=== PATIENT | male | born 1960 | race Caucasian/White ===

== ENCOUNTER 2016-11-19 13:39 | Inpatient (IN) | payer OTHER ==
[2016-11-19] MEDS ORDERED: SODIUM CHLORIDE 0.9% 1,000 ML with MVI, ADULT NO.4 WITH VIT K 10 ML, THIAMINE 100 MG, F... IV ONE ×4 (15:00)
[2016-11-19 15:07] LABS: Basophils % (A) 0 %; CHCM 34.1; Eosinophils % (A) 1 %; HCT 49.6 % (39.0-53.0); Luc # (Auto) 0.07; Luc % (Auto) 2; Lymphocytes % (A) 24 %; MCH 33.3 pg (25.0-35.0); MCHC 32.4 g/dL (31.0-37.0); MCV 103.1 fL (80.0-100.0); Macrocytosis Slight; Mean Platelet Volume 8.4; Monocytes # (A) 0.2 k/uL (0-1.0); Monocytes % (A) 4 %; Neutrophils # (A) 3.1 k/uL (1.3-7.7); Neutrophils % (A) 70 %; RBC 4.81 m/uL (4.30-5.90); RDW 14.1 % (11.5-15.5); WBC 4.4 k/uL (3.8-10.6); WBC (Perox) 4.45
[2016-11-19 15:16] LABS: ALT 206 U/L (21-72); AST 272 U/L (17-59); Alkaline Phosphatase 81 U/L (38-126); Anion Gap 17 mmol/L; Blood Urea Nitrogen 13 mg/dL (9-20); Calcium 8.5 mg/dL (8.4-10.2); Carbon Dioxide 26 mmol/L (22-30); Chloride 105 mmol/L (98-107); Glucose 90 mg/dL (74-99); Magnesium 1.7 mg/dL (1.6-2.3); Non-African American GFR(MDRD) >60 (>60 ml/min/1.73 sqM); Potassium 4.3 mmol/L (3.5-5.1); Sodium 148 mmol/L (137-145); Total Bilirubin 0.9 mg/dL (0.2-1.3); Total Protein 7.4 g/dL (6.3-8.2)
--- NOTE | 2016-11-19 15:46 | ED ---
Alcohol HPI - General Chief Complaint: Alcohol Stated Complaint: ETOH Time Seen by Provider: 11/19/16 13:39 Source: patient, EMS, RN notes reviewed Mode of arrival: EMS Limitations: altered mental status - History of Present Illness Initial Comments: 56-year-old male brought to emergency department via EMS for alcohol. Patient was staying at a hotel unable to pay. Patient states is a chronic drinker. Patient states she has no family member to pick him up at this time. Patient drinks approximately a fifth daily. Patient has no physical complaints at this time. - Related Data Allergies Allergy/AdvReac Type Severity Reaction Status Date / Time No Known Allergies Allergy Verified 11/19/16 15:00 Review of Systems ROS Statement: Those systems with pertinent positive or pertinent negative responses have been documented in the HPI. ROS Other: All systems not noted in ROS Statement are negative. Past Medical History Additional Past Medical History / Comment(s): ETOH abuse History of Any Multi-Drug Resistant Organisms: Unobtainable Past Psychological History: Unable to Obtain Smoking Status: Unknown if ever smoked Past Alcohol Use History: Abuse Past Drug Use History: Unable to Obtain General Exam Limitations: no limitations General appearance: alert, in no apparent distress, appears intoxicated Head exam: Present: atraumatic, normocephalic, normal inspection Eye exam: Present: normal appearance, PERRL, EOMI. Absent: scleral icterus, conjunctival injection, periorbital swelling ENT exam: Present: normal exam, mucous membranes moist Neck exam: Present: normal inspection. Absent: tenderness, meningismus, lymphadenopathy Respiratory exam: Present: normal lung sounds bilaterally. Absent: respiratory distress, wheezes, rales, rhonchi, stridor Cardiovascular Exam: Present: regular rate, normal rhythm, normal heart sounds. Absent: systolic murmur, diastolic murmur, rubs, gallop, clicks GI/Abdominal exam: Present: soft, normal bowel sounds. Absent: distended, tenderness, guarding, rebound, rigid Neurological exam: Present: alert, oriented X3, CN II-XII intact Skin exam: Present: warm, dry, intact, normal color. Absent: rash Course Vital Signs 11/19/16 13:51 Temperature 99.1 F Pulse Rate 71 Respiratory 18 Rate Blood Pressure 134/93 O2 Sat by Pulse 96 Oximetry Medical Decision Making - Medical Decision Making 56-year-old male presented for alcohol. Patient's alcohol level is over 500. Patient be admitted this time for alcohol intoxication, alcohol withdrawal. - Lab Data Result diagrams: 11/19/16 14:54 11/19/16 14:54 Lab Results 11/19/16 11/19/16 Range/Units 14:54 14:54 WBC 4.4 (3.8-10.6) k/uL RBC 4.81 (4.30-5.90) m/uL Hgb 16.0 (13.0-17.5) gm/dL Hct 49.6 (39.0-53.0) % MCV 103.1 H (80.0-100.0) fL MCH 33.3 (25.0-35.0) pg MCHC 32.4 (31.0-37.0) g/dL RDW 14.1 (11.5-15.5) % Plt Count 119 L (150-450) k/uL Neutrophils % 70 % Lymphocytes % 24 % Monocytes % 4 % Eosinophils % 1 % Basophils % 0 % Neutrophils # 3.1 (1.3-7.7) k/uL Lymphocytes # 1.0 (1.0-4.8) k/uL Monocytes # 0.2 (0-1.0) k/uL Eosinophils # 0.0 (0-0.7) k/uL Basophils # 0.0 (0-0.2) k/uL Macrocytosis Slight Sodium 148 H (137-145) mmol/L Potassium 4.3 (3.5-5.1) mmol/L Chloride 105 (98-107) mmol/L Carbon Dioxide 26 (22-30) mmol/L Anion Gap 17 mmol/L BUN 13 (9-20) mg/dL Creatinine 0.86 (0.66-1.25) mg/dL Est GFR (MDRD) Af Amer >60 (>60 ml/min/1.73 sqM) Est GFR (MDRD) Non-Af >60 (>60 ml/min/1.73 sqM) Glucose 90 (74-99) mg/dL Calcium 8.5 (8.4-10.2) mg/dL Magnesium 1.7 (1.6-2.3) mg/dL Total Bilirubin 0.9 (0.2-1.3) mg/dL AST 272 H (17-59) U/L ALT 206 H (21-72) U/L Alkaline Phosphatase 81 (38-126) U/L Total Protein 7.4 (6.3-8.2) g/dL Albumin 4.4 (3.5-5.0) g/dL Lipase 208 (23-300) U/L Serum Alcohol mg/dL Disposition Clinical Impression: Alcoholic intoxication, Elevated LFTs Disposition: ADMITTED IP TO THIS HOSP Condition: Fair Time of Disposition: 15:46
[2016-11-19] MEDS ORDERED: NALOXONE 0.4 MG/ML 1 ML VIAL IV PRN (15:49)
[2016-11-19] MEDS ORDERED: IBUPROFEN 400 MG TAB PO PRN (15:49)
[2016-11-19] MEDS ORDERED: ONDANSETRON 4 MG/2 ML VIAL IVP PRN (15:49)
[2016-11-19] MEDS ORDERED: LORazepam 2 MG/ML SYRINGE IV PRN (15:52)
[2016-11-19 16:22] LABS: Alcohol 500 mg/dL
[2016-11-19] MEDS: THIAMINE 100 MG TAB PO SCH (17:20)
--- NOTE | 2016-11-19 19:18 | HP ---
DATE OF ADMISSION: CHIEF COMPLAINT: Acute alcohol intoxication, chronic alcoholism. HISTORY OF PRESENT ILLNESS: This is first known admission for this gentleman who is a very heavy drinker. Apparently, the motel that he was living brought him to the hospital. He is intoxicated. REVIEW OF SYSTEMS: He denies any jaundice, cirrhosis, head injuries, neurologic problems, heart disease, diabetes, etc. Past medical history, family history, and personal and social histories reveal that he is not allergic to any medication. Not taking any and he has had no surgery. Smokes a pack of cigarettes a day. PHYSICAL EXAMINATION: Blood pressure 138/89 with a pulse 95, respirations 38, and he is afebrile. In general he appeared to be intoxicated. Skin color is normal. Skin is warm and dry. Lymph nodes are not enlarged. Head, ears, eyes, mouth, and throat normal. Neck veins not distended. Thyroid is not enlarged. Chest is clear. Cardiac exam is normal. The abdomen is soft, nontender. Extremities are normal. IMPRESSION: 1. Acute alcohol intoxication. 2. Chronic alcoholism. 3. Impending delirium tremens. 4. Chronic obstructive pulmonary disease. PLAN: 1. Bed rest. 2. IV fluids. 3. CIWA protocol. 4. Detox.
[2016-11-20] MEDS: LORazepam 2 MG/ML SYRINGE IV PRN ×5 (09:42→23:50)
[2016-11-20] MEDS: THIAMINE 100 MG TAB PO SCH ×2 (12:38→18:00)
--- NOTE | 2016-11-20 23:11 | PN ---
CHIEF COMPLAINT: Acute alcohol intoxication. HISTORY OF PRESENT ILLNESS: This gentleman is doing a little bit better. He has not gone into DTs yet. PHYSICAL EXAMINATION: CHEST: Clear. CARDIAC: Normal. ABDOMEN: Soft and nontender. IMPRESSION: 1. Acute alcohol intoxication. 2. Alcoholism. PLAN: No change in program.
[2016-11-21] MEDS: LORazepam 2 MG/ML SYRINGE IV PRN ×2 (02:47→20:20)
--- NOTE | 2016-11-21 11:35 | P.DS ---
Providers Date of admission: 11/20/16 09:54 Expected date of discharge: 11/22/16 Attending physician: Enoch Flores Primary care physician: Stated None Hospital Course: 56-year-old who presented in the emergency room via the EMS system for acute alcohol intoxication. Patient apparently was staying at a hotel was not able to pay he activated EMS system presented to the emergency room he is a chronic drinker drinks alcohol on a daily basis. Blood alcohol level in the emergency room 500. Patient was started on CIWA protocol pending DTs using Ativan patient 's AST and ALT were elevated. The AST was 272. A LT 206. Lipase 204. Total bili 0.9 over the course of the hospitalization patient was detoxed and monitored closely and on the day of discharge patient was asking to be discharged his last Ativan had been given greater than 10 hours before. Patient showed no evidence of active DTs and was felt to be appropriate to be discharged Patient denied any abdominal pain no nausea vomiting no frequent stooling tolerating a diet up ambulating in the room is anxious to be discharged optical laboratory manager did see the patient patient is homeless and did set patient up to be admitted to [facility] Impression discharge diagnosis Present on admission acute alcohol intoxication blood alcohol level D Chronic alcoholism 1 fifth alcohol consumption daily Elevated liver enzymes suspect due to chronic alcoholism The above dictated assessment and findings were discussed with dr flores Impression and the plan of care have been dictated as directed. Bonnie Calvert nurse practitioner acting as a scribe for dr flores Patient Condition at Discharge: Fair Plan - Discharge Summary Discharge Medication List No Known Home Medications [No Known Home Medications] 11/19/16 [History] Follow up Appointment(s)/Referral(s): Enoch Flores MD [STAFF PHYSICIAN] - 11/28/16 10:00 am None,Stated [Primary Care Provider] - 1-2 days Patient Instructions/Handouts: Alcohol Intoxication (DC), Abuse of Alcohol (DC) Discharge Disposition: HOME SELF-CARE
[2016-11-21] MEDS: THIAMINE 100 MG TAB PO SCH ×2 (12:09→18:09)
--- NOTE | 2016-11-21 18:31 | PN ---
CHIEF COMPLAINT: Acute alcohol intoxication. HISTORY OF PRESENT ILLNESS: This gentleman is doing quite well. He is awake and alert. He has not had any signs or symptoms of delirium tremens yet. PHYSICAL EXAMINATION: CHEST: Clear. CARDIAC: Normal. ABDOMEN: Soft, nontender. IMPRESSION: Acute alcohol intoxication. PLAN: Progress activity. Probably home soon unless he goes into DTs.
[2016-11-22] MEDS: THIAMINE 100 MG TAB PO SCH (12:12)
[2016-11-22 16:13] VITALS: BP 104/67; PULSE 108; RESP 20; TEMP 97.8
--- NOTE | 2016-11-22 22:24 | PN ---
DATE OF SERVICE: 11/22/2016 CHIEF COMPLAINT: Acute alcohol intoxication. HISTORY OF PRESENT ILLNESS: This gentleman was to have gone home yesterday but apparently there was not a ride available. He expects go home today. PHYSICAL EXAMINATION: CHEST: Clear. CARDIAC: Normal. ABDOMEN: Soft, nontender. He is not in DTs. IMPRESSION: Acute alcohol intoxication. PLAN: Home today. This will be arranged by the nurse practitioner.
== END 2016-11-22 17:18 | disposition home or self-care (01) | DRG 897 ==
LOC: EC 13:39 → 3OBS 15:55 → OBSVTOIN 11-20 09:54 → 4MS4W 11-20 11:50
PROVIDERS: ADMIT Family Medicine; ATTEND Family Medicine
PROC: HZ2ZZZZ Detoxification Services for Substance Abuse Treatment (ICD-10-PCS; principal; 2016-11-20)
DX: F10.229 Alcohol dependence with intoxication, unspecified (principal); J44.9 Chronic obstructive pulmonary disease, unspecified; Y90.8 Blood alcohol level of 240 mg/100 ml or more; R74.8 Abnormal levels of other serum enzymes; Z59.0 Homelessness
CPT/HCPCS: 36415; 80053; 80320; 83690; 83735; 85025; 96365; 96366; 96375; 96376; 99285

== ENCOUNTER 2017-01-03 19:16 | Inpatient (IN) | payer OTHER ==
[2017-01-03] MEDS ORDERED: LORazepam 2 MG/ML SYRINGE IV STA (19:33)
[2017-01-03] MEDS ORDERED: LORazepam 2 MG/ML SYRINGE IV PRN ×2 (19:35)
--- NOTE | 2017-01-03 19:45 | ED ---
General Adult HPI - General Chief complaint: Altered Mental Status Stated complaint: ETOH Time Seen by Provider: 01/03/17 19:24 Source: patient, EMS, RN notes reviewed, old records reviewed Mode of arrival: EMS Limitations: no limitations - History of Present Illness Initial comments: Chief complaint and history of present illness is a 56-year-old male was brought emergency room by EMS and altered mental status. The patient was being evicted from the hotel and was found on the floor. Didn't laying for a prolonged period of time as noted by the bruises on his forehead. The patient is a known alcoholic. Previous admissions for alcohol intoxication have been reviewed. The patient's not answering questions and trying to sit up and reaching for things that aren't there. Not talking. Necessary to put the patient in soft restraints her to not climb and fall out of bed. - Related Data Home Medications Medication Instructions Recorded Confirmed No Known Home Medications [No 11/19/16 01/03/17 Known Home Medications] Allergies Allergy/AdvReac Type Severity Reaction Status Date / Time No Known Allergies Allergy Verified 11/19/16 16:10 Review of Systems ROS Statement: Those systems with pertinent positive or pertinent negative responses have been documented in the HPI. Review of systems patient is unable to give any information is not talking. His level of consciousness and activity is significantly altered. Known history of alcohol abuse from previous records. No known ALLERGIES from the old chart. Patient be placed on Ativan protocol for alcohol intoxication. ROS Other: All systems not noted in ROS Statement are negative. Past Medical History Additional Past Medical History / Comment(s): ETOH abuse, pt states he cut his left pinky with a table saw. pt poor historian. History of Any Multi-Drug Resistant Organisms: None Reported Past Surgical History: Bowel Resection Additional Past Surgical History / Comment(s): perforated bowel surgery 2004, per pt "1979 bleeding bowel, stomach ulcer" pt poor historian. Past Anesthesia/Blood Transfusion Reactions: No Reported Reaction Past Psychological History: Unable to Obtain Smoking Status: Current every day smoker Past Alcohol Use History: Abuse Past Drug Use History: Unable to Obtain General Exam - General Exam Comments Initial Comments: General: The patient presents with multiple bruises over his head and body. He is found laying on the floor of the hotel room for which she was going to be evicted. EMS reports multiple alcohol related bottles were found in the room. Appears though the patient has been laying on the floor for. At time with rug barton on his for head. The patient is not responding to questions. Sits up and struggles in bed to try to get away. The patient had defecated and urinated on himself. Eye: Pupils are equal, round and reactive to light, extra-ocular movements are intact ; there is normal conjunctiva bilaterally. No signs of icterus. Ears, nose, mouth and throat: Patient would not open his mouth on demand. Neck: All struggling to get out of bed does appear to be moving his neck without apparent pain. CAT scan is pending. Cardiovascular: There is a regular rate and rhythm. No murmur, rub or gallop is appreciated. Respiratory: Lungs are clear to auscultation, respirations are non-labored, breath sounds are equal. No wheezes, stridor, rales, or rhonchi. Gastrointestinal: Soft, non-distended, non-tender abdomen without masses or organomegaly noted. There is no rebound or guarding present. No CVA tenderness. Bowel sounds are unremarkable. Back: There is no tenderness to palpation in the midline. There is no obvious deformity. No rashes noted. Musculoskeletal: Normal ROM, no tenderness, There is no pedal edema. There is no calf tenderness or swelling. Sensation intact. Pulses equal bilaterally 2+. Neurological: CN II-XII intact, There are no obvious motor or sensory deficits. Coordination appears grossly intact. Speech is normal. Skin: Skin is warm and dry and no rashes or lesions are noted. Psychiatric: Cooperative, appropriate mood & affect, normal judgment. Limitations: no limitations Course Vital Signs 01/03/17 01/03/17 19:17 20:21 Temperature 97.7 F Pulse Rate 122 H 128 H Respiratory 22 22 Rate Blood Pressure 142/118 O2 Sat by Pulse 95 96 Oximetry EKG Findings - EKG Comments: EKG Findings:: EKG was done and reviewed at 2019 showing sinus tachycardia rate 133. No acute ST elevations appreciated. AL interval is 140 QRS 84 QT [address] Anguiano Medical Decision Making - Medical Decision Making Medical decision making the patient's white count 10.9 hemoglobin 14 hematocrit of 40 with a potassium 3.9, BUN 17 creatinine 0.74 the GFR greater than 60. Glucose 129, AST 143. M.D. fraction 28.4 troponin less than 0.012 but CK is 5376. Urine clean no signs of infection drug triage negative for drugs of abuse. Alcohol elevated at 0.533. Patient is being hydrated for rhabdomyolysis. Chest x-ray was done supine position portably. Reviewed by radiologist entire report was reviewed his final impression is chronic changes without evidence for acute pulmonary disease. As read by Dr. Arredondo Patient just spoke for the first time. He'll be placed on a backboard and restrained so that we get a CAT scan of his head neck. CT of the brain was done and reviewed by radiologist entire report was reviewed his impression is age-related atrophic and chronic small vessel ischemic change without acute intracranial processes seen at this time. Cervical spine was reviewed his final impression is no evidence for acute fracture or subluxation of the cervical spine. As read by Dr. Arredondo The patient's case discussed Dr. Bob on-call for general medicine. He saw the patient in the emergency room. The patient is going to be admitted to the ICU. - Lab Data Result diagrams: 01/03/17 19:43 01/03/17 19:43 Lab Results 01/03/17 01/03/17 01/03/17 Range/Units 19:43 19:43 19:43 WBC 10.9 H (3.8-10.6) k/uL RBC 4.09 L (4.30-5.90) m/uL Hgb 14.0 (13.0-17.5) gm/dL Hct 40.6 (39.0-53.0) % MCV 99.2 (80.0-100.0) fL MCH 34.2 (25.0-35.0) pg MCHC 34.5 (31.0-37.0) g/dL RDW 12.8 (11.5-15.5) % Plt Count 202 (150-450) k/uL Neutrophils % 81 % Lymphocytes % 13 % Monocytes % 4 % Eosinophils % 0 % Basophils % 1 % Neutrophils # 8.9 H (1.3-7.7) k/uL Lymphocytes # 1.4 (1.0-4.8) k/uL Monocytes # 0.4 (0-1.0) k/uL Eosinophils # 0.0 (0-0.7) k/uL Basophils # 0.1 (0-0.2) k/uL PT (9.0-12.0) sec INR (<1.1) APTT (22.0-30.0) sec Sodium 132 L (137-145) mmol/L Potassium 3.9 (3.5-5.1) mmol/L Chloride 95 L (98-107) mmol/L Carbon Dioxide 19 L (22-30) mmol/L Anion Gap 18 mmol/L BUN 7 L (9-20) mg/dL Creatinine 0.74 (0.66-1.25) mg/dL Est GFR (MDRD) Af Amer >60 (>60 ml/min/1.73 sqM) Est GFR (MDRD) Non-Af >60 (>60 ml/min/1.73 sqM) Glucose 129 H (74-99) mg/dL Calcium 8.9 (8.4-10.2) mg/dL Total Bilirubin 1.1 (0.2-1.3) mg/dL AST 143 H (17-59) U/L ALT 67 (21-72) U/L Alkaline Phosphatase 75 (38-126) U/L Total Creatine Kinase 5376 H (55-170) U/L CK-MB (CK-2) 28.4 H* (0.0-2.4) ng/mL CK-MB (CK-2) Rel Index Troponin I <0.012 (0.000-0.034) ng/mL Total Protein 6.9 (6.3-8.2) g/dL Albumin 4.2 (3.5-5.0) g/dL Amylase 48 (30-110) U/L Lipase 91 (23-300) U/L Urine Color Urine Appearance (Clear) Urine pH (5.0-8.0) Ur Specific [place] (1.001-1.035) Urine Protein (Negative) Urine Glucose (UA) (Negative) Urine Ketones (Negative) Urine Blood (Negative) Urine Nitrite (Negative) Urine Bilirubin (Negative) Urine Urobilinogen (<2.0) mg/dL Ur Leukocyte Esterase (Negative) Urine WBC (0-5) /hpf Urine Mucus (None) /hpf Urine Opiates Screen (NotDetected) Ur Oxycodone Screen (NotDetected) Urine Methadone Screen (NotDetected) Ur Propoxyphene Screen (NotDetected) Ur Barbiturates Screen (NotDetected) U Tricyclic Antidepress (NotDetected) Ur Phencyclidine Scrn (NotDetected) Ur Amphetamines Screen (NotDetected) U Methamphetamines Scrn (NotDetected) U Benzodiazepines Scrn (NotDetected) Urine Cocaine Screen (NotDetected) U Marijuana (THC) Screen (NotDetected) Serum Alcohol 533 mg/dL 01/03/17 01/03/17 Range/Units 19:43 19:43 WBC (3.8-10.6) k/uL RBC (4.30-5.90) m/uL Hgb (13.0-17.5) gm/dL Hct (39.0-53.0) % MCV (80.0-100.0) fL MCH (25.0-35.0) pg MCHC (31.0-37.0) g/dL RDW (11.5-15.5) % Plt Count (150-450) k/uL Neutrophils % % Lymphocytes % % Monocytes % % Eosinophils % % Basophils % % Neutrophils # (1.3-7.7) k/uL Lymphocytes # (1.0-4.8) k/uL Monocytes # (0-1.0) k/uL Eosinophils # (0-0.7) k/uL Basophils # (0-0.2) k/uL PT 10.8 (9.0-12.0) sec INR 1.1 (<1.1) APTT 25.4 (22.0-30.0) sec Sodium (137-145) mmol/L Potassium (3.5-5.1) mmol/L Chloride (98-107) mmol/L Carbon Dioxide (22-30) mmol/L Anion Gap mmol/L BUN (9-20) mg/dL Creatinine (0.66-1.25) mg/dL Est GFR (MDRD) Af Amer (>60 ml/min/1.73 sqM) Est GFR (MDRD) Non-Af (>60 ml/min/1.73 sqM) Glucose (74-99) mg/dL Calcium (8.4-10.2) mg/dL Total Bilirubin (0.2-1.3) mg/dL AST (17-59) U/L ALT (21-72) U/L Alkaline Phosphatase (38-126) U/L Total Creatine Kinase (55-170) U/L CK-MB (CK-2) (0.0-2.4) ng/mL CK-MB (CK-2) Rel Index Troponin I (0.000-0.034) ng/mL Total Protein (6.3-8.2) g/dL Albumin (3.5-5.0) g/dL Amylase (30-110) U/L Lipase (23-300) U/L Urine Color Light Yellow Urine Appearance Clear (Clear) Urine pH 6.5 (5.0-8.0) Ur Specific [place] 1.004 (1.001-1.035) Urine Protein Negative (Negative) Urine Glucose (UA) Negative (Negative) Urine Ketones Trace H (Negative) Urine Blood Small H (Negative) Urine Nitrite Negative (Negative) Urine Bilirubin Negative (Negative) Urine Urobilinogen <2.0 (<2.0) mg/dL Ur Leukocyte Esterase Negative (Negative) Urine WBC <1 (0-5) /hpf Urine Mucus Rare H (None) /hpf Urine Opiates Screen Not Detected (NotDetected) Ur Oxycodone Screen Not Detected (NotDetected) Urine Methadone Screen Not Detected (NotDetected) Ur Propoxyphene Screen Not Detected (NotDetected) Ur Barbiturates Screen Not Detected (NotDetected) U Tricyclic Antidepress Not Detected (NotDetected) Ur Phencyclidine Scrn Not Detected (NotDetected) Ur Amphetamines Screen Not Detected (NotDetected) U Methamphetamines Scrn Not Detected (NotDetected) U Benzodiazepines Scrn Not Detected (NotDetected) Urine Cocaine Screen Not Detected (NotDetected) U Marijuana (THC) Screen Not Detected (NotDetected) Serum Alcohol mg/dL Disposition Clinical Impression: Alcohol intoxication delirium, Rhabdomyolysis Disposition: ADMITTED IP TO THIS HOSP Condition: Serious
[2017-01-03] MEDS ORDERED: SODIUM CHLORIDE 0.9% 1,000 ML with MVI, ADULT NO.4 WITH VIT K 10 ML, THIAMINE 100 MG, F... IV ONE ×4 (20:00)
[2017-01-03 20:01] LABS: Appearance,Urine Clear (Clear); Bilirubin,Urine Negative (Negative); Glucose,Urine (UA) Negative (Negative); Ketones,Urine Trace (Negative); Leukocyte Esterase,Urine Negative (Negative); Mucus,Urine Rare /hpf; Nitrite,Urine Negative (Negative); PH, Urine 6.5 (5.0-8.0); Particle Count 1261; Protein,Urine Negative (Negative); Specific Gravity,Urine 1.004 (1.001-1.035); UA Billing (MACRO vs. MICRO) MICRO; Urobilinogen,Urine <2.0 mg/dL (<2.0); WBC,Urine <1 /hpf (0-5)
[2017-01-03 20:02] LABS: Basophils # (A) 0.1 k/uL (0-0.2); Basophils % (A) 1 %; CH 34.8; CHCM 35.2; Eosinophils % (A) 0 %; HCT 40.6 % (39.0-53.0); HDW 2.04; Luc # (Auto) 0.12; Luc % (Auto) 1; Lymphocytes # (A) 1.4 k/uL (1.0-4.8); Lymphocytes % (A) 13 %; MCH 34.2 pg (25.0-35.0); MCHC 34.5 g/dL (31.0-37.0); MCV 99.2 fL (80.0-100.0); Monocytes # (A) 0.4 k/uL (0-1.0); Monocytes % (A) 4 %; Neutrophils # (A) 8.9 k/uL (1.3-7.7); Neutrophils % (A) 81 %; RBC 4.09 m/uL (4.30-5.90); RDW 12.8 % (11.5-15.5); WBC 10.9 k/uL (3.8-10.6); WBC (Perox) 10.89
[2017-01-03 20:03] LABS: ALT 67 U/L (21-72); AST 143 U/L (17-59); Alkaline Phosphatase 75 U/L (38-126); Amylase 48 U/L (30-110); Anion Gap 18 mmol/L; Blood Urea Nitrogen 7 mg/dL (9-20); Calcium 8.9 mg/dL (8.4-10.2); Carbon Dioxide 19 mmol/L (22-30); Chloride 95 mmol/L (98-107); Glucose 129 mg/dL (74-99); Non-African American GFR(MDRD) >60 (>60 ml/min/1.73 sqM); Potassium 3.9 mmol/L (3.5-5.1); Sodium 132 mmol/L (137-145); Total Bilirubin 1.1 mg/dL (0.2-1.3); Total Protein 6.9 g/dL (6.3-8.2)
[2017-01-03 20:16] LABS: Alcohol 533 mg/dL
--- NOTE | 2017-01-03 20:25 | XR ---
EXAMINATION TYPE: XR chest 1V portable DATE OF EXAM: 01/03/2017 8:20 PM HISTORY: Shortness of breath. COMPARISON: 05/17/2010 TECHNIQUE: Single view of the chest is submitted. FINDINGS: Demonstrated are scattered senescent parenchymal change. There is no evidence for focal infiltrate. The heart is stable. Hilar and mediastinal structures are within normal limits. Degenerative changes are seen of the dorsal spine. IMPRESSION: 1. Chronic changes without evidence for acute pulmonary disease.
[2017-01-03 20:30] LABS: Troponin I <0.012 ng/mL (0.000-0.034)
[2017-01-03 20:40] LABS: INR 1.1 (<1.1); Partial Thromboplastin Time 25.4 sec (22.0-30.0); Prothrombin Time 10.8 sec (9.0-12.0)
[2017-01-03 20:53] LABS: Creatine Kinase 5376 U/L (55-170); Creatine Kinase MB 28.4 ng/mL (0.0-2.4)
--- NOTE | 2017-01-03 21:08 | CT ---
EXAMINATION TYPE: CT brain danielle gann con DATE OF EXAM: 01/03/2017 9:02 PM COMPARISON: September 14, 2012 HISTORY: Altered mental status, ETOH. CT DLP: 1550.[address] of the brain was performed. The ventricles, basal cisterns and sulci overlying the cerebral convexities demonstrate mild enlargem ent. There is no evidence for intracranial hemorrhage or sulcal effacement. There is decreased attenuatio n about the periventricular white matter and deep white matter of both cerebral hemispheres, compatib le with chronic small vessel ischemia. No mass effects are seen. If symptoms persist consider MRI. Osseous calvarium is intact. IMPRESSION: 1. Age related atrophic and chronic small vessel ischemic change without acute intracranial process seen at this time. CT Cervical Spine: Unenhanced CT of the cervical spine was performed with bone and soft tissue window settings submitted . Coronal and sagittal reconstruction is obtained. There is normal alignment and prevertebral soft tissues. No evidence for acute cervical fracture . Scattered degenerative disc disease and spondylosis. Biapical scarring. IMPRESSION: 1. No evidence for acute fracture or subluxation of the cervical spine.
[2017-01-03] MEDS ORDERED: NALOXONE 0.4 MG/ML 1 ML VIAL IV PRN (21:33)
[2017-01-03 22:53] LABS: Glucose,Whole Blood 463 mg/dL (75-99)
[2017-01-03 23:00] LABS: Glucose,Whole Blood 86 mg/dL (75-99)
[2017-01-03 23:00] LABS: Glucose,Whole Blood 87 mg/dL (75-99)
[2017-01-04] MEDS: THIAMINE 100 MG TAB PO SCH ×3 (00:28→15:28)
[2017-01-04] MEDS: SODIUM CHLORIDE 0.9% 1,000 ML IV SCH ×4 (00:29→21:04)
[2017-01-04 00:52] LABS: Troponin I <0.012 ng/mL (0.000-0.034)
[2017-01-04 00:54] VITALS: BMI 16.5
[2017-01-04 01:21] LABS: Creatine Kinase 5896 U/L (55-170)
[2017-01-04 01:22] LABS: Creatine Kinase MB 32.1 ng/mL (0.0-2.4)
[2017-01-04 05:46] LABS: Basophils % (A) 0 %; CH 34.7; CHCM 35.9; Eosinophils # (A) 0.1 k/uL (0-0.7); Eosinophils % (A) 1 %; HCT 37.8 % (39.0-53.0); HDW 2.16; HGB 13.7 gm/dL (13.0-17.5); Luc # (Auto) 0.08; Luc % (Auto) 1; Lymphocytes # (A) 1.5 k/uL (1.0-4.8); Lymphocytes % (A) 18 %; MCH 34.9 pg (25.0-35.0); MCHC 36.1 g/dL (31.0-37.0); MCV 96.7 fL (80.0-100.0); Mean Platelet Volume 7.2; Monocytes # (A) 0.2 k/uL (0-1.0); Monocytes % (A) 3 %; Neutrophils # (A) 6.5 k/uL (1.3-7.7); Neutrophils % (A) 77 %; RBC 3.91 m/uL (4.30-5.90); RDW 12.6 % (11.5-15.5); WBC 8.4 k/uL (3.8-10.6); WBC (Perox) 9.24
[2017-01-04 06:03] LABS: ALT 65 U/L (21-72); AST 142 U/L (17-59); Alkaline Phosphatase 65 U/L (38-126); Amylase 39 U/L (30-110); Anion Gap 11 mmol/L; Blood Urea Nitrogen 3 mg/dL (9-20); Calcium 8.4 mg/dL (8.4-10.2); Carbon Dioxide 24 mmol/L (22-30); Chloride 107 mmol/L (98-107); Glucose 76 mg/dL (74-99); LDH 1020 U/L (313-618); Magnesium 1.6 mg/dL (1.6-2.3); Non-African American GFR(MDRD) >60 (>60 ml/min/1.73 sqM); Potassium 3.9 mmol/L (3.5-5.1); Sodium 142 mmol/L (137-145); Total Bilirubin 1.3 mg/dL (0.2-1.3); Total Protein 6.3 g/dL (6.3-8.2)
[2017-01-04 06:48] LABS: Creatine Kinase 5411 U/L (55-170)
[2017-01-04 06:53] LABS: Creatine Kinase MB 24.6 ng/mL (0.0-2.4); Troponin I <0.012 ng/mL (0.000-0.034)
[2017-01-04] MEDS: POTASSIUM CHLORIDE 10 MEQ, LIDOCAINE 2% INJ 10 MG in SODIUM CHLORIDE 0.9% 100 ML IV SCH ×2 (09:06→11:16)
[2017-01-04] MEDS: MAGNESIUM SULFATE-D5W PMX 1 GM in DEXTROSE/WATER 1 100ML.BAG IVPB SCH ×2 (09:06→11:16)
[2017-01-04] MEDS: PANTOPRAZOLE 40 MG/10 ML VIAL IV SCH (09:16)
--- NOTE | 2017-01-04 11:26 | HP ---
DATE OF ADMISSION: CHIEF COMPLAINT: A 56-year-old white male with alcohol intoxication, acute rhabdomyolysis and altered mental status with abrasions to his face from a fall. HISTORY OF PRESENT ILLNESS: This 56-year-old white male with apparently alcohol level of 400 to 500 after being evicted from the hotel was found lying on the floor for a prolonged period of time and he was admitted with rhabdomyolysis with contusions to the forehead and altered mental status. He is in 4-point restraints in the emergency room when I examined the patient. He is a known alcoholic. Medications are negative. Allergies are negative. REVIEW OF SYSTEMS: Could not obtain them as the patient is not responding to questions, although he does look around at you and try to get out of bed. Hence, he is 4-point restraints. Significant altered mental status. No known allergies in the old chart. PAST MEDICAL HISTORY: Alcohol abuse. Apparently he has a history of left pinky table saw cut, a bowel resection perforated bowel surgery in 2004, in 1979 bleeding bowel, stomach ulcer. Current every day smoker. Alcohol abuse. PHYSICAL EXAMINATION: He is thin, cachectic. INTEGUMENT: He has multiple bruises over his head and body. There is a nasal abrasion about 1 cm x 0.5 cm open to the dermis. ( ) the patient apparently defecated and urinated on himself in the bed here. OPHTHALMOLOGIC: Pupils equal, round and reactive to light and accommodation. PSYCH: He stares and looks at you, but does not respond. Tries to whisper things. Generally disheveled. He is trying to get out of bed. He is moving all 4 extremities. CARDIOVASCULAR: S1, S2. LUNGS: Wheezes x4. GI: Distended, possibly ascitic wave is seen. No guarding. No wincing when I push on his belly. Cranial nerves appear to be no motor or sensory deficits. SKIN: Warm, dry, abrasions as mentioned on the forehead, in the nose, some bruising in the fingers. Temperature 97.7, pulse 120s, respiratory rate 20 to 22, blood pressure 142 to 118. He is on CIWA protocol. His O2 sat is 95% to 96%. EKG showed sinus tachycardia. White count is 10.9, hemoglobin 14. Potassium 3.9. BUN 7, creatinine 0.74. CK is 5376. Troponin is less than 0.012. Triage drug screen negative for other drugs. Alcohol level is 533. ASSESSMENT: 1. Acute rhabdomyolysis. 2. Acute alcohol withdrawal. 3. Acute alcohol intoxication. 4. Abrasions to the facial area. Chest x-ray was done, chronic changes, no acute process. CAT scan of his head and neck was done, age related changes, no intracranial bleeding. Cervical spine showed no fracture. IV fluids. [facility] protocol. Watch for signs of alcohol withdrawal and continue fluid input and monitor renal function for rhabdomyolysis.
[2017-01-04] MEDS: HEPARIN SODIUM,PORCINE 5,000 UNIT/ML 1 ML VIAL SQ SCH ×3 (13:22→23:35)
[2017-01-04] MEDS: LORazepam 2 MG/ML SYRINGE IV PRN ×2 (13:23→21:08)
--- NOTE | 2017-01-04 13:33 | P.CNPUL ---
History of Present Illness Consult date: 01/04/17 Requesting physician: Juarez Bob Reason for consult: other (Critical care management) Chief complaint: Altered mental status History of present illness: This is a pleasant 56-year-old gentleman who follows with no primary care physician. He is on no home medications. No past medical history. He does admit to significant alcohol abuse. The patient was being evicted from his hotel while they found him on the floor unconscious. There was some noted trauma to the face. Over alcohol bottles laying on the floor as well. EMS was called and while there the patient did struggle to get up and get away and subsequently defecated and urinated on himself. He was brought here to the emergency room. His serum alcohol level was 533. His total creatinine kinase was 5376 with a CK-MB of 28.4. AST 143 he is seen today in the intensive care unit and consultation. He is awake and alert and oriented. He denies any pain. He does have abrasions on his face. He admits to drinking 2 bottles of vodka and has been drinking quite heavily the past several months. He had been living with his daughter but more recently in a hotel room. He states he lost his home to [employer]. 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 He denies the fact that he was intentionally trying to harm himself. He states he is got carried away with the drinking. He feels as though he stumbled down the stairs heading down to the beach in [place] and that is how he received the trauma. He does admit to smoking approximately a pack a day for the past 40 years. He denies any illicit drug use. He is hemodynamically stable. He has been afebrile. He is maintaining O2 saturations in the mid 90s on room air. His x-ray reveals no acute pulmonary process. Computed tomography scan of the head was negative. No active DTs noted. His hands are slightly tremorous. States he is willing to try to quit drinking and is asking about Antabuse. Review of Systems 14 point review of system was conducted. All negative other than as mentioned in HPI. Past Medical History Additional Past Medical History / Comment(s): ETOH abuse, pt states he cut his left pinky with a table saw. pt poor historian. History of Any Multi-Drug Resistant Organisms: None Reported Past Surgical History: Bowel Resection Additional Past Surgical History / Comment(s): perforated bowel surgery 2005, per pt "1980 bleeding bowel, stomach ulcer" pt poor historian. Past Anesthesia/Blood Transfusion Reactions: No Reported Reaction Past Psychological History: Unable to Obtain Smoking Status: Current every day smoker Past Alcohol Use History: Abuse Past Drug Use History: Unable to Obtain Medications and Allergies Home Medications Medication Instructions Recorded Confirmed Type No Known Home Medications [No 11/19/16 01/03/17 History Known Home Medications] Allergies Allergy/AdvReac Type Severity Reaction Status Date / Time No Known Allergies Allergy Verified 11/19/16 16:10 Physical Exam Vitals: Vital Signs Temp Pulse Resp BP Pulse Ox 01/04/17 12:00 98 F 75 15 139/82 95 01/04/17 11:00 71 27 H 133/79 97 01/04/17 10:00 95 12 129/85 96 01/04/17 09:00 132 H 24 115/71 98 01/04/17 08:00 98 F 107 H 11 L 124/79 98 01/04/17 07:00 81 21 120/75 97 01/04/17 06:00 99 14 115/65 94 L 01/04/17 05:00 127 H 14 113/72 82 L 01/04/17 04:00 94 18 109/73 95 01/04/17 03:46 23 01/04/17 03:00 113 H 23 102/69 94 L 01/04/17 02:00 115 H 22 125/74 95 01/04/17 01:00 117 H 20 124/75 95 01/04/17 00:00 98.3 F 111 H 16 125/76 94 L 01/03/17 23:27 114 H 22 124/76 94 L 01/03/17 23:20 127 H 36 H 124/76 94 L 01/03/17 23:10 117 H 31 H 124/76 94 L 01/03/17 23:00 111 H 16 96 01/03/17 22:50 122 H 35 H 01/03/17 22:49 124 H 15 01/03/17 22:20 97.5 F L 115 H 20 120/85 96 Intake and Output 01/03/17 01/04/17 01/04/17 22:59 06:59 14:59 Intake Total 225 600 Output Total 3245 1385 Balance -8957 -834 Intake: Intake, IV Titration 225 600 Amount Magnesium Sulfate-D5w Pmx 200 1 gm In Dextrose/Water 1 100ml.bag @ 100 mls/hr IVPB Q1H [facility] Rx#: [id number] Potassium Chloride 10 meq 200 Lidocaine 2% Inj 10 mg In Sodium Chloride 0.9% 100 ml @ 100 mls/hr IV Q1HR [facility] Rx#:[id number] Sodium Chloride 0.9% 1, 100 000 ml @ 100 mls/hr IV . Q10H [facility] Rx#:[id number] Sodium Chloride 0.9% 1, 225 100 000 ml @ 100 mls/hr IV . Q10H7M ONE with Mvi, Adult No.4 with Vit K 10 ml with Thiamine 100 mg with Folic Acid 1 mg Rx#: [id number] Output: Urine 3245 1385 Other: Voiding Method Incontinent Indwelling Catheter Indwelling Catheter Weight 49.442 kg 72.1 kg GENERAL EXAM: Alert, active, comfortable in no apparent distress. HEAD: Normocephalic. Noted abrasions on his face. EYES: Normal reaction of pupils, equal size. NOSE: Clear with pink turbinates. THROAT: No erythema or exudates. NECK: No masses, no JVD. CHEST: No chest wall deformity. LUNGS: Equal air entry with no crackles, wheeze, rhonchi or dullness. CVS: S1 and S2 normal with no audible mumurs, regular rhythm. ABDOMEN: No hepatosplenomegaly, normal bowel sounds, no guarding or rigidity. SPINE: No scoliosis or deformity SKIN: No rashes CENTRAL NERVOUS SYSTEM: No focal deficits, tone is normal in all 4 extremities. Extremities: There is no significant peripheral edema. No clubbing, no cyanosis. Peripheral pulses are intact. Results - Laboratory Findings CBC and BMP: 01/04/17 05:34 01/04/17 05:34 PT/INR, D-dimer PT 10.8 sec (9.0-12.0) 01/03/17 19:43 INR 1.1 (<1.1) 01/03/17 19:43 Abnormal lab findings: Abnormal Labs 01/03/17 01/03/17 01/04/17 22:51 23:54 05:34 RBC 3.91 L Hct 37.8 L BUN Creatinine POC Glucose (mg/dL) 463 H AST Lactate Dehydrogenase Total Creatine Kinase 5896 H CK-MB (CK-2) 32.1 H* 01/04/17 01/04/17 05:34 05:34 RBC Hct BUN 3 L Creatinine 0.63 L POC Glucose (mg/dL) AST 142 H Lactate Dehydrogenase 1020 H Total Creatine Kinase 5411 H CK-MB (CK-2) 24.6 H* - Diagnostic Findings Chest x-ray: image reviewed Assessment and Plan Plan: Impression: #1 Altered mental status secondary to acute alcohol intoxication. #2 Rhabdomyolysis secondary to suspected prolonged downtime on the floor. #3 Alcoholism. #4 Elevated AST secondary to above. #5 Chronic and ongoing tobacco dependence. Plan: The patient was seen and evaluated by Dr. Gregory. He is stable from the pulmonary and critical care standpoint. We will transfer him out of the intensive care unit today. He'll remains on the CIWA protocol and will be observed for alcohol withdrawal. He is educated regarding the importance of complete alcohol cessation. He is educated regarding the importance of complete smoking cessation. NicoDerm patch will be added. She'll work has been consulted as the patient has been evicted. The patient is not willing to go to inpatient alcohol withdrawal rehabilitation. We will continue to follow make further recommendations based on his clinical status. Time with Patient: Greater than 30
[2017-01-04] MEDS ORDERED: ALBUTEROL NEB (CONC) 2.5 MG/0.5 ML INHALATION PRN (13:50)
[2017-01-04] MEDS: NICOTINE 14MG/24HR PATCH TRANSDERM SCH (14:47)
--- NOTE | 2017-01-04 16:59 | CDI ---
In responding to this query, please exercise your independent professional judgment. The [facility] Coding Staff and Clinical Documentation Specialists appreciate your assistance in clarifying documentation, maintaining compliance with coding guidelines, accurately documenting patients condition and capturing severity of illness. The fact that a question is asked does not imply that any particular answer is desired or expected. Communication forms are a method of clarifying documentation and are not made part of the Legal Health Record. Thank you in advance for your clarification. Last Revision, November 2015 Bel Peralta [address] [facility] [place] [address] Documentation Clarification Form Date: 01/04/2017 4:34:00 PM From: Marissa Martinez Phone: Admit Date: 01/03/2017 9:33:00 PM Patient Name: Amos Lazo Visit Number: [id number] Dr. Juarez Bob Altered mental status was documented in the H&P and Consult not on 01/04/17 Patient history/risk factors: Known alcoholism, Clinical Indicators: Significant altered mental status, Rhabdo w/ contusions forehead altered mental status per H&P, Acute Alcohol intoxication, pt. not responding to questions and reaching for things that are not there per ED note Labs: Serum Alcohol 533, CK [id number] CT Head: no acute process, Treatment: NS @ 750, IVF w/ MVI , In your professional opinion, please clarify the etiology of the altered mental status, if known. Encephalopathy (specify Type and Underlying Medical Illness) Delirium (specify cause): Other condition (please specify) Unable to determine Please document in your progress notes and discharge summary in order to capture severity of illness and risk of mortality. Include clinical findings that support your diagnosis. FYI: Press F11 to launch patient chart. Place X here if this finding has no clinical significance, is not applicable or if you are not able to provide any additional documentation. EDWIND
[2017-01-05] MEDS: SODIUM CHLORIDE 0.9% 1,000 ML IV SCH ×3 (05:45→19:15)
[2017-01-05] MEDS: PANTOPRAZOLE 40 MG/10 ML VIAL IV SCH (07:42)
[2017-01-05] MEDS: HEPARIN SODIUM,PORCINE 5,000 UNIT/ML 1 ML VIAL SQ SCH ×3 (07:42→22:29)
[2017-01-05] MEDS: NICOTINE 14MG/24HR PATCH TRANSDERM SCH (07:42)
[2017-01-05] MEDS: THIAMINE 100 MG TAB PO SCH ×2 (11:09→15:20)
--- NOTE | 2017-01-05 13:51 | P.PN ---
Subjective This is a pleasant 56-year-old gentleman who follows with no primary care physician. He is on no home medications. No past medical history. He does admit to significant alcohol abuse. The patient was being evicted from his hotel while they found him on the floor unconscious. There was some noted trauma to the face. Over alcohol bottles laying on the floor as well. EMS was called and while there the patient did struggle to get up and get away and subsequently defecated and urinated on himself. He was brought here to the emergency room. His serum alcohol level was 533. His total creatinine kinase was 5376 with a CK-MB of 28.4. AST 143 he is seen today in the intensive care unit and consultation. He is awake and alert and oriented. He denies any pain. He does have abrasions on his face. He admits to drinking 2 bottles of vodka and has been drinking quite heavily the past several months. He had been living with his daughter but more recently in a hotel room. He [facility] 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 He denies the fact that he was intentionally trying to harm himself. He states he is got carried away with the drinking. He feels as though he stumbled down the stairs heading down to the beach in [place] and that is how he received the trauma. He does admit to smoking approximately a pack a day for the past 40 years. He denies any illicit drug use. He is hemodynamically stable. He has been afebrile. He is maintaining O2 saturations in the mid 90s on room air. His x-ray reveals no acute pulmonary process. Computed tomography scan of the head was negative. No active DTs noted. His hands are slightly tremorous. States he is willing to try to quit drinking and is asking about Antabuse. On 01/05/2017 the patient got moved out of the intensive care unit. The patient doing extremely well. No specific complaints. No nausea or vomiting. No abdominal pain. No shortness of breath. He is still being hydrated for his rhabdomyolysis. No signs of any delirium tremens. home weatherizing worker will be working with this patient regarding his home situation and living situation. He may be also be a good candidate for alcohol rehabilitation Objective - Vital Signs Vital signs: Vital Signs Temp 97.1 F L 04/27/17 07:00 Pulse 86 01/05/17 07:00 Resp 18 01/05/17 07:00 BP 140/96 01/05/17 07:00 Pulse Ox 98 01/05/17 07:00 Intake & Output 01/04/17 01/05/17 01/05/17 18:59 06:59 18:59 Intake Total 1200 Output Total 1385 Balance -185 Intake: Intake, IV Titration 600 Amount Magnesium Sulfate-D5w Pmx 200 1 gm In Dextrose/Water 1 100ml.bag @ 100 mls/hr IVPB Q1H [facility] Rx#: [id number] Potassium Chloride 10 meq 200 Lidocaine 2% Inj 10 mg In Sodium Chloride 0.9% 100 ml @ 100 mls/hr IV Q1HR [facility] Rx#:[id number] Sodium Chloride 0.9% 1, 100 000 ml @ 100 mls/hr IV . Q10H [facility] Rx#:[id number] Sodium Chloride 0.9% 1, 100 000 ml @ 100 mls/hr IV . Q10H7M ONE with Mvi, Adult No.4 with Vit K 10 ml with Thiamine 100 mg with Folic Acid 1 mg Rx#: [id number] Oral 600 Output: Urine 1385 Other: Voiding Method Urinal Urinal Urinal # Voids 1 2 3 # Bowel Movements 1 - Exam The patient appeared well nourished and normally developed. Vital signs as documented. Head exam is unremarkable. No scleral icterus or corneal arcus noted. Neck is without jugular venous distension, thyromegaly, or carotid bruits. Carotid upstrokes are brisk bilaterally. Lungs are clear to auscultation and percussion. Cardiac exam reveals the PMI to be normally sized and situated. Rhythm is regular. First and second heart sounds normal. No murmurs, rubs or gallops. Abdominal exam reveals normal bowel sounds, no masses , no organomegaly and no aortic enlargement. Extremities are nonedematous and both femoral and pedal pulses are normal. - Labs CBC & Chem 7: 01/04/17 05:34 01/04/17 05:34 Assessment and Plan Plan: Impression: #1 Altered mental status secondary to acute alcohol intoxication, recovered #2 Rhabdomyolysis secondary to suspected prolonged downtime on the floor, improving #3 Alcoholism, no signs of delirium tremens #4 Elevated AST secondary to above. #5 Chronic and ongoing tobacco dependence. Plan Pulmonary and critical care was signed off the case. Continue fluid hydration. Monitor CPK levels. Monitor electrolytes. Watch for DT. home weatherizing worker consultation. Alcohol rehabilitation.
[2017-01-06] MEDS: NICOTINE 14MG/24HR PATCH TRANSDERM SCH (08:33)
[2017-01-06] MEDS: HEPARIN SODIUM,PORCINE 5,000 UNIT/ML 1 ML VIAL SQ SCH ×2 (08:33→17:39)
[2017-01-06] MEDS: PANTOPRAZOLE 40 MG TABLET PO SCH (08:34)
[2017-01-06 10:09] LABS: ALT 70 U/L (21-72); AST 100 U/L (17-59); Alkaline Phosphatase 73 U/L (38-126); Anion Gap 9 mmol/L; Blood Urea Nitrogen 8 mg/dL (9-20); Calcium 9.6 mg/dL (8.4-10.2); Carbon Dioxide 23 mmol/L (22-30); Chloride 105 mmol/L (98-107); Glucose 85 mg/dL (74-99); Non-African American GFR(MDRD) >60 (>60 ml/min/1.73 sqM); Sodium 137 mmol/L (137-145); Total Bilirubin 1.9 mg/dL (0.2-1.3); Total Protein 6.9 g/dL (6.3-8.2)
[2017-01-06] MEDS: THIAMINE 100 MG TAB PO SCH ×2 (13:20→17:39)
[2017-01-06] MEDS: SODIUM CHLORIDE 0.9% 1,000 ML IV SCH ×2 (13:20→22:12)
--- NOTE | 2017-01-06 13:34 | CDI ---
In responding to this query, please exercise your independent professional judgment. The [facility] Coding Staff and Clinical Documentation Specialists appreciate your assistance in clarifying documentation, maintaining compliance with coding guidelines, accurately documenting patients condition and capturing severity of illness. The fact that a question is asked does not imply that any particular answer is desired or expected. Communication forms are a method of clarifying documentation and are not made part of the Legal Health Record. Thank you in advance for your clarification. Last Revision, July 2015 Bel Peralta [address] [facility] [place] [address] Documentation Clarification Form Date: 01/06/2017 1:17:00 PM From: Marissa Martinez RN, CDS Admit Date: 01/03/2017 9:33:00 PM Patient Name: Amos Lazo Visit Number: [id number] Dr. Juarez Bob, Patient history/risk factors: patient found lying on floor for prolonged period of time Clinical Indicators: Lab findings: CK [id number], "Rhabdomyolosis secondary to suspected prolonged downtime on the floor" per Pulmonary consult, "Acute Rhabdomyolosis, Acute Alcohol withdrawal, Acute alcohol intoxication, altered mental status, abrasions to face from fall" per H&P Vital Signs: HR 107-127 on admission, HR 132 on 01/04/17, Treatment: NS @750, then 100/hour In your professional opinion, can you please specify the type of Rhabdomyolosis? Traumatic Rhabdomyolosis Rhabdomyolosis-Other (Please specify) Other Unable to determine Please document in your progress notes and discharge summary in order to capture severity of illness and risk of mortality. Include clinical findings that support your diagnosis. FYI: Press F11 to launch patient chart. Place X here if this finding has no clinical significance, is not applicable or if you are not able to provide any additional documentation. BROOK
[2017-01-07] MEDS: HEPARIN SODIUM,PORCINE 5,000 UNIT/ML 1 ML VIAL SQ SCH ×2 (00:20→08:30)
[2017-01-07 07:49] VITALS: BP 136/84; PULSE 80; RESP 16; TEMP 97.3
[2017-01-07] MEDS: SODIUM CHLORIDE 0.9% 1,000 ML IV SCH (08:30)
[2017-01-07] MEDS: PANTOPRAZOLE 40 MG TABLET PO SCH (08:30)
[2017-01-07] MEDS: NICOTINE 14MG/24HR PATCH TRANSDERM SCH (08:30)
--- NOTE | 2017-01-07 09:43 | PN ---
SUBJECTIVE: 56-year-old white male with rhabdomyolysis, alcoholism. His strength is slowly improving. He is up ambulating. CPKs remain high and remains on IV fluids. He has no neurologic findings. He is in for muscle weakness and elevated CPK levels and dehydration reviewed. Vital signs reviewed. CARDIOVASCULAR: S1, S2. LUNGS: Clear. GI: Soft. HEMATOLOGIC: Negative Homans. MUSCULOSKELETAL: 4 to 5 strength x4. ASSESSMENT: 1. Rhabdomyolysis. 2. Alcoholism. 3. Severe dehydration. 4. Generalized debility. 5. Facial contusions. Continue with current treatment. Possible discharge home in the next 24 to 48 hours depending on his ambulation and how he is doing.
--- NOTE | 2017-01-09 09:03 | CDI ---
In responding to this query, please exercise your independent professional judgment. The [facility] Coding Staff and Clinical Documentation Specialists appreciate your assistance in clarifying documentation, maintaining compliance with coding guidelines, accurately documenting patients condition and capturing severity of illness. The fact that a question is asked does not imply that any particular answer is desired or expected. Communication forms are a method of clarifying documentation and are not made part of the Legal Health Record. Thank you in advance for your clarification. Last Revision, November 2015 Bel Peralta [address] [facility] [place] [address] Documentation Clarification Form Date: 01/04/2017 4:34:00 PM From: Marissa Martinez RN, CDS Admit Date: 01/03/2017 9:33:00 PM Patient Name: Amos Lazo Visit Number: [id number] Discharge Date: 01/07/2017 Dr. Juarez Bob, (Second Request) Altered mental status was documented in the H&P and Consult not on 01/04/17 Patient history/risk factors: Known alcoholism, Clinical Indicators: Significant altered mental status, Rhabdomyolosis w/ contusions forehead altered mental status per H&P, Acute Alcohol intoxication, pt. not responding to questions and reaching for things that are not there per ED note Labs: Serum Alcohol 533, CK [id number] CT Head: no acute process, Treatment: NS @ 750, IVF w/ MVI , In your professional opinion, please clarify the etiology of the altered mental status, if known. Encephalopathy (specify Type and Underlying Medical Illness) Delirium (specify cause): Other condition (please specify) Unable to determine Please document in your progress notes and discharge summary in order to capture severity of illness and risk of mortality. Include clinical findings that support your diagnosis. FYI: Press F11 to launch patient chart. Place X here if this finding has no clinical significance, is not applicable or if you are not able to provide any additional documentation. MTDD
--- NOTE | 2017-01-09 09:11 | CDI ---
In responding to this query, please exercise your independent professional judgment. The [facility] Coding Staff and Clinical Documentation Specialists appreciate your assistance in clarifying documentation, maintaining compliance with coding guidelines, accurately documenting patients condition and capturing severity of illness. The fact that a question is asked does not imply that any particular answer is desired or expected. Communication forms are a method of clarifying documentation and are not made part of the Legal Health Record. Thank you in advance for your clarification. Last Revision, July 2015 Bel Peralta [address] [place] [address] Documentation Clarification Form Date: 01/06/2017 1:17:00 PM From: Marissa Martinez Phone: Admit Date: 01/03/2017 9:33:00 PM Patient Name: Amos Lazo Visit Number: [id number] Discharge Date: 01/07/2017 Dr. Juarez Bob, (Second Request) Patient history/risk factors: patient found lying on floor for prolonged period of time Clinical Indicators: Lab findings: CK [id number], "Rhabdomyolosis secondary to suspected prolonged downtime on the floor" per Pulmonary consult, "Acute Rhabdomyolosis, Acute Alcohol withdrawal, Acute alcohol intoxication, altered mental status, abrasions to face from fall" per H&P Vital Signs: HR 107-127 on admission, HR 132 on 01/04/17, Treatment: NS @750, then 100/hour In your professional opinion, can you please specify the type of Rhabdomyolosis? Traumatic Rhabdomyolosis Rhabdomyolosis-Other (Please specify) Other Unable to determine Please document in your progress notes and discharge summary in order to capture severity of illness and risk of mortality. Include clinical findings that support your diagnosis. FYI: Press F11 to launch patient chart. Place X here if this finding has no clinical significance, is not applicable or if you are not able to provide any additional documentation. BROOK
--- NOTE | 2017-01-13 15:36 | DS ---
DATE OF ADMISSION: 01/03/2017 DATE OF DISCHARGE: 01/07/2017 ADDENDUM TO DISCHARGE SUMMARY: Traumatic rhabdomyolysis.
--- NOTE | 2017-01-13 15:38 | DS ---
DATE OF ADMISSION: 01/03/2017 DATE OF DISCHARGE: 01/07/2017 ADDENDUM TO DISCHARGE DIAGNOSES: Metabolic encephalopathy. Delirium secondary to metabolic encephalopathy and alcohol withdrawal. Chronic alcoholism.
--- NOTE | 2017-01-13 21:50 | DS ---
DATE OF ADMISSION: 01/03/2017 DATE OF DISCHARGE: 01/07/2017 DISCHARGE DIAGNOSES: 1. Traumatic encephalopathy, altered mental status secondary to acute alcohol intoxication. 2. Metabolic encephalopathy rhabdomyolysis secondary to trauma. 3. Alcoholism. 4. Elevated AST secondary to above. 5. Chronic and ongoing nicotine addiction. HOSPITAL COURSE OF EVENTS: The patient was placed on CIWA protocol due to alcohol withdrawals, given IV fluids for multiple days as his rhabdomyolysis was slowly improving. He will follow up with alcohol withdrawal intoxication as an outpatient. His stay was in ICU for a few days and then CPK slowly improved and his range of motion improved to the point that he ( ) alcohol and discharged. He had mild facial abrasions that were healed also on discharge. CK-MB was 4.1 on discharge. No medications were given. He will follow up with alcohol withdrawal, possibly [place].
--- NOTE | 2017-02-07 10:15 | DS ---
DATE OF ADMISSION: 01/03/2017 DATE OF DISCHARGE: 01/07/2017 A 56-year-old admitted with alcohol intoxication. Patient was watched for withdrawals. Patient is willing to quit smoking and alcohol and patient is being discharged today. Patient was evaluated by PT and OT. Patient will be discharged to his sister's place. Patient was seen and examined on the day of discharge. Vitals are stable. PHYSICAL EXAMINATION: GENERAL: The patient is alert and oriented x3, not in any acute distress. Well developed, well nourished. HEENT: Pupils are round and equally reacting to light. EOMI. No scleral icterus. No conjunctival pallor. Normocephalic, atraumatic. No pharyngeal erythema. No thyromegaly. CARDIOVASCULAR: S1 and S2 present. No murmurs, rubs, or gallops. PULMONARY: Chest is clear to auscultation, no wheezing or crackles. ABDOMEN: Soft, nontender, nondistended, normoactive bowel sounds. No palpable organomegaly. MUSCULOSKELETAL: No joint swelling or deformity. EXTREMITIES: No cyanosis, clubbing, or pedal edema. NEUROLOGICAL: Gross neurological examination did not reveal any focal deficits. SKIN: No rashes. Gait instability from chronic alcohol use. ASSESSMENT AND PLAN: 1. Acute alcohol intoxication. 2. Alcohol withdrawal. 3. Depression without any suicidal and homicidal ideations. Patient was given prescription for Librium by Dr. Serrano, which will be continued and thiamine prescriptions will be provided. Patient will benefit from antidepressants, which I will let Dr. River decide about the antidepressant medications and patient will follow with Dr. River in February 10 at 2:00 p.m. Activity as tolerated. Regular diet. I spent greater than 35 minutes in total discharge process.
== END 2017-01-07 11:09 | disposition left against medical advice (07) | DRG 564 ==
LOC: EC 19:16 → 6ICU 21:33 → 4MS4W 01-04 13:44
PROVIDERS: ADMIT Family Medicine; ATTEND Family Medicine
PROC: HZ2ZZZZ Detoxification Services for Substance Abuse Treatment (ICD-10-PCS; principal; 2017-01-03)
DX: T79.6XXA Traumatic ischemia of muscle, initial encounter (principal); G93.41 Metabolic encephalopathy; R64 Cachexia; F05 Delirium due to known physiological condition; F10.239 Alcohol dependence with withdrawal, unspecified; Z78.1 Physical restraint status; F10.229 Alcohol dependence with intoxication, unspecified; R74.0 Nonspecific elevation of levels of transaminase and lactic acid dehydrogenase [LDH]; E86.0 Dehydration; S60.00XA Contusion of unspecified finger without damage to nail, initial encounter; S00.83XA Contusion of other part of head, initial encounter; S00.33XA Contusion of nose, initial encounter; I67.9 Cerebrovascular disease, unspecified; R15.9 Full incontinence of feces; R32 Unspecified urinary incontinence; R00.0 Tachycardia, unspecified; F17.200 Nicotine dependence, unspecified, uncomplicated; Z90.49 Acquired absence of other specified parts of digestive tract; Z87.11 Personal history of peptic ulcer disease; Z71.41 Alcohol abuse counseling and surveillance of alcoholic; Z71.6 Tobacco abuse counseling; Z68.24 Body mass index [BMI] 24.0-24.9, adult; Z53.21 Procedure and treatment not carried out due to patient leaving prior to being seen by health care provider; Z87.828 Personal history of other (healed) physical injury and trauma; W10.8XXA Fall (on) (from) other stairs and steps, initial encounter; Y93.01 Activity, walking, marching and hiking; Y92.832 Beach as the place of occurrence of the external cause; Y90.8 Blood alcohol level of 240 mg/100 ml or more
CPT/HCPCS: 36415; 70450; 71010; 72125; 80053; 80306; 80320; 81001; 82140; 82150; 82550; 82553; 83615; 83690; 83735; 84100; 84484; 85025; 85610; 85730; 87040; 87086; 93005; 96365; 96366; 96375; 96376; 99285

== ENCOUNTER 2017-01-12 17:54 | Inpatient (IN) | payer OTHER ==
[2017-01-12] MEDS ORDERED: SODIUM CHLORIDE 0.9% 1,000 ML IV STA (18:09)
[2017-01-12] MEDS ORDERED: SODIUM CHLORIDE 0.9% 1,000 ML with MVI, ADULT NO.4 WITH VIT K 10 ML, THIAMINE 100 MG, F... IV ONE ×4 (18:12)
--- NOTE | 2017-01-12 18:19 | ED ---
General Adult HPI - General Source: patient, RN notes reviewed Mode of arrival: EMS Limitations: no limitations <Harpreet Liao - Last Filed: 01/12/17 19:06> <Nabeel Nolen - Last Filed: 01/12/17 20:05> - General Chief complaint: Alcohol Stated complaint: ETOH Time Seen by Provider: 01/12/17 18:00 - History of Present Illness Initial comments: This is a 56-year-old male who presents to the emergency room after the landlord found him unresponsive on the ground and his apartment patient was incontinent of urine patient is alert but not oriented at all. Patient does not answer any questions. We have no further information other than there was a lot of empty liquor bottles lying around the apartment. (Harpreet Liao) - Related Data Home Medications Medication Instructions Recorded Confirmed No Known Home Medications [No 11/19/16 01/12/17 Known Home Medications] Allergies Allergy/AdvReac Type Severity Reaction Status Date / Time No Known Allergies Allergy Verified 01/12/17 18:19 Review of Systems ROS Other: All systems not noted in ROS Statement are negative. <Harpreet Liao - Last Filed: 01/12/17 19:06> ROS Other: All systems not noted in ROS Statement are negative. <Nabeel Nolen - Last Filed: 01/12/17 20:05> ROS Statement: Those systems with pertinent positive or pertinent negative responses have been documented in the HPI. Past Medical History Additional Past Medical History / Comment(s): ETOH abuse, pt states he cut his left pinky with a table saw. pt poor historian. History of Any Multi-Drug Resistant Organisms: None Reported Past Surgical History: Bowel Resection Additional Past Surgical History / Comment(s): perforated bowel surgery 2004, per pt "1979 bleeding bowel, stomach ulcer" pt poor historian. Past Anesthesia/Blood Transfusion Reactions: No Reported Reaction Past Psychological History: Unable to Obtain Smoking Status: Current every day smoker Past Alcohol Use History: Abuse, Heavy Past Drug Use History: Unable to Obtain <Harpreet Liao - Last Filed: 01/12/17 19:06> General Exam Limitations: no limitations <Harpreet Liao - Last Filed: 01/12/17 19:06> <Nabeel Nolen - Last Filed: 05/04/17 20:05> - General Exam Comments Initial Comments: GENERAL: Patient is well-developed and well-nourished. Patient is nontoxic and well- hydrated and does not understand any questions weakness nor does he respond to any questions. Patient is alert but not oriented at all ENT: Neck is soft and supple. No significant lymphadenopathy is noted. Oropharynx is clear. Moist mucous membranes. Neck has full range of motion without eliciting any pain. EYES: The sclera were anicteric and conjunctiva were pink and moist. Extraocular movements were intact and pupils were equal round and reactive to light. Eyelids were unremarkable. PULMONARY: Unlabored respirations. Good breath sounds bilaterally. No audible rales rhonchi or wheezing was noted. CARDIOVASCULAR: There is a regular rate and rhythm without any murmurs gallops or rubs. ABDOMEN: Soft and nontender with normal bowel sounds. No palpable organomegaly was noted. There is no palpable pulsatile mass. SKIN: Skin is clear with no lesions or rashes and otherwise unremarkable. NEUROLOGIC: Patient is alert and oriented 0. Cranial nerves II through XII are grossly intact. Motor is intact. MUSCULOSKELETAL: Normal extremities with adequate strength and full range of motion. No lower extremity swelling or edema. No calf tenderness. PSYCHIATRIC: Unable to assess (Harpreet Liao) Medical Decision Making - Lab Data Result diagrams: 01/12/17 18:16 01/12/17 18:16 <Harpreet Liao - Last Filed: 01/12/17 19:06> - Lab Data Result diagrams: 01/12/17 18:16 01/12/17 18:16 <Nabeel Nolen - Last Filed: 01/12/17 20:05> - Medical Decision Making EKG shows normal sinus rhythm at 89 bpm MO interval is 146 QRS is 78 QT interval 358 QTC is 435. Patient's EKG shows no ST segment elevation or depression or T wave abnormalities are noted. Dr. Tyson will be taking over the care of this patient 7 PM (Harpreet Liao) Receive this case as a sign out pending the result of the computed tomography scan and labs. These are back and patient be admitted given that the alcohol level is extremely elevated. The patient's GCS is 12. Protecting airway and knots looking like impending airway compromise. Case discussed with Dr. Liu as patient appears to be city call, and he will admit. [facility] protocol ( Nabeel Nolen) - Lab Data Lab Results 01/12/17 01/12/17 01/12/17 Range/Units 18:16 18:16 18:16 WBC 3.8 (3.8-10.6) k/uL RBC 4.79 (4.30-5.90) m/uL Hgb 16.0 (13.0-17.5) gm/dL Hct 47.9 (39.0-53.0) % MCV 99.9 (80.0-100.0) fL MCH 33.4 (25.0-35.0) pg MCHC 33.5 (31.0-37.0) g/dL RDW 13.5 (11.5-15.5) % Plt Count 181 (150-450) k/uL Neutrophils % 64 % Lymphocytes % 26 % Monocytes % 6 % Eosinophils % 1 % Basophils % 1 % Neutrophils # 2.4 (1.3-7.7) k/uL Lymphocytes # 1.0 (1.0-4.8) k/uL Monocytes # 0.2 (0-1.0) k/uL Eosinophils # 0.0 (0-0.7) k/uL Basophils # 0.0 (0-0.2) k/uL PT 10.5 (9.0-12.0) sec INR 1.0 (<1.1) Sodium 148 H (137-145) mmol/L Potassium 4.4 (3.5-5.1) mmol/L Chloride 107 (98-107) mmol/L Carbon Dioxide 24 (22-30) mmol/L Anion Gap 17 mmol/L BUN 9 (9-20) mg/dL Creatinine 0.68 (0.66-1.25) mg/dL Est GFR (MDRD) Af Amer >60 (>60 ml/min/1.73 sqM) Est GFR (MDRD) Non-Af >60 (>60 ml/min/1.73 sqM) Glucose 86 (74-99) mg/dL POC Glucose (mg/dL) (75-99) mg/dL POC Glu Transportation Specialist ID Calcium 9.1 (8.4-10.2) mg/dL Magnesium 2.0 (1.6-2.3) mg/dL Total Bilirubin 0.8 (0.2-1.3) mg/dL AST 89 H (17-59) U/L ALT 110 H (21-72) U/L Alkaline Phosphatase 105 (38-126) U/L Ammonia (<30) umol/L Total Creatine Kinase (55-170) U/L CK-MB (CK-2) (0.0-2.4) ng/mL CK-MB (CK-2) Rel Index Troponin I (0.000-0.034) ng/mL Total Protein 8.1 (6.3-8.2) g/dL Albumin 4.7 (3.5-5.0) g/dL Amylase 72 (30-110) U/L Lipase 116 (23-300) U/L Urine Opiates Screen (NotDetected) Ur Oxycodone Screen (NotDetected) Urine Methadone Screen (NotDetected) Ur Propoxyphene Screen (NotDetected) Ur Barbiturates Screen (NotDetected) U Tricyclic Antidepress (NotDetected) Ur Phencyclidine Scrn (NotDetected) Ur Amphetamines Screen (NotDetected) U Methamphetamines Scrn (NotDetected) U Benzodiazepines Scrn (NotDetected) Urine Cocaine Screen (NotDetected) U Marijuana (THC) Screen (NotDetected) Serum Alcohol 602 mg/dL 01/12/17 01/12/17 01/12/17 Range/Units 18:16 18:16 18:19 WBC (3.8-10.6) k/uL RBC (4.30-5.90) m/uL Hgb (13.0-17.5) gm/dL Hct (39.0-53.0) % MCV (80.0-100.0) fL MCH (25.0-35.0) pg MCHC (31.0-37.0) g/dL RDW (11.5-15.5) % Plt Count (150-450) k/uL Neutrophils % % Lymphocytes % % Monocytes % % Eosinophils % % Basophils % % Neutrophils # (1.3-7.7) k/uL Lymphocytes # (1.0-4.8) k/uL Monocytes # (0-1.0) k/uL Eosinophils # (0-0.7) k/uL Basophils # (0-0.2) k/uL PT (9.0-12.0) sec INR (<1.1) Sodium (137-145) mmol/L Potassium (3.5-5.1) mmol/L Chloride (98-107) mmol/L Carbon Dioxide (22-30) mmol/L Anion Gap mmol/L BUN (9-20) mg/dL Creatinine (0.66-1.25) mg/dL Est GFR (MDRD) Af Amer (>60 ml/min/1.73 sqM) Est GFR (MDRD) Non-Af (>60 ml/min/1.73 sqM) Glucose (74-99) mg/dL POC Glucose (mg/dL) 107 H (75-99) mg/dL POC Glu Transportation Specialist ID Alie Lugo Calcium (8.4-10.2) mg/dL Magnesium (1.6-2.3) mg/dL Total Bilirubin (0.2-1.3) mg/dL AST (17-59) U/L ALT (21-72) U/L Alkaline Phosphatase (38-126) U/L Ammonia <9 (<30) umol/L Total Creatine Kinase 312 H (55-170) U/L CK-MB (CK-2) 3.4 H* (0.0-2.4) ng/mL CK-MB (CK-2) Rel Index 1.1 Troponin I <0.012 (0.000-0.034) ng/mL Total Protein (6.3-8.2) g/dL Albumin (3.5-5.0) g/dL Amylase (30-110) U/L Lipase (23-300) U/L Urine Opiates Screen (NotDetected) Ur Oxycodone Screen (NotDetected) Urine Methadone Screen (NotDetected) Ur Propoxyphene Screen (NotDetected) Ur Barbiturates Screen (NotDetected) U Tricyclic Antidepress (NotDetected) Ur Phencyclidine Scrn (NotDetected) Ur Amphetamines Screen (NotDetected) U Methamphetamines Scrn (NotDetected) U Benzodiazepines Scrn (NotDetected) Urine Cocaine Screen (NotDetected) U Marijuana (THC) Screen (NotDetected) Serum Alcohol mg/dL 01/12/17 Range/Units 18:54 WBC (3.8-10.6) k/uL RBC (4.30-5.90) m/uL Hgb (13.0-17.5) gm/dL Hct (39.0-53.0) % MCV (80.0-100.0) fL MCH (25.0-35.0) pg MCHC (31.0-37.0) g/dL RDW (11.5-15.5) % Plt Count (150-450) k/uL Neutrophils % % Lymphocytes % % Monocytes % % Eosinophils % % Basophils % % Neutrophils # (1.3-7.7) k/uL Lymphocytes # (1.0-4.8) k/uL Monocytes # (0-1.0) k/uL Eosinophils # (0-0.7) k/uL Basophils # (0-0.2) k/uL PT (9.0-12.0) sec INR (<1.1) Sodium (137-145) mmol/L Potassium (3.5-5.1) mmol/L Chloride (98-107) mmol/L Carbon Dioxide (22-30) mmol/L Anion Gap mmol/L BUN (9-20) mg/dL Creatinine (0.66-1.25) mg/dL Est GFR (MDRD) Af Amer (>60 ml/min/1.73 sqM) Est GFR (MDRD) Non-Af (>60 ml/min/1.73 sqM) Glucose (74-99) mg/dL POC Glucose (mg/dL) (75-99) mg/dL POC Glu Transportation Specialist ID Calcium (8.4-10.2) mg/dL Magnesium (1.6-2.3) mg/dL Total Bilirubin (0.2-1.3) mg/dL AST (17-59) U/L ALT (21-72) U/L Alkaline Phosphatase (38-126) U/L Ammonia (<30) umol/L Total Creatine Kinase (55-170) U/L CK-MB (CK-2) (0.0-2.4) ng/mL CK-MB (CK-2) Rel Index Troponin I (0.000-0.034) ng/mL Total Protein (6.3-8.2) g/dL Albumin (3.5-5.0) g/dL Amylase (30-110) U/L Lipase (23-300) U/L Urine Opiates Screen Not Detected (NotDetected) Ur Oxycodone Screen Not Detected (NotDetected) Urine Methadone Screen Not Detected (NotDetected) Ur Propoxyphene Screen Not Detected (NotDetected) Ur Barbiturates Screen Not Detected (NotDetected) U Tricyclic Antidepress Not Detected (NotDetected) Ur Phencyclidine Scrn Not Detected (NotDetected) Ur Amphetamines Screen Not Detected (NotDetected) U Methamphetamines Scrn Not Detected (NotDetected) U Benzodiazepines Scrn Not Detected (NotDetected) Urine Cocaine Screen Not Detected (NotDetected) U Marijuana (THC) Screen Not Detected (NotDetected) Serum Alcohol mg/dL Disposition <Harpreet Liao - Last Filed: 01/12/17 19:06> <Nabeel Nolen - Last Filed: 01/12/17 20:05> Clinical Impression: Alcohol intoxication delirium Disposition: ADMITTED IP TO THIS [facility] Condition: Serious
[2017-01-12 18:24] LABS: Glucose,Whole Blood 107 mg/dL (75-99)
[2017-01-12 18:31] LABS: Basophils % (A) 1 %; CH 34.4; CHCM 34.6; Eosinophils % (A) 1 %; HCT 47.9 % (39.0-53.0); HDW 2.27; Luc # (Auto) 0.11; Luc % (Auto) 3; Lymphocytes % (A) 26 %; MCH 33.4 pg (25.0-35.0); MCHC 33.5 g/dL (31.0-37.0); MCV 99.9 fL (80.0-100.0); Mean Platelet Volume 7.1; Monocytes # (A) 0.2 k/uL (0-1.0); Monocytes % (A) 6 %; Neutrophils # (A) 2.4 k/uL (1.3-7.7); Neutrophils % (A) 64 %; RBC 4.79 m/uL (4.30-5.90); RDW 13.5 % (11.5-15.5); WBC 3.8 k/uL (3.8-10.6); WBC (Perox) 3.81
[2017-01-12 18:36] LABS: Prothrombin Time 10.5 sec (9.0-12.0)
[2017-01-12] MEDS ORDERED: LORazepam 2 MG/ML SYRINGE IV STA (18:39)
[2017-01-12 18:43] LABS: ALT 110 U/L (21-72); AST 89 U/L (17-59); Alkaline Phosphatase 105 U/L (38-126); Amylase 72 U/L (30-110); Anion Gap 17 mmol/L; Blood Urea Nitrogen 9 mg/dL (9-20); Calcium 9.1 mg/dL (8.4-10.2); Carbon Dioxide 24 mmol/L (22-30); Chloride 107 mmol/L (98-107); Glucose 86 mg/dL (74-99); Non-African American GFR(MDRD) >60 (>60 ml/min/1.73 sqM); Potassium 4.4 mmol/L (3.5-5.1); Sodium 148 mmol/L (137-145); Total Bilirubin 0.8 mg/dL (0.2-1.3); Total Protein 8.1 g/dL (6.3-8.2)
[2017-01-12 18:45] LABS: Creatine Kinase 312 U/L (55-170)
[2017-01-12 18:57] LABS: Troponin I <0.012 ng/mL (0.000-0.034)
[2017-01-12 18:59] LABS: Creatine Kinase MB 3.4 ng/mL (0.0-2.4)
[2017-01-12 19:07] LABS: Alcohol 602 mg/dL
--- NOTE | 2017-01-12 19:20 | CT ---
EXAMINATION TYPE: CT brain wo con DATE OF EXAM: 01/12/2017 7:15 PM COMPARISON: NONE HISTORY: Patient poor historian CT DLP: 1253.[address] of the brain was performed. The ventricles, basal cisterns and sulci overlying the cerebral convexities demonstrate mild enlargem ent. There is no evidence for intracranial hemorrhage or sulcal effacement. There is decreased attenuation about the periventricular white matter and deep white matter of both c erebral hemispheres, compatible with chronic small vessel ischemia. Differential diagnosis does inclu de demyelination. No mass effects are seen.No midline shift. Osseous calvarium is intact. If symptoms persist consider MRI. IMPRESSION: 1. Age related atrophic and chronic small vessel ischemic change without acute intracranial process s een at this time.
[2017-01-12] MEDS ORDERED: NALOXONE 0.4 MG/ML 1 ML VIAL IV PRN (19:33)
[2017-01-12] MEDS ORDERED: THIAMINE 100 MG/ML 2 ML VIAL IM STA (19:38)
--- NOTE | 2017-01-12 19:46 | XR ---
EXAMINATION TYPE: XR chest 1V portable DATE OF EXAM: 01/12/2017 7:38 PM HISTORY: Shortness of breath. COMPARISON: 01/03/2017 TECHNIQUE: Single view of the chest is submitted. FINDINGS: Demonstrated are scattered senescent parenchymal change. There is no evidence for focal infiltrate. The heart is stable. Hilar and mediastinal structures are within normal limits. Degenerative changes are seen of the dorsal spine. IMPRESSION: 1. Chronic changes without evidence for acute pulmonary disease.
[2017-01-12 21:10] LABS: Glucose,Whole Blood 93 mg/dL (75-99)
[2017-01-12 21:31] LABS: Basophils % (A) 2 %; CH 34.4; CHCM 34.4; Eosinophils % (A) 1 %; HCT 41.9 % (39.0-53.0); HDW 2.23; HGB 13.8 gm/dL (13.0-17.5); Luc # (Auto) 0.04; Luc % (Auto) 2; Lymphocytes # (A) 0.8 k/uL (1.0-4.8); Lymphocytes % (A) 31 %; MCH 33.1 pg (25.0-35.0); MCHC 32.9 g/dL (31.0-37.0); MCV 100.5 fL (80.0-100.0); Monocytes # (A) 0.1 k/uL (0-1.0); Monocytes % (A) 5 %; Neutrophils # (A) 1.6 k/uL (1.3-7.7); Neutrophils % (A) 60 %; RBC 4.16 m/uL (4.30-5.90); RDW 13.5 % (11.5-15.5); WBC 2.7 k/uL (3.8-10.6); WBC (Perox) 2.74
[2017-01-12 21:36] LABS: Ionized Calcium 4.6 mg/dL (4.5-5.3)
[2017-01-12 21:57] LABS: ALT 97 U/L (21-72); AST 78 U/L (17-59); Alkaline Phosphatase 85 U/L (38-126); Anion Gap 16 mmol/L; Blood Urea Nitrogen 9 mg/dL (9-20); Calcium 8.3 mg/dL (8.4-10.2); Carbon Dioxide 22 mmol/L (22-30); Chloride 108 mmol/L (98-107); Glucose 85 mg/dL (74-99); Magnesium 1.8 mg/dL (1.6-2.3); Non-African American GFR(MDRD) >60 (>60 ml/min/1.73 sqM); Phosphorous 3.4 mg/dL (2.5-4.5); Potassium 4.2 mmol/L (3.5-5.1); Sodium 146 mmol/L (137-145); Total Bilirubin 0.8 mg/dL (0.2-1.3)
[2017-01-12 22:09] VITALS: BMI 21.1
[2017-01-12 22:10] LABS: Alcohol 461 mg/dL
[2017-01-12] MEDS: FAMOTIDINE 20 MG TAB PO SCH (22:13)
[2017-01-13 06:42] LABS: Basophils % (A) 1 %; CH 33.9; Eosinophils % (A) 1 %; HCT 39.1 % (39.0-53.0); HDW 2.22; Luc # (Auto) 0.05; Luc % (Auto) 2; Lymphocytes # (A) 0.6 k/uL (1.0-4.8); Lymphocytes % (A) 25 %; MCH 33.4 pg (25.0-35.0); MCHC 33.3 g/dL (31.0-37.0); MCV 100.3 fL (80.0-100.0); Mean Platelet Volume 7.1; Monocytes # (A) 0.2 k/uL (0-1.0); Monocytes % (A) 7 %; Neutrophils # (A) 1.4 k/uL (1.3-7.7); Neutrophils % (A) 64 %; RDW 13.6 % (11.5-15.5); WBC 2.2 k/uL (3.8-10.6); WBC (Perox) 2.21
[2017-01-13 06:59] LABS: ALT 89 U/L (21-72); AST 88 U/L (17-59); Alcohol 259 mg/dL; Alkaline Phosphatase 66 U/L (38-126); Anion Gap 14 mmol/L; Blood Urea Nitrogen 11 mg/dL (9-20); Calcium 8.4 mg/dL (8.4-10.2); Carbon Dioxide 23 mmol/L (22-30); Chloride 107 mmol/L (98-107); Glucose 70 mg/dL (74-99); Magnesium 1.7 mg/dL (1.6-2.3); Non-African American GFR(MDRD) >60 (>60 ml/min/1.73 sqM); Phosphorous 3.8 mg/dL (2.5-4.5); Sodium 144 mmol/L (137-145); Total Bilirubin 0.9 mg/dL (0.2-1.3); Total Protein 6.8 g/dL (6.3-8.2)
[2017-01-13 07:02] LABS: Potassium 4.1 mmol/L (3.5-5.1)
[2017-01-13] MEDS: SODIUM CHLORIDE 0.9% 1,000 ML IV SCH (09:45)
[2017-01-13] MEDS: LORazepam 2 MG/ML SYRINGE IV PRN ×4 (09:48→22:53)
[2017-01-13] MEDS: FAMOTIDINE 20 MG TAB PO SCH ×2 (09:54→22:46)
--- NOTE | 2017-01-13 10:48 | P.CN ---
Psychiatric Consult - . Consult date: 01/13/17 Consult:: 01/13/17 10:27 DATE OF SERVICE: 01/13/2017 IDENTIFYING DATA: This patient is a 56-year-old male who was admitted to ICU from the emergency room HISTORY OF PRESENT ILLNESS: This patient is a 56-year-old male who was admitted to ICU from the emergency room after the landlord found him unresponsive on the ground in his apartment. Patient was incontinent of urine, he was alert but not oriented, unable to provide information in the ER. BAL 602 Pt was found lying in bed, answered to his name being called. Reports he does not know why this happended. Says he will typically drink 1/5 of liquor on daily basis. States he began drinking heavy after his divorce in 2004. Pt identifies etoh as a problem and thinks he must cut down. PAST PSYCHIATRIC HISTORY: [Denies]. PAST MEDICAL HISTORY: [Denies any medical problems]. ALLERGIES: [No known drug allergies]. CHEMICAL DEPENDENCY HISTORY: [Patient reports he has been drinking for many years, but that his drinking increased after he and his in 2004. Patient denies other drug abuse. Patient denies ever being treated in a rehab setting. Patient reports that he did try AA in [place] but when he asked for a sponsor he did not get one so he quit. He has made several attempts at stopping alcohol but will get frustrated with one thing or another and start up again. ]. FAMILY PSYCHIATRIC HISTORY: Patient reports that his grandfather his father and his son all have problems with alcohol. Patient states that he believes his sister might have schizophrenia, but he is not sure about treatment. Patient denies any family suicidal. FAMILY CHEMICAL DEPENDENCY HISTORY: Reports alcoholism runs in his father's side of the family his grandfather father and his son all have problems or had problems with drinking too much alcohol.. LEGAL HISTORY: Denies any pending issues, denies DUI.. SOCIAL HISTORY: [Patient reports that he has worked for 35 years at an [employer] shop. 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 He is and lives by himself]. MENTAL STATUS EXAM: [DATE OF SERVICE: [Patient alert and oriented 3, good eye contact, fair groomed in hospital attire Speech normal volume, rate and production. Coherent, logical and goal directed thought process. No JULI, no FOI. [No TB/TW/ TI] Denied auditory and visual hallucinations. Denied paranoid ideation, delusions or IOR. Memory [grossly intact] Cognition[average intellignec] Mood [euthymic], affect and full range normal intensity, congruent with mood. Denies suicidal ideation, denies homicidal ideation. Insight [partial]; Judgement intact for treatment purposes IMPRESSIONS: 56 year old with long history of etoh use, severe, recently found by landlord unresponsive, brought to ER and was alert but unable to provide any information. Today he was awake, no problems of cognition, making jokes, no evidence of depression/anxiety/psychosis. He has partial insight that etoh is a problem for him with increase intake for past 10-12 years. Is not ready to stop but might cut back. not interested in any treatment modality, believes it makes him crave drinking more. He has elevated lfts as expected with the amount of etoh he consumes. His BAL this morning (6AM) was 259 Patient is stable from psychiatric point, ie no danger to self or others. No psychosis. PLAN: [Pt was willing to reconsider trying AA and again near his home. He had been involved once before, and will seek out when he is discharged. Thank you for this consult.
[2017-01-13] MEDS: THIAMINE 100 MG TAB PO SCH ×2 (12:46→17:03)
[2017-01-13] MEDS ORDERED: Magnesium Replacement Protocol 1 EACH MISC MISCELLANE PRN (13:14)
[2017-01-13] MEDS: MAGNESIUM SULFATE-D5W PMX 1 GM in DEXTROSE/WATER 1 100ML.BAG IVPB SCH ×2 (13:42→14:34)
--- NOTE | 2017-01-13 14:07 | HP ---
DATE OF ADMISSION: CHIEF COMPLAINT: Acute alcohol intoxication. HISTORY OF PRESENT ILLNESS: This is the first admission for this 56-year-old white male heavy drinker. He drinks about fifth a day. He has no other medical problems that he is aware of. REVIEW OF SYSTEMS: He has had no blackouts, seizures, difficulty with vision or the hearing, chest pain, cough, hemoptysis, hypertension, palpitations, orthopnea, PND, murmurs, rheumatic fever, etc. He has had no history of varices, ulcer disease, nausea, vomiting, hematemesis, melena, hematochezia, jaundice, etc. He has had no hematuria, frequency, renal disease, etc. He has had no diabetes. Past medical history, family history, and personal and social histories are unremarkable otherwise noncontributory. He is not allergic to any medication. He has had no surgery. He does not take any medications and he smokes about a pack of cigarettes a day. PHYSICAL EXAMINATION: Blood pressure 141/90 with a pulse of 93, respirations 35 and he is afebrile. GENERAL: He appeared to be in no acute distress. Skin color is normal. Skin is warm and dry. Lymph nodes are not enlarged. Head, ears, eyes, nose, mouth, and throat were normal. Neck veins not distended. The carotids are normal. Chest is clear. Cardiac exam demonstrates sinus rhythm with no murmurs or extra sounds. ABDOMEN: Soft, nontender. EXTREMITIES: Normal. He was not tremulous. IMPRESSION: 1. Acute alcohol intoxication. 2. Impending delirium tremens. 3. Chronic obstructive pulmonary disease. PLAN: 1. Bed rest. 2. IV fluids. 3. [facility] protocol.
--- NOTE | 2017-01-13 14:09 | PN ---
DATE OF SERVICE: 01/13/2017 CHIEF COMPLAINT: Acute alcohol intoxication. HISTORY OF PRESENT ILLNESS: This gentleman is doing well. He has no signs of delirium tremens yet. PHYSICAL EXAM: Chest is clear. Cardiac exam is normal. ABDOMEN: Soft, nontender. IMPRESSION: 1. Acute alcohol intoxication. 2. Chronic obstructive pulmonary disease. PLAN: 1. Increase activity and diet. 2. Watch for DTs.
[2017-01-14] MEDS: SODIUM CHLORIDE 0.9% 1,000 ML IV SCH (05:35)
[2017-01-14 07:44] LABS: Basophils % (A) 1 %; CH 34.5; CHCM 35.4; Eosinophils % (A) 1 %; HCT 38.7 % (39.0-53.0); HDW 2.29; HGB 13.5 gm/dL (13.0-17.5); Luc # (Auto) 0.05; Luc % (Auto) 2; Lymphocytes # (A) 0.3 k/uL (1.0-4.8); Lymphocytes % (A) 14 %; MCHC 34.9 g/dL (31.0-37.0); MCV 97.7 fL (80.0-100.0); Monocytes # (A) 0.1 k/uL (0-1.0); Monocytes % (A) 4 %; Neutrophils # (A) 1.8 k/uL (1.3-7.7); Neutrophils % (A) 78 %; RBC 3.97 m/uL (4.30-5.90); RDW 13.2 % (11.5-15.5); WBC 2.3 k/uL (3.8-10.6); WBC (Perox) 2.43
[2017-01-14] MEDS: THIAMINE 100 MG TAB PO SCH ×2 (07:49→17:56)
[2017-01-14] MEDS: LORazepam 2 MG/ML SYRINGE IV PRN ×5 (07:50→20:44)
[2017-01-14 08:06] LABS: ALT 87 U/L (21-72); AST 76 U/L (17-59); Alkaline Phosphatase 85 U/L (38-126); Anion Gap 9 mmol/L; Blood Urea Nitrogen 7 mg/dL (9-20); Calcium 9.2 mg/dL (8.4-10.2); Carbon Dioxide 23 mmol/L (22-30); Chloride 96 mmol/L (98-107); Glucose 91 mg/dL (74-99); Magnesium 1.7 mg/dL (1.6-2.3); Non-African American GFR(MDRD) >60 (>60 ml/min/1.73 sqM); Phosphorous 2.7 mg/dL (2.5-4.5); Potassium 3.9 mmol/L (3.5-5.1); Sodium 128 mmol/L (137-145); Total Bilirubin 1.2 mg/dL (0.2-1.3)
[2017-01-14] MEDS: FAMOTIDINE 20 MG TAB PO SCH ×2 (08:45→21:59)
--- NOTE | 2017-01-14 13:14 | PN ---
CHIEF COMPLAINT: Acute alcohol intoxication. HISTORY OF PRESENT ILLNESS: This gentleman is awake and alert and does not seem to be in DTs. PHYSICAL EXAM: Chest is clear. Cardiac exam is normal. ABDOMEN: Soft, nontender. He has abrasions on his left elbow and his nose. IMPRESSION: 1. Acute alcohol intoxication. 2. Alcoholism. 3. Abrasions of the left arm and nose. PLAN: Progress activity. He can probably go home soon unless he goes into DTs.
[2017-01-15 08:08] LABS: Basophils % (A) 1 %; CH 34.9; CHCM 36.2; Eosinophils % (A) 1 %; HCT 42.6 % (39.0-53.0); HDW 2.42; HGB 14.8 gm/dL (13.0-17.5); Luc % (Auto) 4; Lymphocytes # (A) 0.5 k/uL (1.0-4.8); Lymphocytes % (A) 20 %; MCH 33.7 pg (25.0-35.0); MCHC 34.8 g/dL (31.0-37.0); MCV 96.9 fL (80.0-100.0); Mean Platelet Volume 8.3; Monocytes # (A) 0.1 k/uL (0-1.0); Monocytes % (A) 5 %; Neutrophils # (A) 1.8 k/uL (1.3-7.7); Neutrophils % (A) 70 %; RBC 4.39 m/uL (4.30-5.90); WBC 2.5 k/uL (3.8-10.6); WBC (Perox) 2.53
[2017-01-15 08:29] LABS: ALT 75 U/L (21-72); AST 63 U/L (17-59); Alkaline Phosphatase 77 U/L (38-126); Anion Gap 11 mmol/L; Blood Urea Nitrogen 9 mg/dL (9-20); Calcium 9.7 mg/dL (8.4-10.2); Carbon Dioxide 23 mmol/L (22-30); Chloride 99 mmol/L (98-107); Glucose 94 mg/dL (74-99); Magnesium 1.9 mg/dL (1.6-2.3); Non-African American GFR(MDRD) >60 (>60 ml/min/1.73 sqM); Phosphorous 3.9 mg/dL (2.5-4.5); Potassium 3.8 mmol/L (3.5-5.1); Sodium 133 mmol/L (137-145); Total Bilirubin 0.9 mg/dL (0.2-1.3); Total Protein 7.2 g/dL (6.3-8.2)
[2017-01-15] MEDS: THIAMINE 100 MG TAB PO SCH ×2 (09:08→15:29)
[2017-01-15] MEDS: LORazepam 2 MG/ML SYRINGE IV PRN ×2 (09:08→15:28)
[2017-01-15] MEDS: FAMOTIDINE 20 MG TAB PO SCH ×2 (09:08→21:31)
--- NOTE | 2017-01-15 20:31 | PN ---
DATE OF SERVICE: 01/15/2017 CHIEF COMPLAINT: Acute alcohol intoxication and alcoholism. HISTORY OF PRESENT ILLNESS: The gentleman has gotten more confused and is going into DTs. PHYSICAL EXAMINATION: CHEST: Clear. CARDIAC: Normal. ABDOMEN: Soft, nontender. IMPRESSION: 1. Delirium tremens. 2. Alcoholism. 3. Chronic obstructive pulmonary disease. PLAN: Continue to monitor.
[2017-01-15 23:50] VITALS: PULSE 110; RESP 16
[2017-01-16] MEDS: FAMOTIDINE 20 MG TAB PO SCH (08:17)
[2017-01-16 08:51] VITALS: BP 92/67; TEMP 97.1
--- NOTE | 2017-01-16 09:51 | P.CN ---
Psychiatric Consult - . Consult date: 01/16/17 Consult:: CC: " I'm ok " History of Present Illness: Patient was admitted to the hospital after being found by his landlord nonresponsive, had an alcohol level of 602. Patient was evaluated last week on Monday he still had a blood alcohol level of 259, but was alert and oriented 3, cooperative, pleasant. Review of chart shows that patient has been having some periods of confusion, leading his medical physician to believe that he is going into DTs. Patient was able to give his name, location, setting, and almost the date. He gave 01/25/2017. Labs: AST 63 ALT 75 VS P-110 Mental Status Examination: Patient alert and oriented 3, good eye contact, poorly groomed in hospital attire. Speech normal volume, rate and production. Coherent, logical and goal directed thought process. No JULI, no FOI. No TB/TW/ TI Denied auditory and visual hallucinations. Denied paranoid ideation, delusions or IOR. Memory grossly intact Cognitionaverage Mood neutral, affect full range, congruent with mood. Denies suicidal ideation, denies homicidal ideation. Insight limited; Judgement grossly intact for treatment purposes. Assessment: At present pt is not confused, but this can fluctuate. His pulse rater remains elevated. His lfts are slowing coming down but remain elevated. Continue to cover with ativan. If agitation consider using low dose quetiapine 25mg q8 prn agitation Plan: Will continue to follow along with you.
--- NOTE | 2017-01-16 10:40 | P.DS ---
Providers Date of admission: 01/12/17 19:34 Expected date of discharge: 01/16/17 Attending physician: Enoch Flores Primary care physician: Stated None Hospital Course: 56-year-old presented to the emergency room via the EMS system after the [facility] apartment found him unresponsive on the ground. At his apartment patient was incontinent a urine but alert. Patient was noted to have a lot of empty liquor bottles around the department. Patient states he drinks a fifth of liquor daily. Patient was admitted and to the services of the attending. Was treated for acute alcohol intoxication ciwa protocol was initiated using Ativan for impending DTs psychiatric consultation was requested. Patient was felt not to be a candidate for admission to the mental health unit on the day of discharge patient was stable was felt to be appropriate to be discharged Impression discharge diagnoses Present on admission acute alcohol intoxication Chronic alcoholism daily consumption 1/5 of liquor daily Present on admission mild thrombocytopenia suspect alcohol related Pancytopenia present on admission suspect alcohol related current every day smoker 1 pack daily greater than a 40 year history with probable COPD not diagnosed The above dictated assessment and findings were discussed with dr flores . Impression and the plan of care have been dictated as directed. Bonnie Calvert nurse practitioner acting as a scribe for dr flores Patient Condition at Discharge: Serious Plan - Discharge Summary Discharge Medication List No Known Home Medications [No Known Home Medications] 11/19/16 [History] Follow up Appointment(s)/Referral(s): None,Stated [Primary Care Provider] - 1-2 days Enoch Flores MD [STAFF PHYSICIAN] - 01/18/17 Discharge Disposition: HOME SELF-CARE
--- NOTE | 2017-01-17 18:17 | PN ---
DATE OF SERVICE: 01/16/2017 CHIEF COMPLAINT: Acute alcohol intoxication, DTs and confusion. HISTORY OF PRESENT ILLNESS: This gentleman is doing much better. His orientation has returned. He is not having DTs. He is otherwise stable. PHYSICAL EXAMINATION: CHEST: Clear. CARDIAC: Normal. ABDOMEN: Soft, nontender. He has no neurologic findings. IMPRESSION: 1. Acute alcohol intoxication. 2. Alcoholism. 3. Delirium tremens. PLAN: Discharge today. This will be arranged by the nurse practitioner.
== END 2017-01-16 14:50 | disposition home or self-care (01) | DRG 897 ==
LOC: EC 17:54 → 6ICU 19:34 → 5MS5E 01-13 17:34
PROVIDERS: ADMIT Family Medicine; ATTEND Family Medicine
DX: F10.221 Alcohol dependence with intoxication delirium (principal); D61.818 Other pancytopenia; D69.6 Thrombocytopenia, unspecified; J44.9 Chronic obstructive pulmonary disease, unspecified; F17.200 Nicotine dependence, unspecified, uncomplicated; S40.812A Abrasion of left upper arm, initial encounter; S00.31XA Abrasion of nose, initial encounter; X58.XXXA Exposure to other specified factors, initial encounter; Y92.9 Unspecified place or not applicable
CPT/HCPCS: 36415; 70450; 71010; 80053; 80306; 80320; 82140; 82150; 82330; 82550; 82553; 83690; 83735; 84100; 84484; 85025; 85610; 87324; 93005; 96361; 96365; 96372; 96375; 99285

== ENCOUNTER 2017-01-20 14:42 | Emergency (ER) | payer OTHER ==
--- NOTE | 2017-01-20 15:18 | ED ---
General Adult HPI - General Source: EMS Mode of arrival: EMS Limitations: no limitations <Jose Elias Goff - Last Filed: 01/20/17 19:13> <Mauricio Lehman - Last Filed: 01/21/17 03:44> - General Chief complaint: Alcohol Stated complaint: ETOH Time Seen by Provider: 01/20/17 15:07 - History of Present Illness Initial comments: 46-year-old male presenting for acute alcohol intoxication. Patient states he is a daily drinker. He is not looking for detox this time. States he was renting a room at the [facility] when staff found him passed out and called EMS. EMS brought him to the emergency department. He denies any active medical complaints at this time. He denies any chest pain or shortness of breath. He denies any abdominal pain or nausea or vomiting. He denies any fevers or chills. He denies any suicidal or homicidal ideations. (Jose Elias Goff) - Related Data Home Medications Medication Instructions Recorded Confirmed No Known Home Medications [No 11/19/16 01/20/17 Known Home Medications] Allergies Allergy/AdvReac Type Severity Reaction Status Date / Time No Known Allergies Allergy Verified 01/20/17 14:56 Review of Systems ROS Other: All systems not noted in ROS Statement are negative. <Jose Elias Goff - Last Filed: 01/20/17 19:13> ROS Other: All systems not noted in ROS Statement are negative. <Mauricio Lehman - Last Filed: 01/21/17 03:44> ROS Statement: Those systems with pertinent positive or pertinent negative responses have been documented in the HPI. Past Medical History Additional Past Medical History / Comment(s): ETOH abuse, pt states he cut his left pinky with a table saw. pt poor historian. 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 Past Anesthesia/Blood Transfusion Reactions: No Reported Reaction Past Psychological History: Unable to Obtain Smoking Status: Current every day smoker Past Alcohol Use History: Abuse, Heavy Past Drug Use History: Unable to Obtain - Past Family History Mother Family Medical History: Unable to Obtain Father Family Medical History: Unable to Obtain <Jose Elias Goff - Last Filed: 01/20/17 19:13> General Exam Limitations: no limitations <Jose Elias Goff - Last Filed: 01/20/17 19:13> <Mauricio Lehman - Last Filed: 01/21/17 03:44> - General Exam Comments Initial Comments: General: Awake and Alert. No acute distress. Does not appear acutely ill. Patient appears acutely intoxicated. Eyes: NELSON, EOM intact. No nystagmus. No scleral icterus. HENT: Atraumatic, normocephalic. Mucous membranes moist. Trachea midline. Neck: The neck is supple, there is no tenderness or JVD. Cardiovascular: Regular rate and rhythm. No murmur, rub, or gallop is appreciated. Distal pulses intact. Respiratory: Lungs are clear to auscultation bilaterally. No wheezes, rales, rhonchi. No respiratory distress. Gastrointestinal: Soft, Nontender. No rebound or guarding. Non-distended. No masses or organomegaly noted. No CVA tenderness. Musculoskeletal: No tenderness. Normal ROM. No gross deformity. No strength deficits. Neurological: A&Ox3. CN II-XII grossly intact, There are no obvious motor or sensory deficits. Speech is normal. No tremor. Skin: Skin is warm and dry and no rashes or lesions are noted. Psychiatric: Cooperative, appropriate mood. (Jose Elias Goff) Medical Decision Making <Jose Elias Goff - Last Filed: 01/20/17 19:13> <Mauricio Lehman - Last Filed: 01/21/17 03:44> - Medical Decision Making 56-year-old male presenting for acute alcohol intoxication via EMS. Patient with no active medical complaints. He denies any suicidal or homicidal ideations at this time. States he is homeless but has been renting a room at the [facility]. Patient does not appear to require any medical or psychiatric workup at this time. He is unable to arrange for a ride home. Discussed we will observe him until he is clinically sober and then he'll be stable for discharge home. He is agreeable with this. Patient signed out to overnight physician pending sobriety and discharge. ( Jose Elias Goff) Patient reevaluated by myself, Dr. Lehman. Patient alert and appropriate. Patient oriented 3. Patient is comfortable discharge and has no further plaints. Nursing will have patient ambulate prior to discharge. (Mauricio Lehman) Disposition <Jose Elias Goff - Last Filed: 01/20/17 19:13> <Mauricio Lehman - Last Filed: 01/21/17 03:44> Clinical Impression: Acute alcohol intoxication Disposition: HOME SELF-CARE Condition: Stable Instructions: Alcohol Intoxication (ED) Additional Instructions: Discontinue alcohol use. Return to emergency department for worsening symptoms or other concerns. Referrals: None,Stated [Primary Care Provider] - 1-2 days Bobbi Miller MD [STAFF PHYSICIAN] - 1-2 days
[2017-01-21 03:59] VITALS: BP 125/62; PULSE 72; RESP 18; TEMP 97.5
== END 2017-01-21 03:58 | disposition home or self-care (01) ==
LOC: EC 14:42
DX: F10.129 Alcohol abuse with intoxication, unspecified (principal); F17.200 Nicotine dependence, unspecified, uncomplicated
CPT/HCPCS: 82075; 99284

== ENCOUNTER 2017-01-21 15:55 | Emergency (ER) | payer OTHER ==
[2017-01-21 16:38] LABS: ALT 77 U/L (21-72); AST 74 U/L (17-59); Alkaline Phosphatase 91 U/L (38-126); Anion Gap 18 mmol/L; Blood Urea Nitrogen 7 mg/dL (9-20); Calcium 9.7 mg/dL (8.4-10.2); Carbon Dioxide 21 mmol/L (22-30); Chloride 95 mmol/L (98-107); Glucose 78 mg/dL (74-99); Non-African American GFR(MDRD) >60 (>60 ml/min/1.73 sqM); Potassium 3.5 mmol/L (3.5-5.1); Sodium 134 mmol/L (137-145); Total Protein 7.4 g/dL (6.3-8.2)
[2017-01-21 16:39] LABS: Basophils # (A) 0.1 k/uL (0-0.2); Basophils % (A) 1 %; CH 34.3; CHCM 35.5; Eosinophils # (A) 0.1 k/uL (0-0.7); Eosinophils % (A) 1 %; HCT 38.9 % (39.0-53.0); HDW 2.47; HGB 13.4 gm/dL (13.0-17.5); Luc # (Auto) 0.17; Luc % (Auto) 2; Lymphocytes # (A) 0.6 k/uL (1.0-4.8); Lymphocytes % (A) 7 %; MCH 33.5 pg (25.0-35.0); MCHC 34.6 g/dL (31.0-37.0); Mean Platelet Volume 7.9; Monocytes # (A) 0.5 k/uL (0-1.0); Monocytes % (A) 6 %; Neutrophils # (A) 7.2 k/uL (1.3-7.7); Neutrophils % (A) 84 %; RDW 13.5 % (11.5-15.5); WBC 8.6 k/uL (3.8-10.6); WBC (Perox) 8.47
[2017-01-21 16:50] LABS: Alcohol 361 mg/dL
[2017-01-21] MEDS ORDERED: SODIUM CHLORIDE 0.9% 1,000 ML IV ONE (17:13)
--- NOTE | 2017-01-21 19:28 | ED ---
General Adult HPI - General Chief complaint: Alcohol Stated complaint: ETOH Source: EMS Mode of arrival: EMS Limitations: altered mental status - History of Present Illness Initial comments: 56-year-old male presented for evaluation of alcohol intoxication. cavalry officer say that he was crawling across the street and they were called by bystanders. He has been admitted to this facility multiple times for alcohol intoxication and then discharged. She states that he drinks about a fifth of vodka every day and that is exactly what he had today as well. He denies any falls or other injuries at this time. There is no associated nausea, vomiting, fevers, chills, chest pain, shortness of breath. - Related Data Home Medications Medication Instructions Recorded Confirmed No Known Home Medications [No 11/19/16 01/21/17 Known Home Medications] Allergies Allergy/AdvReac Type Severity Reaction Status Date / Time No Known Allergies Allergy Verified 01/21/17 16:31 Review of Systems ROS Statement: Those systems with pertinent positive or pertinent negative responses have been documented in the HPI. ROS Other: All systems not noted in ROS Statement are negative. Constitutional: Denies: fever, chills Eyes: Denies: eye pain, eye discharge ENT: Denies: ear pain, throat pain Respiratory: Denies: cough, dyspnea Cardiovascular: Denies: chest pain, palpitations Gastrointestinal: Denies: abdominal pain, nausea, vomiting Genitourinary: Denies: urgency, dysuria Musculoskeletal: Denies: back pain, arthralgia, myalgia Skin: Denies: rash, lesions Neurological: Denies: headache, weakness Past Medical History Additional Past Medical History / Comment(s): ETOH abuse, pt states he cut his left pinky with a table saw. pt poor historian. 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 Past Anesthesia/Blood Transfusion Reactions: No Reported Reaction Past Psychological History: Unable to Obtain Smoking Status: Current every day smoker Past Alcohol Use History: Abuse, Heavy Past Drug Use History: Unable to Obtain - Past Family History Mother Family Medical History: Unable to Obtain Father Family Medical History: Unable to Obtain General Exam Limitations: altered mental status General appearance: alert, in no apparent distress, appears intoxicated Head exam: Present: atraumatic, normocephalic, normal inspection Eye exam: Present: normal appearance, PERRL, EOMI. Absent: scleral icterus, conjunctival injection, periorbital swelling ENT exam: Present: normal exam, mucous membranes moist Neck exam: Present: normal inspection. Absent: tenderness, meningismus, lymphadenopathy Respiratory exam: Present: normal lung sounds bilaterally. Absent: respiratory distress, wheezes, rales, rhonchi, stridor Cardiovascular Exam: Present: regular rate, normal rhythm, normal heart sounds. Absent: systolic murmur, diastolic murmur, rubs, gallop, clicks GI/Abdominal exam: Present: soft, normal bowel sounds. Absent: distended, tenderness, guarding, rebound, rigid Rectal exam: Present: deferred Extremities exam: Present: normal inspection, full ROM, normal capillary refill. Absent: tenderness, pedal edema, joint swelling, calf tenderness Back exam: Present: normal inspection Neurological exam: Present: alert, altered (Intoxicated), CN II-XII intact Psychiatric exam: Present: normal affect, normal mood, other (slowed) Skin exam: Present: warm, dry, intact, normal color. Absent: rash Course Vital Signs 01/21/17 01/21/17 16:05 18:41 Temperature 98.7 F 97.0 F L Pulse Rate 108 H 97 Respiratory 16 16 Rate Blood Pressure 111/77 103/66 O2 Sat by Pulse 97 100 Oximetry Medical Decision Making - Medical Decision Making 56-year-old male presented for evaluation of alcohol intoxication. EMS was called by bystanders as he was trying to crawl across the street. Upon initial evaluation the patient is visibly intoxicated and he admits to drinking a fifth of vodka today. Physical exam otherwise reveals no other significant abnormalities. Given that his initial breathalyzer alcohol level is markedly elevated we'll obtain labs and a serum alcohol level for further treatment and evaluation. Patient reevaluated multiple times and on his final reevaluation he was feeling much better. Clinically the patient is sober at this time. He was offered admission to be evaluated by protective services social worker stated that he would rather be discharged and that he would follow up as an outpatient. He was advised to follow-up with his primary care physician but also to return if his symptoms should worsen or persist. The patient acknowledged an understanding of this information and agreed to this plan of care. - Lab Data Result diagrams: 01/21/17 16:15 01/21/17 16:15 Lab Results 01/21/17 01/21/17 Range/Units 16:15 16:15 WBC 8.6 (3.8-10.6) k/uL RBC 4.00 L (4.30-5.90) m/uL Hgb 13.4 (13.0-17.5) gm/dL Hct 38.9 L (39.0-53.0) % MCV 97.0 (80.0-100.0) fL MCH 33.5 (25.0-35.0) pg MCHC 34.6 (31.0-37.0) g/dL RDW 13.5 (11.5-15.5) % Plt Count 272 D (150-450) k/uL Neutrophils % 84 % Lymphocytes % 7 % Monocytes % 6 % Eosinophils % 1 % Basophils % 1 % Neutrophils # 7.2 (1.3-7.7) k/uL Lymphocytes # 0.6 L (1.0-4.8) k/uL Monocytes # 0.5 (0-1.0) k/uL Eosinophils # 0.1 (0-0.7) k/uL Basophils # 0.1 (0-0.2) k/uL Sodium 134 L (137-145) mmol/L Potassium 3.5 (3.5-5.1) mmol/L Chloride 95 L (98-107) mmol/L Carbon Dioxide 21 L (22-30) mmol/L Anion Gap 18 mmol/L BUN 7 L (9-20) mg/dL Creatinine 0.70 (0.66-1.25) mg/dL Est GFR (MDRD) Af Amer >60 (>60 ml/min/1.73 sqM) Est GFR (MDRD) Non-Af >60 (>60 ml/min/1.73 sqM) Glucose 78 (74-99) mg/dL Calcium 9.7 (8.4-10.2) mg/dL Total Bilirubin 1.0 (0.2-1.3) mg/dL AST 74 H (17-59) U/L ALT 77 H (21-72) U/L Alkaline Phosphatase 91 (38-126) U/L Total Protein 7.4 (6.3-8.2) g/dL Albumin 4.4 (3.5-5.0) g/dL Lipase 132 (23-300) U/L Serum Alcohol 361 mg/dL Disposition Clinical Impression: Alcohol intoxication Disposition: HOME SELF-CARE Condition: Stable Instructions: Alcohol Intoxication (ED) Referrals: None,Stated [Primary Care Provider] - 1-2 days Manny Leahy MD [STAFF PHYSICIAN] - 1-2 days Time of Disposition: 00:03
[2017-01-22 00:38] VITALS: BP 135/84; PULSE 100; RESP 18; TEMP 98.4
== END 2017-01-22 00:38 | disposition home or self-care (01) ==
LOC: EC 15:55
DX: F10.129 Alcohol abuse with intoxication, unspecified (principal); F17.200 Nicotine dependence, unspecified, uncomplicated
CPT/HCPCS: 36415; 80053; 80320; 82075; 83690; 85025; 99284

== ENCOUNTER 2017-01-30 20:21 | Observation (INO) | payer OTHER ==
[2017-01-30] MEDS ORDERED: SODIUM CHLORIDE 0.9% 1,000 ML IV STA (20:54)
--- NOTE | 2017-01-30 20:56 | ED ---
General Adult HPI - General Chief complaint: Alcohol Stated complaint: ETOH Time Seen by Provider: 01/30/17 20:25 Source: patient, police, EMS, RN notes reviewed Mode of arrival: EMS Limitations: altered mental status - History of Present Illness Initial comments: Patient is a 56-year-old male presenting to the emergency department for reported alcohol intoxication. Patient states he does drink a lot of alcohol, vodka. Patient admits to being intoxicated. Patient denies any injury. Report is that patient was found urinating and defecating in the room he was staying at. Patient has no complaints. - Related Data Home Medications Medication Instructions Recorded Confirmed No Known Home Medications [No 11/19/16 01/30/17 Known Home Medications] Allergies Allergy/AdvReac Type Severity Reaction Status Date / Time No Known Allergies Allergy Verified 01/30/17 20:32 Review of Systems ROS Statement: Those systems with pertinent positive or pertinent negative responses have been documented in the HPI. ROS Other: All systems not noted in ROS Statement are negative. Constitutional: Denies: fever Eyes: Denies: eye pain ENT: Denies: ear pain Respiratory: Denies: cough Cardiovascular: Denies: chest pain Endocrine: Denies: fatigue Gastrointestinal: Denies: abdominal pain Genitourinary: Denies: dysuria Musculoskeletal: Denies: back pain Skin: Denies: rash Neurological: Denies: weakness Past Medical History Additional Past Medical History / Comment(s): ETOH abuse, pt states he cut his left pinky with a table saw. pt poor historian. 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 Past Anesthesia/Blood Transfusion Reactions: No Reported Reaction Past Psychological History: Unable to Obtain Smoking Status: Current every day smoker Past Alcohol Use History: Abuse, Heavy Past Drug Use History: Unable to Obtain - Past Family History Mother Family Medical History: Unable to Obtain Father Family Medical History: Unable to Obtain General Exam Limitations: altered mental status General appearance: alert, in no apparent distress, appears intoxicated Head exam: Present: atraumatic Eye exam: Present: normal appearance, PERRL, EOMI, nystagmus ENT exam: Present: normal oropharynx Neck exam: Present: normal inspection. Absent: tenderness Respiratory exam: Present: normal lung sounds bilaterally Cardiovascular Exam: Present: regular rate, normal rhythm GI/Abdominal exam: Present: soft. Absent: tenderness Extremities exam: Present: normal inspection, full ROM. Absent: tenderness Neurological exam: Present: alert, oriented X3, CN II-XII intact. Absent: motor sensory deficit Expanded Patient oriented to: Present: person, place, time Cranial nerves: EOM's Intact: Normal Motor strength exam: RUE: 5, LUE: 5, RLE: 5, LLE: 5 Eye Response: (4) open spontaneously Motor Response: (6) obeys commands Verbal Response: (5) oriented Psychiatric exam: Present: normal affect, normal mood Skin exam: Present: normal color Course Vital Signs 01/30/17 20:29 Temperature 97.6 F Pulse Rate 74 Respiratory 20 Rate Blood Pressure 136/80 O2 Sat by Pulse 98 Oximetry Medical Decision Making - Medical Decision Making Patient reevaluated and resting comfortably in bed. Patient updated on results and plan. Dr. Serrano has been paged for admission for hospital call. - Lab Data Result diagrams: 01/30/17 20:45 01/30/17 20:45 Lab Results 01/30/17 01/30/17 01/30/17 Range/Units 20:45 20:45 20:45 WBC 5.8 (3.8-10.6) k/uL RBC 4.67 (4.30-5.90) m/uL Hgb 15.9 (13.0-17.5) gm/dL Hct 46.0 (39.0-53.0) % MCV 98.4 (80.0-100.0) fL MCH 34.0 (25.0-35.0) pg MCHC 34.5 (31.0-37.0) g/dL RDW 13.7 (11.5-15.5) % Plt Count 159 (150-450) k/uL Neutrophils % 66 % Lymphocytes % 27 % Monocytes % 4 % Eosinophils % 1 % Basophils % 1 % Neutrophils # 3.8 (1.3-7.7) k/uL Lymphocytes # 1.6 (1.0-4.8) k/uL Monocytes # 0.3 (0-1.0) k/uL Eosinophils # 0.1 (0-0.7) k/uL Basophils # 0.1 (0-0.2) k/uL PT 10.6 (9.0-12.0) sec INR 1.0 (<1.1) Sodium 144 (137-145) mmol/L Potassium 3.6 (3.5-5.1) mmol/L Chloride 103 (98-107) mmol/L Carbon Dioxide 26 (22-30) mmol/L Anion Gap 15 mmol/L BUN 5 L (9-20) mg/dL Creatinine 0.73 (0.66-1.25) mg/dL Est GFR (MDRD) Af Amer >60 (>60 ml/min/1.73 sqM) Est GFR (MDRD) Non-Af >60 (>60 ml/min/1.73 sqM) Glucose 123 H (74-99) mg/dL Calcium 8.8 (8.4-10.2) mg/dL Magnesium 1.7 (1.6-2.3) mg/dL Total Bilirubin 1.4 H (0.2-1.3) mg/dL AST 126 H (17-59) U/L ALT 70 (21-72) U/L Alkaline Phosphatase 100 (38-126) U/L Total Protein 7.3 (6.3-8.2) g/dL Albumin 4.3 (3.5-5.0) g/dL Amylase 66 (30-110) U/L Lipase 228 (23-300) U/L Serum Alcohol 458 mg/dL Disposition Clinical Impression: Alcoholic intoxication Disposition: ADMITTED IP TO THIS HOSP Referrals: None,Stated [Primary Care Provider] - 1-2 days Decision Time: 21:48
[2017-01-30 21:06] LABS: Basophils # (A) 0.1 k/uL (0-0.2); Basophils % (A) 1 %; CH 34.8; CHCM 35.5; Eosinophils # (A) 0.1 k/uL (0-0.7); Eosinophils % (A) 1 %; HDW 2.42; HGB 15.9 gm/dL (13.0-17.5); Luc # (Auto) 0.08; Luc % (Auto) 2; Lymphocytes # (A) 1.6 k/uL (1.0-4.8); Lymphocytes % (A) 27 %; MCHC 34.5 g/dL (31.0-37.0); MCV 98.4 fL (80.0-100.0); Monocytes # (A) 0.3 k/uL (0-1.0); Monocytes % (A) 4 %; Neutrophils # (A) 3.8 k/uL (1.3-7.7); Neutrophils % (A) 66 %; RBC 4.67 m/uL (4.30-5.90); RDW 13.7 % (11.5-15.5); WBC 5.8 k/uL (3.8-10.6); WBC (Perox) 5.53
[2017-01-30 21:17] LABS: ALT 70 U/L (21-72); AST 126 U/L (17-59); Alkaline Phosphatase 100 U/L (38-126); Amylase 66 U/L (30-110); Anion Gap 15 mmol/L; Blood Urea Nitrogen 5 mg/dL (9-20); Calcium 8.8 mg/dL (8.4-10.2); Carbon Dioxide 26 mmol/L (22-30); Chloride 103 mmol/L (98-107); Glucose 123 mg/dL (74-99); Magnesium 1.7 mg/dL (1.6-2.3); Non-African American GFR(MDRD) >60 (>60 ml/min/1.73 sqM); Potassium 3.6 mmol/L (3.5-5.1); Prothrombin Time 10.6 sec (9.0-12.0); Sodium 144 mmol/L (137-145); Total Bilirubin 1.4 mg/dL (0.2-1.3); Total Protein 7.3 g/dL (6.3-8.2)
[2017-01-30 21:41] LABS: Alcohol 458 mg/dL
[2017-01-30] MEDS ORDERED: NALOXONE 0.4 MG/ML 1 ML VIAL IV PRN (21:48)
[2017-01-30] MEDS ORDERED: THIAMINE 100 MG/ML 2 ML VIAL IM STA (21:50)
[2017-01-30] MEDS: LORazepam 2 MG/ML SYRINGE IV PRN (22:27)
[2017-01-30] MEDS: SODIUM CHLORIDE 0.9% 1,000 ML IV SCH (22:30)
[2017-01-30 23:57] VITALS: BMI 25.0
[2017-01-31] MEDS: LORazepam 2 MG/ML SYRINGE IV PRN ×7 (00:11→21:28)
[2017-01-31] MEDS: FAMOTIDINE 20 MG TAB PO SCH ×2 (09:13→21:28)
[2017-01-31] MEDS: MULTIVITAMINS, THERA 1 EACH TAB PO SCH (13:31)
[2017-01-31] MEDS: THIAMINE 100 MG TAB PO SCH ×3 (13:31→17:13)
--- NOTE | 2017-01-31 16:45 | P.HPIM ---
History of Present Illness H&P Date: 01/31/17 56 yr old with history of alcohol abuse comes into the hospital with acute alcohol intoxication. [facility]. has undergone multiple substance abuse rehab in the last few months. Pt states that he has suffering with depression and hence has been drinking a lot of alcohol At the time of my eval, states that he has palpitations and headaches. Denies having chest pain, nausea, vomiting, diarrhea, auditory or visual hallucinations Does state to have a headache CIWA score around 12 Review of Systems All systems: negative (noted in HPI) Past Medical History Additional Past Medical History / Comment(s): ETOH abuse, pt states he cut his left pinky with a table saw. pt poor historian. 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 Past Anesthesia/Blood Transfusion Reactions: No Reported Reaction Past Psychological History: No Psychological Hx Reported Smoking Status: Current every day smoker Past Alcohol Use History: Abuse, Heavy Past Drug Use History: Unable to Obtain - Past Family History Mother Family Medical History: Cancer Additional Family Medical History / Comment(s): breast cancer Father Family Medical History: No Reported History Medications and Allergies Allergies Allergy/AdvReac Type Severity Reaction Status Date / Time No Known Allergies Allergy Verified 01/30/17 20:32 Physical Exam Vitals: Vital Signs Temp Pulse Pulse Resp BP BP Pulse Ox 01/31/17 16:00 94 16 01/31/17 14:56 98.3 F 94 16 120/80 96 01/31/17 08:00 99 16 01/31/17 07:00 98.1 F 99 16 110/75 96 01/31/17 00:15 98.5 F 102 H 111/71 95 01/30/17 22:32 86 20 109/76 98 01/30/17 20:29 97.6 F 74 20 136/80 98 Intake and Output 01/31/17 01/31/17 01/31/17 06:59 14:59 22:59 Intake Total 600 900 Balance 600 900 Intake: IV 600 600 Sodium Chloride 0.9% 1, 600 600 000 ml @ 75 mls/hr IV . [id number] STA Rx#:[id number] Oral 300 Other: Voiding Method Urinal Urinal Urinal Diaper Diaper Diaper # Voids 2 2 Weight 74.843 kg Patient Weight 02/01/17 06:59 Weight 74.843 kg - Constitutional General appearance: thin - EENT Eyes: EOMI, PERRLA - Neck Neck: normal ROM - Respiratory Respiratory: bilateral: CTA, negative: diminished, dullness, rales, rhonchi - Cardiovascular Rhythm: regular Heart sounds: normal: S1, S2 Abnormal Heart Sounds: no systolic murmur - Gastrointestinal General gastrointestinal: normal bowel sounds, no organomegaly, soft - Integumentary Integumentary: normal - Neurologic Neurologic: CNII-XII intact - Musculoskeletal Musculoskeletal: generalized weakness - Psychiatric Psychiatric: A&O x's 3 (flat affect) Results CBC & Chem 7: 01/30/17 20:45 01/30/17 20:45 Labs: Abnormal Lab Results - Last 24 Hours (Table) 01/30/17 Range/Units 20:45 BUN 5 L (9-20) mg/dL Glucose 123 H (74-99) mg/dL Total Bilirubin 1.4 H (0.2-1.3) mg/dL AST 126 H (17-59) U/L Thrombosis Risk Factor Assmnt - Choose All That Apply Any of the Below Risk Factors Present?: Yes Each Factor Represents 1 point: Age 41-60 years Other Risk Factors: No Other congenital or acquired thrombophilia - If yes, enter type in comment: No Thrombosis Risk Factor Assessment Total Risk Factor Score: 1 Thrombosis Risk Factor Assessment Level: Low Risk Assessment and Plan Plan: Acute alcohol intoxication and some signs of early withdrawal Depression, without suicidal or homicidal ideation Plan CIWA protocol librium 20mg tid NS with MVI thiamine 100mg for 7 days social work consult encourage ambulation vitals stable
[2017-01-31] MEDS: SODIUM CHLORIDE 0.9% 1,000 ML IV SCH (17:31)
[2017-02-01] MEDS: SODIUM CHLORIDE 0.9% 1,000 ML IV SCH ×4 (05:42→23:32)
[2017-02-01] MEDS: LORazepam 2 MG/ML SYRINGE IV PRN ×4 (07:33→23:32)
[2017-02-01] MEDS: FAMOTIDINE 20 MG TAB PO SCH ×2 (07:33→21:47)
[2017-02-01 07:34] VITALS: RESP 18
[2017-02-01] MEDS: MULTIVITAMINS, THERA 1 EACH TAB PO SCH (12:43)
[2017-02-01] MEDS: THIAMINE 100 MG TAB PO SCH ×2 (12:43→15:50)
--- NOTE | 2017-02-01 16:54 | P.PN ---
Subjective 56 yr old with history of alcohol abuse comes into the hospital with acute alcohol intoxication. Pt [facility] a [facility]. has undergone multiple substance abuse rehab in the last few months. Pt states that he has suffering with depression and hence has been drinking a lot of alcohol At the time of my eval, states that he has palpitations and headaches. Denies having chest pain, nausea, vomiting, diarrhea, auditory or visual hallucinations Does state to have a headache CIWA score around 12 02/01/17 CIWA around 9-10 today however is not steady with ambulation denies suicidal or homicidal ideation no visual or auditory hallucinations Objective - Vital Signs Vital signs: Vital Signs Temp 98.8 F 02/01/17 15:00 Pulse 92 02/01/17 15:40 Resp 18 02/01/17 15:40 BP 121/72 02/01/17 15:00 Pulse Ox 95 02/01/17 15:00 Intake & Output 01/31/17 02/01/17 02/01/17 18:59 06:59 18:59 Intake Total 900 Output Total 300 Balance 900 -300 Weight 74.843 kg Intake: IV 600 Sodium Chloride 0.9% 1, 600 000 ml @ 75 mls/hr IV . [id number] STA Rx#:[id number] Oral 300 Output: Urine 300 Other: Voiding Method Urinal Bedside Commode Bedside Commode Diaper # Voids 2 1 1 - Constitutional General appearance: Present: no acute distress - EENT Eyes: Present: PERRLA - Neck Neck: Present: normal ROM - Respiratory Respiratory: bilateral: CTA, negative: diminished, dullness, rales, rhonchi - Cardiovascular Rhythm: regular Heart sounds: normal: S1, S2 Abnormal Heart Sounds: Absent: systolic murmur - Gastrointestinal General gastrointestinal: Present: normal bowel sounds, soft. Absent: organomegaly - Neurologic Neurologic: Present: CNII-XII intact. Absent: focal deficits - Musculoskeletal Musculoskeletal: Absent: gait normal (unsteady, ) - Psychiatric Psychiatric: Present: A&O x's 3 (flat affect) - Labs CBC & Chem 7: 01/30/17 20:45 01/30/17 20:45 Assessment and Plan Plan: Acute alcohol intoxication and some signs of early withdrawal Depression, without suicidal or homicidal ideation Plan CIWA protocol librium 20mg tid NS with MVI thiamine 100mg for 7 days social work consult PT consult, pt's withdrawal symptoms are stable however as [facility] due to his gait instability it would be unsafe to discharge the pt. vitals stable
[2017-02-01] MEDS ORDERED: HALOPERIDOL LACTATE 5 MG/ML 1 ML VIAL IM PRN (20:48)
[2017-02-01] MEDS: NICOTINE 14MG/24HR PATCH TRANSDERM SCH (21:51)
[2017-02-02] MEDS: SODIUM CHLORIDE 0.9% 1,000 ML IV SCH (03:32)
[2017-02-02] MEDS: LORazepam 2 MG/ML SYRINGE IV PRN (05:17)
[2017-02-02 07:41] VITALS: BP 130/93; PULSE 84; TEMP 97.5
[2017-02-02] MEDS: FAMOTIDINE 20 MG TAB PO SCH (09:40)
[2017-02-02] MEDS: NICOTINE 14MG/24HR PATCH TRANSDERM SCH (09:40)
[2017-02-02] MEDS: MULTIVITAMINS, THERA 1 EACH TAB PO SCH (13:21)
[2017-02-02] MEDS: THIAMINE 100 MG TAB PO SCH (13:21)
--- NOTE | 2017-03-11 12:33 | DS ---
DATE OF SERVICE: February 02, 2017 Patient was a 56-year-old admitted with alcohol intoxication, was treated with alcohol withdrawal. Patient's withdraws improved and patient was discharged on February 02, 2017. Patient was seen and examined on that day. Please refer to my depart summary for further details of discharge. Patient was also treated for depression. [facility]
== END 2017-02-02 16:48 | disposition home or self-care (01) ==
LOC: EC 20:21 → 5MS5E 21:50
PROVIDERS: ADMIT Internal Medicine; ATTEND Internal Medicine
DX: F10.229 Alcohol dependence with intoxication, unspecified (principal); F10.239 Alcohol dependence with withdrawal, unspecified; F17.200 Nicotine dependence, unspecified, uncomplicated; R41.82 Altered mental status, unspecified; Y90.8 Blood alcohol level of 240 mg/100 ml or more; F32.9 Major depressive disorder, single episode, unspecified; R51 Headache; R00.2 Palpitations; R26.89 Other abnormalities of gait and mobility
CPT/HCPCS: 96376 ×3; 96361 ×3; 82075; 96372; 96374; 99285; 36415; 97162; 80053; 82150; 83690; 83735; 85025; 85610; 80320; G0378 ×4; S4990 ×2; J2060 ×4; J3411

== ENCOUNTER 2018-09-16 12:05 | Observation (INO) | payer OTHER ==
[2018-09-16] MEDS ORDERED: SODIUM CHLORIDE 0.9% 1,000 ML IV ONE (12:32)
[2018-09-16] MEDS ORDERED: SODIUM CHLORIDE 0.9% 2,000 ML IV ONE (12:33)
[2018-09-16] MEDS ORDERED: ACETAMINOPHEN TAB 325 MG TAB PO STA (12:58)
--- NOTE | 2018-09-16 13:09 | ED ---
Altered Mental Status HPI - General Source: patient, EMS, RN notes reviewed Mode of arrival: EMS Limitations: altered mental status <Quang Wise - Last Filed: 09/16/18 15:45> <Mauricio Lehman - Last Filed: 09/16/18 16:02> - General Chief Complaint: Altered Mental Status Stated Complaint: AMS Time Seen by Provider: 09/16/18 12:14 - History of Present Illness Initial Comments: 58-year-old male presents emergency Department via EMS for also mental status. Patient states he does not know why he states it's all he remembers is waking up being strapped to the stretcher by EMS. Reports were that he was combative, and confused. Patient has no specific complaints at this time. Denies chest pain, shortness breath, nausea, vomiting, diarrhea constipation. Patient is a known alcoholic but states he has not been drinking. Patient denies headache or dizziness denies blurred vision or any focal weakness. Patient is found to have a fever but denies any URI symptoms. Denies any dysuria or hematuria ( Quang Wise) - Related Data Home Medications Medication Instructions Recorded Confirmed No Known Home Medications 09/16/18 09/16/18 Allergies Allergy/AdvReac Type Severity Reaction Status Date / Time No Known Allergies Allergy Verified 09/16/18 12:57 Review of Systems ROS Other: All systems not noted in ROS Statement are negative. <Quang Wise - Last Filed: 09/16/18 15:45> ROS Other: All systems not noted in ROS Statement are negative. <Mauricio Lehman - Last Filed: 09/16/18 16:02> ROS Statement: Those systems with pertinent positive or pertinent negative responses have been documented in the HPI. Past Medical History Additional Past Medical History / Comment(s): ETOH abuse, pt states he cut his left pinky with a table saw. pt poor historian. 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 Past Anesthesia/Blood Transfusion Reactions: No Reported Reaction Past Psychological History: No Psychological Hx Reported Smoking Status: Current every day smoker Past Alcohol Use History: Abuse, Heavy Past Drug Use History: Unable to Obtain - Past Family History Mother Family Medical History: Cancer Additional Family Medical History / Comment(s): breast cancer Father Family Medical History: No Reported History <Quang Wise - Last Filed: 09/16/18 15:45> General Exam Limitations: no limitations General appearance: alert, in no apparent distress Head exam: Present: atraumatic, normocephalic, normal inspection Eye exam: Present: normal appearance, PERRL, EOMI. Absent: scleral icterus, conjunctival injection, periorbital swelling ENT exam: Present: normal exam, normal oropharynx, mucous membranes moist, TM's normal bilaterally Neck exam: Present: normal inspection, full ROM. Absent: tenderness, meningismus, lymphadenopathy Respiratory exam: Present: normal lung sounds bilaterally. Absent: respiratory distress, wheezes, rales, rhonchi, stridor Cardiovascular Exam: Present: normal rhythm, tachycardia, normal heart sounds. Absent: systolic murmur, diastolic murmur, rubs, gallop, clicks GI/Abdominal exam: Present: soft, normal bowel sounds. Absent: distended, tenderness, guarding, rebound, rigid Neurological exam: Present: alert, oriented X3, CN II-XII intact, reflexes normal. Absent: motor sensory deficit Skin exam: Present: warm, dry, intact, normal color. Absent: rash <Quang Wise - Last Filed: 09/16/18 15:45> Course <BinaQuang galan - Last Filed: 09/16/18 15:45> <Mauricio Lehman - Last Filed: 09/16/18 16:02> Vital Signs 09/16/18 09/16/18 09/16/18 12:16 13:17 15:09 Temperature 100.9 F H 98 F Pulse Rate 119 H 105 H 99 Respiratory 16 18 18 Rate Blood Pressure 130/95 138/95 127/99 O2 Sat by Pulse 94 L 99 98 Oximetry - Reevaluation(s) Reevaluation #1: 09/16/18 16:01 Patient reevaluated by myself, Dr. Lehman. Patient a note 3. Patient is acting appropriately. No nuchal rigidity. Patient is updated on results and plan. Case was discussed in detail with Dr. Carcamo, covering for Dr. Bob, time who will admit. (Mauricio Lehman) Medical Decision Making - Lab Data Result diagrams: 09/16/18 12:48 09/16/18 12:48 <Quang Wise - Last Filed: 09/16/18 15:45> - Lab Data Result diagrams: 09/16/18 12:48 09/16/18 12:48 <Mauricio Lehman - Last Filed: 09/16/18 16:02> - Medical Decision Making 58-year-old male presented emergency from for confusion, altered mental status. Patient is not confused at this time though he is found to be febrile, evidence of pneumonia on chest x-ray. Patient will be admitted for pneumonia sepsis. Patient was given IV hydration, antibiotics ordered. Patient may have had a seizure secondary to her jaw as he has a history of alcohol abuse no alcohol is negative at this time. (Quang Wise) - Lab Data Lab Results 09/16/18 09/16/18 09/16/18 Range/Units 12:48 12:48 12:48 WBC 7.1 (3.8-10.6) k/uL RBC 4.37 (4.30-5.90) m/uL Hgb 14.7 (13.0-17.5) gm/dL Hct 45.9 (39.0-53.0) % MCV 105.1 H (80.0-100.0) fL MCH 33.6 (25.0-35.0) pg MCHC 31.9 (31.0-37.0) g/dL RDW 12.4 (11.5-15.5) % Plt Count 72 L (150-450) k/uL Neutrophils % 88 % Lymphocytes % 7 % Monocytes % 3 % Eosinophils % 1 % Basophils % 0 % Neutrophils # 6.2 (1.3-7.7) k/uL Lymphocytes # 0.5 L (1.0-4.8) k/uL Monocytes # 0.2 (0-1.0) k/uL Eosinophils # 0.1 (0-0.7) k/uL Basophils # 0.0 (0-0.2) k/uL Manual Slide Review Performed Large Platelets Present Poikilocytosis (manual Present Macrocytosis Slight PT (9.0-12.0) sec INR (<1.2) APTT (22.0-30.0) sec Sodium 131 L (137-145) mmol/L Potassium 3.7 (3.5-5.1) mmol/L Chloride 93 L (98-107) mmol/L Carbon Dioxide 21 L (22-30) mmol/L Anion Gap 17 mmol/L BUN 15 (9-20) mg/dL Creatinine 0.82 (0.66-1.25) mg/dL Est GFR (CKD-EPI)AfAm >90 (>60 ml/min/1.73 sqM) Est GFR (CKD-EPI)NonAf >90 (>60 ml/min/1.73 sqM) Glucose 108 H (74-99) mg/dL Plasma Lactic Acid Stu (0.7-2.0) mmol/L Calcium 10.4 H (8.4-10.2) mg/dL Total Bilirubin 2.1 H (0.2-1.3) mg/dL AST 102 H (17-59) U/L ALT 148 H (21-72) U/L Alkaline Phosphatase 78 (38-126) U/L Ammonia (<30) umol/L Total Creatine Kinase 385 H (55-170) U/L CK-MB (CK-2) 4.0 H (0.0-2.4) ng/mL CK-MB (CK-2) Rel Index 1.0 Troponin I <0.012 (0.000-0.034) ng/mL Total Protein 7.5 (6.3-8.2) g/dL Albumin 4.6 (3.5-5.0) g/dL Urine Color Urine Appearance (Clear) Urine pH (5.0-8.0) Ur Specific [place] (1.001-1.035) Urine Protein (Negative) Urine Glucose (UA) (Negative) Urine Ketones (Negative) Urine Blood (Negative) Urine Nitrite (Negative) Urine Bilirubin (Negative) Urine Urobilinogen (<2.0) mg/dL Ur Leukocyte Esterase (Negative) Urine RBC (0-5) /hpf Urine WBC (0-5) /hpf Ur Squamous Epith Cells (0-4) /hpf Hyaline Casts (0-2) /lpf Urine Mucus (None) /hpf Urine Opiates Screen (NotDetected) Ur Oxycodone Screen (NotDetected) Urine Methadone Screen (NotDetected) Ur Propoxyphene Screen (NotDetected) Ur Barbiturates Screen (NotDetected) U Tricyclic Antidepress (NotDetected) Ur Phencyclidine Scrn (NotDetected) Ur Amphetamines Screen (NotDetected) U Methamphetamines Scrn (NotDetected) U Benzodiazepines Scrn (NotDetected) Urine Cocaine Screen (NotDetected) U Marijuana (THC) Screen (NotDetected) Serum Alcohol mg/dL Influenza Type A RNA (Not Detectd) Influenza Type B (PCR) (Not Detectd) 09/16/18 09/16/18 09/16/18 Range/Units 12:48 12:48 12:48 WBC (3.8-10.6) k/uL RBC (4.30-5.90) m/uL Hgb (13.0-17.5) gm/dL Hct (39.0-53.0) % MCV (80.0-100.0) fL MCH (25.0-35.0) pg MCHC (31.0-37.0) g/dL RDW (11.5-15.5) % Plt Count (150-450) k/uL Neutrophils % % Lymphocytes % % Monocytes % % Eosinophils % % Basophils % % Neutrophils # (1.3-7.7) k/uL Lymphocytes # (1.0-4.8) k/uL Monocytes # (0-1.0) k/uL Eosinophils # (0-0.7) k/uL Basophils # (0-0.2) k/uL Manual Slide Review Large Platelets Poikilocytosis (manual Macrocytosis PT 10.4 (9.0-12.0) sec INR 1.0 (<1.2) APTT 25.0 (22.0-30.0) sec Sodium (137-145) mmol/L Potassium (3.5-5.1) mmol/L Chloride (98-107) mmol/L Carbon Dioxide (22-30) mmol/L Anion Gap mmol/L BUN (9-20) mg/dL Creatinine (0.66-1.25) mg/dL Est GFR (CKD-EPI)AfAm (>60 ml/min/1.73 sqM) Est GFR (CKD-EPI)NonAf (>60 ml/min/1.73 sqM) Glucose (74-99) mg/dL Plasma Lactic Acid Stu 1.4 (0.7-2.0) mmol/L Calcium (8.4-10.2) mg/dL Total Bilirubin (0.2-1.3) mg/dL AST (17-59) U/L ALT (21-72) U/L Alkaline Phosphatase (38-126) U/L Ammonia 15 (<30) umol/L Total Creatine Kinase (55-170) U/L CK-MB (CK-2) (0.0-2.4) ng/mL CK-MB (CK-2) Rel Index Troponin I (0.000-0.034) ng/mL Total Protein (6.3-8.2) g/dL Albumin (3.5-5.0) g/dL Urine Color Yellow Urine Appearance Clear (Clear) Urine pH 6.0 (5.0-8.0) Ur Specific [place] 1.020 (1.001-1.035) Urine Protein 2+ H (Negative) Urine Glucose (UA) Negative (Negative) Urine Ketones 2+ H (Negative) Urine Blood Trace H (Negative) Urine Nitrite Negative (Negative) Urine Bilirubin 1+ H (Negative) Urine Urobilinogen 6.0 (<2.0) mg/dL Ur Leukocyte Esterase Negative (Negative) Urine RBC <1 (0-5) /hpf Urine WBC 1 (0-5) /hpf Ur Squamous Epith Cells <1 (0-4) /hpf Hyaline Casts 20 H (0-2) /lpf Urine Mucus Moderate H (None) /hpf Urine Opiates Screen Not Detected (NotDetected) Ur Oxycodone Screen Not Detected (NotDetected) Urine Methadone Screen Not Detected (NotDetected) Ur Propoxyphene Screen Not Detected (NotDetected) Ur Barbiturates Screen Not Detected (NotDetected) U Tricyclic Antidepress Not Detected (NotDetected) Ur Phencyclidine Scrn Not Detected (NotDetected) Ur Amphetamines Screen Not Detected (NotDetected) U Methamphetamines Scrn Not Detected (NotDetected) U Benzodiazepines Scrn Not Detected (NotDetected) Urine Cocaine Screen Not Detected (NotDetected) U Marijuana (THC) Screen Not Detected (NotDetected) Serum Alcohol mg/dL Influenza Type A RNA (Not Detectd) Influenza Type B (PCR) (Not Detectd) 09/16/18 09/16/18 Range/Units 13:15 13:50 WBC (3.8-10.6) k/uL RBC (4.30-5.90) m/uL Hgb (13.0-17.5) gm/dL Hct (39.0-53.0) % MCV (80.0-100.0) fL MCH (25.0-35.0) pg MCHC (31.0-37.0) g/dL RDW (11.5-15.5) % Plt Count (150-450) k/uL Neutrophils % % Lymphocytes % % Monocytes % % Eosinophils % % Basophils % % Neutrophils # (1.3-7.7) k/uL Lymphocytes # (1.0-4.8) k/uL Monocytes # (0-1.0) k/uL Eosinophils # (0-0.7) k/uL Basophils # (0-0.2) k/uL Manual Slide Review Large Platelets Poikilocytosis (manual Macrocytosis PT (9.0-12.0) sec INR (<1.2) APTT (22.0-30.0) sec Sodium (137-145) mmol/L Potassium (3.5-5.1) mmol/L Chloride (98-107) mmol/L Carbon Dioxide (22-30) mmol/L Anion Gap mmol/L BUN (9-20) mg/dL Creatinine (0.66-1.25) mg/dL Est GFR (CKD-EPI)AfAm (>60 ml/min/1.73 sqM) Est GFR (CKD-EPI)NonAf (>60 ml/min/1.73 sqM) Glucose (74-99) mg/dL Plasma Lactic Acid Stu (0.7-2.0) mmol/L Calcium (8.4-10.2) mg/dL Total Bilirubin (0.2-1.3) mg/dL AST (17-59) U/L ALT (21-72) U/L Alkaline Phosphatase (38-126) U/L Ammonia (<30) umol/L Total Creatine Kinase (55-170) U/L CK-MB (CK-2) (0.0-2.4) ng/mL CK-MB (CK-2) Rel Index Troponin I (0.000-0.034) ng/mL Total Protein (6.3-8.2) g/dL Albumin (3.5-5.0) g/dL Urine Color Urine Appearance (Clear) Urine pH (5.0-8.0) Ur Specific [place] (1.001-1.035) Urine Protein (Negative) Urine Glucose (UA) (Negative) Urine Ketones (Negative) Urine Blood (Negative) Urine Nitrite (Negative) Urine Bilirubin (Negative) Urine Urobilinogen (<2.0) mg/dL Ur Leukocyte Esterase (Negative) Urine RBC (0-5) /hpf Urine WBC (0-5) /hpf Ur Squamous Epith Cells (0-4) /hpf Hyaline Casts (0-2) /lpf Urine Mucus (None) /hpf Urine Opiates Screen (NotDetected) Ur Oxycodone Screen (NotDetected) Urine Methadone Screen (NotDetected) Ur Propoxyphene Screen (NotDetected) Ur Barbiturates Screen (NotDetected) U Tricyclic Antidepress (NotDetected) Ur Phencyclidine Scrn (NotDetected) Ur Amphetamines Screen (NotDetected) U Methamphetamines Scrn (NotDetected) U Benzodiazepines Scrn (NotDetected) Urine Cocaine Screen (NotDetected) U Marijuana (THC) Screen (NotDetected) Serum Alcohol <10 mg/dL Influenza Type A RNA Not Detected (Not Detectd) Influenza Type B (PCR) Not Detected (Not Detectd) 09/16/18 15:04 EKG performed at 12:35 sinus tachycardia with rate 121 RI 134 QRS 76 QT/QTC 322/ 457 (Quang Wise) Disposition <Quang Wise - Last Filed: 09/16/18 15:45> <Mauricio Lehman - Last Filed: 09/16/18 16:02> Clinical Impression: Confusion, Pneumonia, Elevated LFTs, Sepsis Disposition: ADMITTED IP TO THIS HOSP Condition: Fair Referrals: Shreyas Bob MD [Primary Care Provider] - 1-2 days
[2018-09-16 13:16] LABS: Lactic Acid, Venous 1.4 mmol/L (0.7-2.0)
[2018-09-16 13:17] LABS: ALT 148 U/L (21-72); AST 102 U/L (17-59); Albumin 4.6 g/dL (3.5-5.0); Alkaline Phosphatase 78 U/L (38-126); Anion Gap 17 mmol/L; Blood Urea Nitrogen 15 mg/dL (9-20); Calcium 10.4 mg/dL (8.4-10.2); Carbon Dioxide 21 mmol/L (22-30); Chloride 93 mmol/L (98-107); Glucose 108 mg/dL (74-99); Potassium 3.7 mmol/L (3.5-5.1); Sodium 131 mmol/L (137-145); Total Bilirubin 2.1 mg/dL (0.2-1.3); Total Protein 7.5 g/dL (6.3-8.2)
[2018-09-16 13:23] LABS: Prothrombin Time 10.4 sec (9.0-12.0)
[2018-09-16 13:25] LABS: Basophils % (A) 0 %; Eosinophils # (A) 0.1 k/uL (0-0.7); Eosinophils % (A) 1 %; HCT 45.9 % (39.0-53.0); HGB 14.7 gm/dL (13.0-17.5); Lymphocytes # (A) 0.5 k/uL (1.0-4.8); Lymphocytes % (A) 7 %; MCH 33.6 pg (25.0-35.0); MCHC 31.9 g/dL (31.0-37.0); MCV 105.1 fL (80.0-100.0); Macrocytosis Slight; Monocytes # (A) 0.2 k/uL (0-1.0); Monocytes % (A) 3 %; Neutrophils # (A) 6.2 k/uL (1.3-7.7); Neutrophils % (A) 88 %; RBC 4.37 m/uL (4.30-5.90); RDW 12.4 % (11.5-15.5); WBC 7.1 k/uL (3.8-10.6)
[2018-09-16 13:31] LABS: Amphetamine Screen,Urine Not Detected (NotDetected); Barbiturate Screen,Urine Not Detected (NotDetected); Benzodiazepines Screen,Urine Not Detected (NotDetected); Cocaine Screen,Urine Not Detected (NotDetected); Creatine Kinase 385 U/L (55-170); Methadone Screen, Urine Not Detected (NotDetected); Opiate Screen,Urine Not Detected (NotDetected); Oxycodone Screen, Urine Not Detected (NotDetected); Phencyclidine Screen,Urine Not Detected (NotDetected); Tricyclic Antidepressant,Urine Not Detected (NotDetected); Urn Cannabinoid Scrn Not Detected (NotDetected)
[2018-09-16 13:34] LABS: Appearance,Urine Clear (Clear); Bilirubin,Urine 1+ (Negative); Blood,Urine Trace (Negative); Color,Urine Yellow; Glucose,Urine (UA) Negative (Negative); Hyaline Casts,Urine 20 /lpf (0-2); Ketones,Urine 2+ (Negative); Leukocyte Esterase,Urine Negative (Negative); Mucus,Urine Moderate /hpf; Nitrite,Urine Negative (Negative); Protein,Urine 2+ (Negative); RBC,Urine <1 /hpf (0-5); Squamous Epithelial Cell,Urine <1 /hpf (0-4); WBC,Urine 1 /hpf (0-5)
[2018-09-16 13:39] LABS: Large Platelets Present; Platelet Count 72 k/uL (150-450)
[2018-09-16 13:40] LABS: Poikilocytosis (M) Present
[2018-09-16 13:44] LABS: Troponin I <0.012 ng/mL (0.000-0.034)
--- NOTE | 2018-09-16 14:00 | CT ---
EXAMINATION TYPE: CT brain wo con DATE OF EXAM: 09/16/2018 COMPARISON: Previous study dated 01/12/2017 HISTORY: Altered mental status CT DLP: 1074.4 mGycm Automated exposure control for dose reduction was used. FINDINGS: There are generalized changes of sulcal prominence and ventriculomegaly, compatible with atrophic tata nge. There is diffuse periventricular white matter lucency, compatible small vessel ischemic change. There is no acute focal lesion, mass effect or midline shift identified. I do not see evidence of int racranial blood. Visualized portions of the paranasal sinuses and mastoids are clear. IMPRESSION: 1. NO ACUTE INTRACRANIAL ABNORMALITY. 2. DEGENERATIVE CHANGE.
--- NOTE | 2018-09-16 14:04 | XR ---
EXAMINATION TYPE: XR chest 2V DATE OF EXAM: 09/16/2018 HISTORY: altered mental status. REFERENCE: Previous study dated 01/12/2017. FINDINGS: There is a questionable opacity in the right lower lobe. This might represent pneumonia. Th e lungs are otherwise clear. Pleural space are clear. The heart is not enlarged. IMPRESSION: QUESTIONABLE AREA OF INFILTRATION IN THE RIGHT LOWER LOBE.
--- NOTE | 2018-09-16 14:44 | US ---
EXAMINATION TYPE: US gallbladder DATE OF EXAM: 09/16/2018 COMPARISON: NONE CLINICAL HISTORY: Pain. AMS, pt confused, remembers eating [employer]itos and watching tv then landed here, no abd pain at time of exam EXAM MEASUREMENTS: Liver Length: 14.6 cm Gallbladder Wall: 0.2 cm CBD: 0.5 cm Right Kidney: 9.7 x 5.9 x 5.5 cm Pancreas: limited views appear wnl Liver: heterogeneous Gallbladder: wnl Evidence for sonographic Hager's sign: no CBD: wnl Right Kidney: wnl IMPRESSION: No gallstones or dilated ducts. Negative exam.
[2018-09-16] MEDS ORDERED: AZITHROMYCIN 500 MG in SODIUM CHLORIDE 0.9% 250 ML IVPB STA (14:57)
[2018-09-16] MEDS ORDERED: IPRATROPIUM-ALBUTEROL 3 ML NEB INHALATION PRN (15:14)
[2018-09-16] MEDS ORDERED: PNEUMONIA PROTOCOL UTILIZED 1 EACH MISC PO PRN (15:14)
[2018-09-16] MEDS ORDERED: SODIUM CHLORIDE 0.9% 500 ML 500 ML IV ONE (15:15)
[2018-09-16] MEDS ORDERED: LORazepam 2 MG/ML INJ IV PRN ×3 (15:31)
[2018-09-16 21:33] VITALS: BMI 25.8
[2018-09-16] MEDS: THIAMINE 100 MG TAB PO SCH (21:36)
--- NOTE | 2018-09-16 22:11 | P.HPIM ---
History of Present Illness H&P Date: 09/16/18 Chief Complaint: right lower lobe pneumonia/alcohol withdrawal. This is a 58 year old male with no prior medical history and not taking any prescription one of Dr.Mullaly Pritchett, was brought into the ER at [facility] because the patient was agitated and was strapped down in the ambulance and was given versed to calm him down, upon arrival to the ER was more lucid and it was thought that the patient had a withdrawal seizure therefore he was placed on CIWA protocol, and had a CXR which showed right lower lobe pneumonia, he was started on Rocephin and zithromax and was admitted to the hospital and he will be monitored overnight. Review of Systems Constitutional: Denies anorexia, Denies chronic headaches, Denies lethargy, Denies weakness, Denies weight gain Eyes: denies blurred vision, denies bulging eye, denies decreased vision Ears, nose, mouth and throat: Denies dysphagia, Denies epistaxis, Denies neck lump Cardiovascular: Reports decreased exercise tolerance, Reports dyspnea on exertion, Reports shortness of breath, Denies chest pain, Denies lightheadedness , Denies rapid heart beat, Denies syncope Respiratory: Reports congestion, Reports cough with sputum, Reports respiratory infections, Reports wheezing, Denies home oxygen, Denies sleep apnea, Denies snoring Gastrointestinal: Denies abdominal pain, Denies bloating, Denies BRBPR, Denies heartburn, Denies melena, Denies nausea, Denies vomiting Genitourinary: Denies dysuria Musculoskeletal: Denies atrophy, Denies low back pain, Denies neck stiffness Musculoskeletal: absent: ankle pain, ankle stiffness, ankle swelling, elbow pain , elbow stiffness, elbow swelling, foot pain, foot stiffness, foot swelling, hand pain, hand stiffness, hand swelling, hip pain, hip stiffness, hip swelling , knee pain, knee stiffness, knee swelling, shoulder pain, shoulder stiffness, shoulder swelling, wrist pain, wrist stiffness, wrist swelling Integumentary: Denies pruritus, Denies rash Neurological: Reports confusion, Denies numbness, Denies weakness Psychiatric: Denies anxiety, Denies depression Endocrine: Denies fatigue, Denies weight change Past Medical History Past Medical History: Pneumonia Additional Past Medical History / Comment(s): ETOH abuse, pt states he cut his left pinky with a table saw. pt nellie historian. 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 Past Anesthesia/Blood Transfusion Reactions: No Reported Reaction Past Psychological History: No Psychological Hx Reported Smoking Status: Current every day smoker (Patient smokes about 1/2 PPD since he was a teenager.) Past Alcohol Use History: Abuse, Heavy (Patient drinks 12 beer per week.) Additional Past Alcohol Use History / Comment(s): drinks 8-15 beers a week Past Drug Use History: None Reported - Past Family History Mother Family Medical History: Cancer (Mother at the age of 70 from bone disease and breast cancer.) Additional Family Medical History / Comment(s): breast cancer Father Family Medical History: No Reported History (Father at the age of 72 and also Gout.) Brother(s) Family Medical History: No Reported History (Patient has one brother no major medical problems.) Sister(s) Family Medical History: No Reported History (Patient has 3 sisters with no medical issues.) Son(s) Family Medical History: No Reported History (Patient has one son no major medical problems.) Daughter(s) Family Medical History: No Reported History (Patint has 2 daughters with no medical issues) Medications and Allergies Home Medications Medication Instructions Recorded Confirmed Type No Known Home Medications 09/16/18 09/16/18 History Allergies Allergy/AdvReac Type Severity Reaction Status Date / Time No Known Allergies Allergy Verified 09/16/18 12:57 Physical Exam Vitals: Vital Signs Temp Pulse Resp BP Pulse Ox 09/16/18 20:24 98.1 F 97 18 155/78 97 09/16/18 17:25 88 18 131/84 98 09/16/18 15:09 98 F 99 18 127/99 98 09/16/18 13:17 105 H 18 138/95 99 09/16/18 12:16 100.9 F H 119 H 16 130/95 94 L Intake and Output 09/16/18 09/16/18 09/16/18 06:59 14:59 22:59 Other: Weight 79.379 kg 79.379 kg - Constitutional General appearance: average body habitus, no acute distress - EENT Eyes: anicteric sclerae, EOMI, PERRLA, no ptosis, no scleral icterus, normal appearance ENT: hearing grossly normal, NA/AT, normal oropharynx Ears: bilateral: normal - Neck Neck: no lymphadenopathy, normal ROM, no stridor, no thyromegaly Carotids: bilateral: upstroke normal Thyroid: bilateral: normal size - Respiratory Respiratory: bilateral: diminished, negative: dullness, rales, rhonchi, wheezing , prolonged expiration, prolonged inspiration - Cardiovascular Rhythm: regular Heart sounds: normal: S1, S2 Abnormal Heart Sounds: no systolic murmur, no S3 Gallop - Gastrointestinal General gastrointestinal: normal bowel sounds, soft, no splenomegaly, no tenderness, no umbilical hernia, ventral hernia - Integumentary Integumentary: normal - Neurologic Neurologic: CNII-XII intact - Musculoskeletal Musculoskeletal: generalized weakness, strength equal bilaterally - Psychiatric Psychiatric: A&O x's 3, appropriate affect, intact judgment & insight Results CBC & Chem 7: 09/16/18 12:48 09/16/18 12:48 Labs: Abnormal Lab Results - Last 24 Hours (Table) 09/16/18 09/16/18 09/16/18 Range/Units 12:48 12:48 12:48 MCV 105.1 H (80.0-100.0) fL Plt Count 72 L (150-450) k/uL Lymphocytes # 0.5 L (1.0-4.8) k/uL Sodium 131 L (137-145) mmol/L Chloride 93 L (98-107) mmol/L Carbon Dioxide 21 L (22-30) mmol/L Glucose 108 H (74-99) mg/dL Calcium 10.4 H (8.4-10.2) mg/dL Total Bilirubin 2.1 H (0.2-1.3) mg/dL AST 102 H (17-59) U/L ALT 148 H (21-72) U/L Total Creatine Kinase 385 H (55-170) U/L CK-MB (CK-2) 4.0 H (0.0-2.4) ng/mL Urine Protein (Negative) Urine Ketones (Negative) Urine Blood (Negative) Urine Bilirubin (Negative) Hyaline Casts (0-2) /lpf Urine Mucus (None) /hpf 09/16/18 Range/Units 12:48 MCV (80.0-100.0) fL Plt Count (150-450) k/uL Lymphocytes # (1.0-4.8) k/uL Sodium (137-145) mmol/L Chloride (98-107) mmol/L Carbon Dioxide (22-30) mmol/L Glucose (74-99) mg/dL Calcium (8.4-10.2) mg/dL Total Bilirubin (0.2-1.3) mg/dL AST (17-59) U/L ALT (21-72) U/L Total Creatine Kinase (55-170) U/L CK-MB (CK-2) (0.0-2.4) ng/mL Urine Protein 2+ H (Negative) Urine Ketones 2+ H (Negative) Urine Blood Trace H (Negative) Urine Bilirubin 1+ H (Negative) Hyaline Casts 20 H (0-2) /lpf Urine Mucus Moderate H (None) /hpf Microbiology - Last 24 Hours (Table) 09/16/18 12:48 Urine Culture - Preliminary Urine,Voided Thrombosis Risk Factor Assmnt - DVT/VTE Prophylaxis DVT/VTE Prophylaxis: Pharmacologic Prophylaxis ordered, Mechanical Prophylaxis ordered - Choose All That Apply Any of the Below Risk Factors Present?: Yes Each Factor Represents 1 point: Age 41-60 years, Serious lung disease incl. pneumonia (< 1month) Other Risk Factors: No Other congenital or acquired thrombophilia - If yes, enter type in comment: No Thrombosis Risk Factor Assessment Total Risk Factor Score: 2 Thrombosis Risk Factor Assessment Level: Low Risk Assessment and Plan Assessment: Assessment and plan: 1. Possible right lower lobe pneumonia. will continue with Rocephin and Zithromax along with Duoneb. 2. Hyponatremia. likely related to one. 3. Alcohol withdrawal. we will start on CIWA protocol. 4. Chronic tobacco use and dependence. smoking cessation and counseling. 5. Chronic ETOH use and dependence. Abstinence from ETOH. 6. DVT prophylaxis. we will continue with Heparin 5000 units SC q 8 h and bilateral Ernie Hose knee-high. 7. GI prophylaxis. we will continue with Pepcid 20 mg orally bid. 8. Admits to inpatient. estimated length of stay 2 midnights. 9. Full code.
[2018-09-17] MEDS: HEPARIN SODIUM,PORCINE 5,000 UNIT/ML 1 ML VIAL SQ SCH ×3 (00:03→16:51)
[2018-09-17 08:49] LABS: Basophils % (A) 0 %; Eosinophils # (A) 0.1 k/uL (0-0.7); Eosinophils % (A) 2 %; HCT 41.4 % (39.0-53.0); HGB 13.1 gm/dL (13.0-17.5); Lymphocytes # (A) 1.1 k/uL (1.0-4.8); Lymphocytes % (A) 21 %; MCH 33.1 pg (25.0-35.0); MCHC 31.7 g/dL (31.0-37.0); MCV 104.5 fL (80.0-100.0); Macrocytosis Slight; Mean Platelet Volume 9.3; Monocytes # (A) 0.2 k/uL (0-1.0); Monocytes % (A) 5 %; Neutrophils # (A) 3.5 k/uL (1.3-7.7); Neutrophils % (A) 69 %; RBC 3.96 m/uL (4.30-5.90); RDW 12.2 % (11.5-15.5)
[2018-09-17 08:51] LABS: Platelet Count 61 k/uL (150-450)
[2018-09-17 09:02] LABS: ALT 110 U/L (21-72); AST 66 U/L (17-59); Albumin 3.9 g/dL (3.5-5.0); Alkaline Phosphatase 66 U/L (38-126); Anion Gap 10 mmol/L; Blood Urea Nitrogen 12 mg/dL (9-20); Calcium 9.5 mg/dL (8.4-10.2); Carbon Dioxide 22 mmol/L (22-30); Chloride 102 mmol/L (98-107); Glucose 83 mg/dL (74-99); Sodium 134 mmol/L (137-145); Total Bilirubin 1.5 mg/dL (0.2-1.3); Total Protein 6.6 g/dL (6.3-8.2)
[2018-09-17] MEDS: AZITHROMYCIN 500 MG in SODIUM CHLORIDE 0.9% 250 ML IVPB SCH (09:38)
[2018-09-17] MEDS: FAMOTIDINE 20 MG TAB PO SCH ×2 (09:38→20:14)
[2018-09-17] MEDS: THIAMINE 100 MG TAB PO SCH ×2 (09:39→17:22)
--- NOTE | 2018-09-17 09:46 | XR ---
EXAMINATION TYPE: XR chest 2V DATE OF EXAM: 09/17/2018 COMPARISON: 09/16/2018 HISTORY: Concern for right middle lobe pneumonia. Altered mental status. TECHNIQUE: Frontal and lateral views of the chest are obtained. FINDINGS: The previously seen right lower lung opacity has resolved in the interim and may have repre sented atelectasis. There is no focal air space opacity, pleural effusion, or pneumothorax seen. Th e cardiac silhouette size is within normal limits. The osseous structures are intact. [id number] ate multilevel degenerative changes of the thoracic spine are noted. IMPRESSION: Resolution of the previously seen right lower lung opacity, likely resolved atelectasis. No acute cardiothoracic process.
[2018-09-17] MEDS: POTASSIUM CHLORIDE ER 20 MEQ TAB.ER PO SCH ×2 (11:16→13:27)
--- NOTE | 2018-09-17 15:48 | P.PN ---
Subjective Progress Note Date: 09/17/18 This is a 58 year old male with no prior medical history and not taking any prescription one of Dr.Mullaly rPitchett, was brought into the ER at [facility] because the patient was agitated and was strapped down in the ambulance and was given versed to calm him down, upon arrival to the ER was more lucid and it was thought that the patient had a withdrawal seizure therefore he was placed on CIWA protocol, and had a CXR which showed right lower lobe pneumonia, he was started on Rocephin and zithromax and was admitted to the hospital and he will be monitored overnight. 09/17: Patient states that his breathing is a little bit better from yesterday. He is continued on azithromycin and ceftriaxone as well as DuoNeb treatments. Patient states he slept well during the night. He has cough with no phlegm production. He states he is eating and drinking okay. Nursing staff states the patient is very unsteady on his feet. We will add in PT evaluation. Anticipate discharge home tomorrow. Review of Systems Constitutional: Denies anorexia, Denies chronic headaches, Denies lethargy, Denies weakness, Denies weight gain Eyes: denies blurred vision, denies bulging eye, denies decreased vision Ears, nose, mouth and throat: Denies dysphagia, Denies epistaxis, Denies neck lump Cardiovascular: Reports decreased exercise tolerance, Reports dyspnea on exertion, Reports shortness of breath, Denies chest pain, Denies lightheadedness , Denies rapid heart beat, Denies syncope Respiratory: Reports congestion, Reports cough with sputum, Reports respiratory infections, Reports wheezing, Denies home oxygen, Denies sleep apnea, Denies snoring Gastrointestinal: Denies abdominal pain, Denies bloating, Denies BRBPR, Denies heartburn, Denies melena, Denies nausea, Denies vomiting denies loss of appetite Genitourinary: Denies dysuria Musculoskeletal: Denies atrophy, Denies low back pain, Denies neck stiffness Musculoskeletal: absent: ankle pain, ankle stiffness, ankle swelling, elbow pain , elbow stiffness, elbow swelling, foot pain, foot stiffness, foot swelling, hand pain, hand stiffness, hand swelling, hip pain, hip stiffness, hip swelling , knee pain, knee stiffness, knee swelling, shoulder pain, shoulder stiffness, shoulder swelling, wrist pain, wrist stiffness, wrist swelling Integumentary: Denies pruritus, Denies rash Neurological: Reports confusion, Denies numbness, Denies weakness Psychiatric: Denies anxiety, Denies depression Endocrine: Denies fatigue, Denies weight change Objective - Vital Signs Vital signs: Vital Signs Temp 98.1 F 09/17/18 05:00 Pulse 76 09/17/18 05:00 Resp 16 09/17/18 05:00 BP 129/86 09/17/18 05:00 Pulse Ox 94 L 09/17/18 05:00 Intake & Output 09/16/18 09/17/18 09/17/18 18:59 06:59 18:59 Intake Total 640 Output Total 600 Balance 40 Weight 79.379 kg 79.379 kg Intake: Intake, IV Titration 50 Amount cefTRIAXone 1,000 mg In 50 Sodium Chloride 0.9% 50 ml @ 100 mls/hr IVPB Q12H [facility] Rx#:[id number] Oral 590 Output: Urine 600 Other: Voiding Method Urinal # Voids 1 - Exam General appearance: average body habitus, no acute distress while at rest - EENT Eyes: anicteric sclerae, EOMI, PERRLA, no ptosis, no scleral icterus, normal appearance ENT: hearing grossly normal, NA/AT, normal oropharynx Ears: bilateral: normal - Neck Neck: no lymphadenopathy, normal ROM, no stridor, no thyromegaly Carotids: bilateral: upstroke normal Thyroid: bilateral: normal size - Respiratory Respiratory: bilateral: diminished, negative: dullness, rales, rhonchi, wheezing , prolonged expiration, prolonged inspiration - Cardiovascular Rhythm: regular Heart sounds: normal: S1, S2 Abnormal Heart Sounds: no systolic murmur, no S3 Gallop - Gastrointestinal General gastrointestinal: normal bowel sounds, soft, no splenomegaly, no tenderness, no umbilical hernia, ventral hernia - Integumentary Integumentary: normal - Neurologic Neurologic: CNII-XII intact - Musculoskeletal Musculoskeletal: generalized weakness, strength equal bilaterally - Psychiatric Psychiatric: A&O x's 3, appropriate affect, intact judgment & insight - Labs CBC & Chem 7: 09/17/18 08:20 09/17/18 08:20 Labs: Abnormal Lab Results - Last 24 Hours (Table) 09/16/18 09/16/18 09/16/18 Range/Units 12:48 12:48 12:48 RBC (4.30-5.90) m/uL MCV 105.1 H (80.0-100.0) fL Plt Count 72 L (150-450) k/uL Lymphocytes # 0.5 L (1.0-4.8) k/uL Sodium 131 L (137-145) mmol/L Potassium (3.5-5.1) mmol/L Chloride 93 L (98-107) mmol/L Carbon Dioxide 21 L (22-30) mmol/L Glucose 108 H (74-99) mg/dL Calcium 10.4 H (8.4-10.2) mg/dL Total Bilirubin 2.1 H (0.2-1.3) mg/dL AST 102 H (17-59) U/L ALT 148 H (21-72) U/L Total Creatine Kinase 385 H (55-170) U/L CK-MB (CK-2) 4.0 H (0.0-2.4) ng/mL Urine Protein (Negative) Urine Ketones (Negative) Urine Blood (Negative) Urine Bilirubin (Negative) Hyaline Casts (0-2) /lpf Urine Mucus (None) /hpf 09/16/18 09/17/18 09/17/18 Range/Units 12:48 08:20 08:20 RBC 3.96 L (4.30-5.90) m/uL MCV 104.5 H (80.0-100.0) fL Plt Count 61 L (150-450) k/uL Lymphocytes # (1.0-4.8) k/uL Sodium 134 L (137-145) mmol/L Potassium 3.0 L (3.5-5.1) mmol/L Chloride (98-107) mmol/L Carbon Dioxide (22-30) mmol/L Glucose (74-99) mg/dL Calcium (8.4-10.2) mg/dL Total Bilirubin 1.5 H (0.2-1.3) mg/dL AST 66 H (17-59) U/L ALT 110 H (21-72) U/L Total Creatine Kinase (55-170) U/L CK-MB (CK-2) (0.0-2.4) ng/mL Urine Protein 2+ H (Negative) Urine Ketones 2+ H (Negative) Urine Blood Trace H (Negative) Urine Bilirubin 1+ H (Negative) Hyaline Casts 20 H (0-2) /lpf Urine Mucus Moderate H (None) /hpf Microbiology - Last 24 Hours (Table) 09/16/18 12:48 Urine Culture - Preliminary Urine,Voided Assessment and Plan Plan: 1. Possible right lower lobe pneumonia. will continue with Rocephin and Zithromax along with Duoneb. 2. Hyponatremia. likely related to one. 3. Alcohol withdrawal. we will start on CIWA protocol. 4. Chronic tobacco use and dependence. smoking cessation and counseling. 5. Chronic ETOH use and dependence. Abstinence from ETOH. 6. DVT prophylaxis. we will continue with Heparin 5000 units SC q 8 h and bilateral Ernie Hose knee-high. 7. GI prophylaxis. we will continue with Pepcid 20 mg orally bid. 8. Full code. Discharge plan: Home tomorrow. PT evaluation requested. Impression and plan of care have been directed as dictated by the signing physician. Aleta Miguel nurse practitioner acting as scribe for signing physician.
[2018-09-18] MEDS: HEPARIN SODIUM,PORCINE 5,000 UNIT/ML 1 ML VIAL SQ SCH ×2 (00:39→08:25)
[2018-09-18] MEDS: FAMOTIDINE 20 MG TAB PO SCH (08:24)
[2018-09-18] MEDS: AZITHROMYCIN 500 MG in SODIUM CHLORIDE 0.9% 250 ML IVPB SCH (08:25)
[2018-09-18] MEDS: THIAMINE 100 MG TAB PO SCH (11:13)
[2018-09-18 11:29] VITALS: BP 123/76; PULSE 81; RESP 18; TEMP 98
--- NOTE | 2018-09-18 12:57 | P.DS ---
Providers Date of admission: 09/16/18 16:02 Expected date of discharge: 09/18/18 Attending physician: Alix Carcamo Primary care physician: Shreyas Bob [place] [facility] Course: This is a 58 year old male with no prior medical history and not taking any prescription one of Dr.Mullaly Pritchett, was brought into the ER at [facility] because the patient was agitated and was strapped down in the ambulance and was given versed to calm him down, upon arrival to the ER was more lucid and it was thought that the patient had a withdrawal seizure therefore he was placed on CIWA protocol, and had a CXR which showed right lower lobe pneumonia, he was started on Rocephin and zithromax and was admitted to the hospital and he will be monitored overnight. 09/17: Patient states that his breathing is a little bit better from yesterday. He is continued on azithromycin and ceftriaxone as well as DuoNeb treatments. Patient states he slept well during the night. He has cough with no phlegm production. He states he is eating and drinking okay. Nursing staff states the patient is very unsteady on his feet. We will add in PT evaluation. Anticipate discharge home tomorrow. 09/18: Patient states that his breathing is improved today, he feels stronger with ambulation. He states he is ready for discharge home. Lungs are clear to auscultation. Patient will be discharged home today in stable condition. Discharge diagnoses: 1. Possible right lower lobe pneumonia. 2. Hyponatremia. 3. Alcohol withdrawal. 4. Chronic tobacco use and dependence. smoking cessation and counseling. 5. Chronic ETOH use and dependence. Abstinence from ETOH. Discharge plan: Home Impression and plan of care have been directed as dictated by the signing physician. Aleta Miguel nurse practitioner acting as scribe for signing physician. Patient Condition at Discharge: Good Plan - Discharge Summary New Discharge Prescriptions: New Thiamine [Vitamin B-1] 100 mg PO BID@1200,1700 tab Azithromycin [Zithromax] 500 mg PO DAILY #7 tab Discharge Medication List Azithromycin [Zithromax] 500 mg PO DAILY #7 tab 09/17/18 [Rx] Thiamine [Vitamin B-1] 100 mg PO BID@1200,1700 tab 09/17/18 [Rx] Follow up Appointment(s)/Referral(s): Shreyas Bob MD [Primary Care Provider] - 09/24/18 1:00 pm Patient Instructions/Handouts: Azithromycin (By mouth), Sepsis (GEN), Pneumonia (DC) Care Plan Goals (MU): patient has medication from home down in pharmacy please get medication at time of discharge and send home with patient. Discharge Disposition: HOME SELF-CARE
[2018-09-19] MEDS ORDERED: AZITHROMYCIN 500 MG TAB PO SCH (09:00)
== END 2018-09-18 15:10 | disposition home or self-care (01) ==
LOC: EC 12:05 → INTOOBSV 16:02 → 3NMEDONC 16:02 → UNDODISIN 09-18 15:10
PROVIDERS: ADMIT Internal Medicine; ATTEND Internal Medicine
DX: R05 Cough (principal); E87.1 Hypo-osmolality and hyponatremia; F10.239 Alcohol dependence with withdrawal, unspecified; Z80.3 Family history of malignant neoplasm of breast; Z87.11 Personal history of peptic ulcer disease; R26.81 Unsteadiness on feet; F17.210 Nicotine dependence, cigarettes, uncomplicated
CPT/HCPCS: 96376; 96361 ×3; 96366 ×2; 96372 ×2; 96365; 96367; 96375; 99285; 36415; 94760; 93005; 97161; 80053 ×2; 82140; 82550; 82553; 83605; 84484; 85025 ×2; 85610; 85730; 81001; 87040; 80306; 87086; 87502; 71046 ×2; 76705; 70450; G0378 ×3; G0480; J2060; J1644 ×2; J0456 ×3; J0696 ×3; 80320

== ENCOUNTER 2019-01-18 14:21 | Observation (INO) | payer OTHER ==
[2019-01-18] MEDS ORDERED: SODIUM CHLORIDE 0.9% 1,000 ML IV STA (14:33)
[2019-01-18] MEDS ORDERED: LORazepam 2 MG/ML INJ IV PRN ×2 (14:34)
[2019-01-18] MEDS ORDERED: THIAMINE 100 MG/ML 2 ML VIAL IM STA (14:34)
[2019-01-18 14:46] LABS: Glucose,Whole Blood 77 mg/dL (75-99)
[2019-01-18 15:35] LABS: Basophils # (A) 0.1 k/uL (0-0.2); Basophils % (A) 1 %; Eosinophils % (A) 0 %; Lymphocytes # (A) 1.4 k/uL (1.0-4.8); Lymphocytes % (A) 14 %; MCH 34.9 pg (25.0-35.0); MCHC 33.4 g/dL (31.0-37.0); MCV 104.5 fL (80.0-100.0); Macrocytosis Slight; Mean Platelet Volume 7.7; Monocytes # (A) 0.2 k/uL (0-1.0); Monocytes % (A) 2 %; Neutrophils # (A) 8.1 k/uL (1.3-7.7); Neutrophils % (A) 81 %; RBC 4.31 m/uL (4.30-5.90); RDW 13.6 % (11.5-15.5)
[2019-01-18 15:37] LABS: Platelet Count 333 k/uL (150-450)
[2019-01-18 15:47] LABS: ALT 31 U/L (21-72); AST 42 U/L (17-59); Albumin 4.4 g/dL (3.5-5.0); Alkaline Phosphatase 62 U/L (38-126); Anion Gap 15 mmol/L; Blood Urea Nitrogen 14 mg/dL (9-20); Calcium 9.3 mg/dL (8.4-10.2); Carbon Dioxide 17 mmol/L (22-30); Chloride 100 mmol/L (98-107); Glucose 63 mg/dL (74-99); Lipase 65 U/L (23-300); Magnesium 1.9 mg/dL (1.6-2.3); Phosphorus 3.5 mg/dL (2.5-4.5); Potassium 5.4 mmol/L (3.5-5.1); Sodium 132 mmol/L (137-145); Total Bilirubin 0.5 mg/dL (0.2-1.3); Total Protein 6.9 g/dL (6.3-8.2)
[2019-01-18 16:19] LABS: Alcohol 369 mg/dL
[2019-01-18] MEDS ORDERED: NALOXONE 0.4 MG/ML 1 ML VIAL IV PRN (18:27)
[2019-01-18] MEDS ORDERED: SODIUM CHLORIDE 0.9% 1,000 ML with MVI, ADULT NO.4 WITH VIT K 10 ML, THIAMINE 100 MG, F... IV ONE ×4 (18:27)
--- NOTE | 2019-01-18 18:28 | ED ---
Alcohol HPI - General Chief Complaint: Alcohol Stated Complaint: ETOH Time Seen by Provider: 01/18/19 14:31 Source: patient Mode of arrival: ambulatory Limitations: no limitations - History of Present Illness Initial Comments: 58 year male presenting for alcohol intoxication. Patient was brought in by EMS after staff police were called for a call intoxication at patient's home. Family felt pt was neglecting self care. Pt has no complaints on arrival. Patient denies any recent fever, chills, shortness of breath, chest pain, back pain, abdominal pain, nausea or vomiting, numbness or tingling, dysuria or hematuria, constipation or diarrhea, headaches or visual changes, or any other complaints. Pt appears well AAOx3. No tremor or signs of DT. Smells of alcohol. States he drank "a few beers today" - Related Data Previous Rx's Medication Instructions Recorded LORazepam [Ativan] 1 mg PO QID 3 Days #12 tab 12/03/18 Thiamine [Vitamin B-1] 100 mg PO BID@1200,1700 tab 12/03/18 Allergies Allergy/AdvReac Type Severity Reaction Status Date / Time No Known Allergies Allergy Verified 01/18/19 14:48 Review of Systems ROS Statement: Those systems with pertinent positive or pertinent negative responses have been documented in the HPI. ROS Other: All systems not noted in ROS Statement are negative. Past Medical History Past Medical History: Unable to Obtain, Pneumonia Additional Past Medical History / Comment(s): ETOH abuse, pt states he cut his left pinky with a table saw. pt poor historian. 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 Past Anesthesia/Blood Transfusion Reactions: No Reported Reaction Past Psychological History: No Psychological Hx Reported Smoking Status: Current every day smoker Past Alcohol Use History: Abuse, Heavy Past Drug Use History: None Reported - Past Family History Mother Family Medical History: Cancer Additional Family Medical History / Comment(s): breast cancer Father Family Medical History: No Reported History Brother(s) Family Medical History: No Reported History Sister(s) Family Medical History: No Reported History Son(s) Family Medical History: No Reported History Daughter(s) Family Medical History: No Reported History General Exam - General Exam Comments Initial Comments: General: The patient is awake and alert, in no distress, and does not appear acutely ill. Eye: Pupils are equal, round and reactive to light, extra-ocular movements are intact. No nystagmus. There is normal conjunctiva bilaterally. No signs of icterus. Ears, nose, mouth and throat: There are moist mucous membranes and no oral lesions. Neck: The neck is supple, there is no tenderness or JVD. Cardiovascular: There is a regular rate and rhythm. No murmur, rub or gallop is appreciated. Respiratory: Lungs are clear to auscultation, respirations are non-labored, breath sounds are equal. No wheezes, stridor, rales, or rhonchi. Gastrointestinal: Soft, non-distended, non-tender abdomen without masses or organomegaly noted. There is no rebound or guarding present. No CVA tenderness. Bowel sounds are unremarkable. Musculoskeletal: Normal ROM, no tenderness. Strength 5/5. Sensation intact. Pulses equal bilaterally 2+. Neurological: A&O x 3. CN II-XII intact, There are no obvious motor or sensory deficits. Coordination appears grossly intact. Speech is normal. No tremor. Skin: Skin is warm and dry and no rashes or lesions are noted. Psychiatric: Cooperative, appropriate mood & affect, normal judgment. Limitations: no limitations Course Vital Signs 01/18/19 01/18/19 01/18/19 14:26 16:06 17:24 Temperature 97 F L Pulse Rate 91 107 H 96 Respiratory 20 16 18 Rate Blood Pressure 137/100 103/69 106/76 O2 Sat by Pulse 100 97 98 Oximetry Medical Decision Making - Medical Decision Making Pleasantly intoxicated 58-year-old male presenting for alcohol intoxication. Brought in by EMS. She is alert and oriented without no signs of delirium tremens. No nystagmus evidence of trauma or focal deficits on neurological examination. Patient smells of alcohol. History of alcohol abuse. Patient denies history of seizure history. 369 alcohol level. Pt placed on [facility] protocols. Will be admitted for ETOH intoxication. Glucose 63, given sandwich, apple juice. Pt has no complaints. Pt transfered to floor appearing well. Pt g iven thiamine, and banana bag in ER. Patient was evaluated in person by attending provider Dr. Velázquez, who agreed with impression plan and spoke with admitting provider Dr Fuchs. - Lab Data Result diagrams: 01/18/19 15:00 01/18/19 15:16 Lab Results 01/18/19 01/18/19 01/18/19 Range/Units 14:45 15:00 15:16 WBC 10.0 (3.8-10.6) k/uL RBC 4.31 (4.30-5.90) m/uL Hgb 15.0 D (13.0-17.5) gm/dL Hct 45.0 (39.0-53.0) % MCV 104.5 H (80.0-100.0) fL MCH 34.9 (25.0-35.0) pg MCHC 33.4 (31.0-37.0) g/dL RDW 13.6 (11.5-15.5) % Plt Count 333 D (150-450) k/uL Neutrophils % 81 % Lymphocytes % 14 % Monocytes % 2 % Eosinophils % 0 % Basophils % 1 % Neutrophils # 8.1 H (1.3-7.7) k/uL Lymphocytes # 1.4 (1.0-4.8) k/uL Monocytes # 0.2 (0-1.0) k/uL Eosinophils # 0.0 (0-0.7) k/uL Basophils # 0.1 (0-0.2) k/uL Macrocytosis Slight Sodium 132 L (137-145) mmol/L Potassium 5.4 H (3.5-5.1) mmol/L Chloride 100 (98-107) mmol/L Carbon Dioxide 17 L (22-30) mmol/L Anion Gap 15 mmol/L BUN 14 (9-20) mg/dL Creatinine 0.81 (0.66-1.25) mg/dL Est GFR (CKD-EPI)AfAm >90 (>60 ml/min/1.73 sqM) Est GFR (CKD-EPI)NonAf >90 (>60 ml/min/1.73 sqM) Glucose 63 L (74-99) mg/dL POC Glucose (mg/dL) 77 (75-99) mg/dL POC Glu [employer] ID PetitprenLeonoraLakeisha Calcium 9.3 (8.4-10.2) mg/dL Phosphorus 3.5 (2.5-4.5) mg/dL Magnesium 1.9 (1.6-2.3) mg/dL Total Bilirubin 0.5 (0.2-1.3) mg/dL AST 42 (17-59) U/L ALT 31 (21-72) U/L Alkaline Phosphatase 62 (38-126) U/L Total Protein 6.9 (6.3-8.2) g/dL Albumin 4.4 (3.5-5.0) g/dL Lipase 65 (23-300) U/L Serum Alcohol 369 H* mg/dL Disposition Clinical Impression: Alcohol intoxication Disposition: ADMITTED IP TO THIS HOSP Condition: Stable Is patient prescribed a controlled substance at d/c from ED?: No Time of Disposition: 18:26 Decision to Admit Reason: Admit from EC Decision Date: 01/18/19 Decision Time: 18:26
[2019-01-18 19:56] VITALS: RESP 16
[2019-01-18 20:19] LABS: Glucose,Whole Blood 168 mg/dL (75-99)
[2019-01-18 21:05] LABS: ALT 26 U/L (21-72); AST 38 U/L (17-59); Alkaline Phosphatase 54 U/L (38-126); Anion Gap 12 mmol/L; Blood Urea Nitrogen 16 mg/dL (9-20); Calcium 9.4 mg/dL (8.4-10.2); Carbon Dioxide 21 mmol/L (22-30); Chloride 100 mmol/L (98-107); Glucose 142 mg/dL (74-99); Magnesium 1.8 mg/dL (1.6-2.3); Potassium 4.4 mmol/L (3.5-5.1); Sodium 133 mmol/L (137-145); Total Bilirubin 0.3 mg/dL (0.2-1.3); Total Protein 6.3 g/dL (6.3-8.2)
[2019-01-18] MEDS ORDERED: ACETAMINOPHEN TAB 325 MG TAB PO PRN (21:23)
[2019-01-18] MEDS ORDERED: ONDANSETRON 4 MG/2 ML VIAL IVP PRN (21:23)
[2019-01-18] MEDS: LORazepam 2 MG/ML INJ IV PRN (22:59)
[2019-01-18] MEDS: THIAMINE 100 MG TAB PO SCH (23:04)
[2019-01-18] MEDS: SODIUM CHLORIDE 0.9% 1,000 ML IV SCH (23:04)
[2019-01-18 23:19] LABS: Appearance,Urine Clear (Clear); Bilirubin,Urine Negative (Negative); Blood,Urine Negative (Negative); Color,Urine Yellow; Glucose,Urine (UA) Negative (Negative); Ketones,Urine Negative (Negative); Leukocyte Esterase,Urine Negative (Negative); Nitrite,Urine Negative (Negative); PH, Urine 5.5 (5.0-8.0); Protein,Urine Negative (Negative); Specific Gravity,Urine 1.018 (1.001-1.035); Urobilinogen,Urine <2.0 mg/dL (<2.0)
[2019-01-18 23:34] LABS: Amphetamine Screen,Urine Not Detected (NotDetected); Barbiturate Screen,Urine Not Detected (NotDetected); Benzodiazepines Screen,Urine Not Detected (NotDetected); Cocaine Screen,Urine Not Detected (NotDetected); Methadone Screen, Urine Not Detected (NotDetected); Opiate Screen,Urine Not Detected (NotDetected); Oxycodone Screen, Urine Not Detected (NotDetected); Phencyclidine Screen,Urine Not Detected (NotDetected); Tricyclic Antidepressant,Urine Not Detected (NotDetected); Urn Cannabinoid Scrn Not Detected (NotDetected)
[2019-01-18 23:57] VITALS: BMI 22.1
[2019-01-19 02:23] LABS: Glucose,Whole Blood 128 mg/dL (75-99)
[2019-01-19 06:15] LABS: Glucose,Whole Blood 97 mg/dL (75-99)
[2019-01-19] MEDS ORDERED: 1: MVI, ADULT NO.4 WITH VIT K 10 ML, THIAMINE 100 MG, FOLIC ACID 1 MG in SODIUM CHLORIDE IV SCH ×4 (08:00)
[2019-01-19] MEDS: SODIUM CHLORIDE 0.9% 1,000 ML IV SCH (08:12)
[2019-01-19] MEDS: THIAMINE 100 MG TAB PO SCH (08:48)
[2019-01-19] MEDS: LORazepam 2 MG/ML INJ IV PRN (08:48)
[2019-01-19 08:51] LABS: Basophils % (A) 1 %; Eosinophils # (A) 0.1 k/uL (0-0.7); Eosinophils % (A) 1 %; HCT 39.7 % (39.0-53.0); HGB 13.3 gm/dL (13.0-17.5); Lymphocytes # (A) 0.7 k/uL (1.0-4.8); Lymphocytes % (A) 14 %; MCH 35.1 pg (25.0-35.0); MCHC 33.4 g/dL (31.0-37.0); MCV 105.1 fL (80.0-100.0); Macrocytosis Slight; Mean Platelet Volume 7.6; Monocytes # (A) 0.4 k/uL (0-1.0); Monocytes % (A) 8 %; Neutrophils # (A) 3.6 k/uL (1.3-7.7); Neutrophils % (A) 74 %; Platelet Count 251 k/uL (150-450); RBC 3.77 m/uL (4.30-5.90); RDW 12.9 % (11.5-15.5); WBC 4.8 k/uL (3.8-10.6)
[2019-01-19 09:12] LABS: ALT 36 U/L (21-72); AST 42 U/L (17-59); Albumin 4.1 g/dL (3.5-5.0); Alkaline Phosphatase 52 U/L (38-126); Anion Gap 4 mmol/L; Blood Urea Nitrogen 18 mg/dL (9-20); Calcium 9.7 mg/dL (8.4-10.2); Carbon Dioxide 24 mmol/L (22-30); Chloride 106 mmol/L (98-107); Glucose 98 mg/dL (74-99); Potassium 4.8 mmol/L (3.5-5.1); Sodium 134 mmol/L (137-145); Total Protein 6.6 g/dL (6.3-8.2)
--- NOTE | 2019-01-19 09:48 | P.HPIM ---
History of Present Illness H&P Date: 01/19/19 Chief Complaint: ETOH intoxication This is a 58-year-old gentleman with no prior medical history who presented to the emergency department for alcohol intoxication. Route in by EMS after police were called for intoxication at the patient's home. Family felt the patient was neglecting his self-care. Upon arrival to the emergency department he did not have any complaints. Patient denied any recent fever, chills, shortness of breath, chest pain, or any other complaints. Patient does not have any tremor or signs of DT at that time. However he did smell of al cohol and stated that he had drank a few beers that day. Patient is seen today without any complaints. Patient states that yesterday he had a total of 6 beers and has decided that he no longer wants to continue drinking and would like some help. Patient has been recently evicted from his home. Patient states that he is not having any auditory or visual hallucinations, no tremors or signs of DT at this time. Patient was previously admitted and November and was sent home on Ativan 1 mg 4 times a day. Patient states that he was unable to take that amount because it caused him to be very drowsy so he would only take it once or twice a day. Review of Systems All systems: negative Constitutional: Reports poor appetite, Denies chills, Denies fever, Denies malaise Eyes: denies blurred vision, denies pain Ears, nose, mouth and throat: Denies headache, Denies sore throat Cardiovascular: Denies chest pain, Denies palpitations, Denies shortness of wyatt th Respiratory: Denies cough, Denies dyspnea Gastrointestinal: Denies abdominal pain, Denies diarrhea, Denies nausea, Denies vomiting Genitourinary: Denies dysuria Musculoskeletal: Denies myalgias Integumentary: Denies pruritus, Denies rash Neurological: Denies numbness, Denies weakness Psychiatric: Denies anxiety, Denies depression, Denies hallucinations, Denies paranoia, Denies suicidal ideation Endocrine: Denies fatigue, Denies weight change Past Medical History Past Medical History: Unable to Obtain, Pneumonia Additional Past Medical History / Comment(s): ETOH abuse, pt states he cut his left pinky with a table saw. pt poor historian. 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 Past Anesthesia/Blood Transfusion Reactions: No Reported Reaction Past Psychological History: No Psychological Hx Reported Smoking Status: Current every day smoker Past Alcohol Use History: Abuse, Heavy Past Drug Use History: None Reported - Past Family History Mother Family Medical History: Cancer Additional Family Medical History / Comment(s): breast cancer Father Family Medical History: No Reported History Brother(s) Family Medical History: No Reported History Sister(s) Family Medical History: No Reported History Son(s) Family Medical History: No Reported History Daughter(s) Family Medical History: No Reported History Medications and Allergies Home Medications Medication Instructions Recorded Confirmed Type Thiamine [Vitamin B-1] 100 mg PO BID@1200,1700 tab 12/03/18 01/18/19 Rx Thiamine [Vitamin B-1] 100 mg PO BID-W/MEALS tab 01/19/19 Rx chlordiazePOXIDE HCL [Librium] 5 mg PO TID 3 Days #9 cap 01/19/19 Rx chlordiazePOXIDE HCL [Librium] 5 mg PO TID 5 Days #15 cap 01/19/19 Rx Allergies Allergy/AdvReac Type Severity Reaction Status Date / Time No Known Allergies Allergy Verified 01/18/19 14:48 Physical Exam Vitals: Vital Signs Temp Pulse Pulse Resp BP BP Pulse Ox 01/19/19 06:11 98.3 F 101 H 16 113/72 96 01/18/19 21:30 98.0 F 99 16 118/64 98 01/18/19 19:54 94 16 103/73 100 01/18/19 17:24 96 18 106/76 98 01/18/19 16:06 107 H 16 103/69 97 01/18/19 14:26 97 F L 91 20 137/100 100 Intake and Output 01/18/19 01/19/19 01/19/19 22:59 06:59 14:59 Other: Voiding Method Toilet Toilet # Voids 1 3 Weight 68.2 kg - Constitutional General appearance: cooperative, disheveled, no acute distress - EENT Eyes: anicteric sclerae, EOMI, PERRLA ENT: hearing grossly normal, NA/AT - Neck Neck: no lymphadenopathy, normal ROM - Respiratory Respiratory: bilateral: CTA, negative: diminished, dullness, rales, rhonchi, wheezing, prolonged expiration, prolonged inspiration, other - Cardiovascular Rhythm: regular Heart sounds: normal: S1, S2 Abnormal Heart Sounds: no systolic murmur, no diastolic murmur, no rub, no S3 Gallop, no S4 Gallop, no click, no other - Gastrointestinal General gastrointestinal: no hepatomegaly, normal bowel sounds, no organomegaly, soft, no splenomegaly, no tenderness - Integumentary Integumentary: decreased turgor, pale - Neurologic Neurologic: CNII-XII intact, focal deficits - Musculoskeletal Musculoskeletal: gait normal, strength equal bilaterally - Psychiatric Psychiatric: A&O x's 3, appropriate affect, intact judgment & insight Results CBC & Chem 7: 01/19/19 08:08 01/19/19 08:08 Labs: Abnormal Lab Results - Last 24 Hours (Table) 01/18/19 01/18/19 01/18/19 Range/Units 15:00 15:16 20:07 RBC (4.30-5.90) m/uL MCV 104.5 H (80.0-100.0) fL MCH (25.0-35.0) pg Neutrophils # 8.1 H (1.3-7.7) k/uL Lymphocytes # (1.0-4.8) k/uL Sodium 132 L (137-145) mmol/L Potassium 5.4 H (3.5-5.1) mmol/L Carbon Dioxide 17 L (22-30) mmol/L Glucose 63 L (74-99) mg/dL POC Glucose (mg/dL) 168 H (75-99) mg/dL Serum Alcohol 369 H* mg/dL 01/18/19 01/19/19 01/19/19 Range/Units 20:09 02:22 08:08 RBC 3.77 L (4.30-5.90) m/uL MCV 105.1 H (80.0-100.0) fL MCH 35.1 H (25.0-35.0) pg Neutrophils # (1.3-7.7) k/uL Lymphocytes # 0.7 L (1.0-4.8) k/uL Sodium 133 L (137-145) mmol/L Potassium (3.5-5.1) mmol/L Carbon Dioxide 21 L (22-30) mmol/L Glucose 142 H (74-99) mg/dL POC Glucose (mg/dL) 128 H (75-99) mg/dL Serum Alcohol mg/dL 01/19/19 Range/Units 08:08 RBC (4.30-5.90) m/uL MCV (80.0-100.0) fL MCH (25.0-35.0) pg Neutrophils # (1.3-7.7) k/uL Lymphocytes # (1.0-4.8) k/uL Sodium 134 L (137-145) mmol/L Potassium (3.5-5.1) mmol/L Carbon Dioxide (22-30) mmol/L Glucose (74-99) mg/dL POC Glucose (mg/dL) (75-99) mg/dL Serum Alcohol mg/dL Thrombosis Risk Factor Assmnt - Choose All That Apply Any of the Below Risk Factors Present?: Yes Each Factor Represents 1 point: Age 41-60 years Other Risk Factors: No Other congenital or acquired thrombophilia - If yes, enter type in comment: No Thrombosis Risk Factor Assessment Total Risk Factor Score: 1 Thrombosis Risk Factor Assessment Level: Low Risk Assessment and Plan Plan: 1. EtOH intoxication. Social work consult. Patient to be discharged home today after social work consult with instructions for recovery assistance. Librium 5 mg 3 times a day for 5 days prescription given. Ativan 1 mg every 2 hours, thiamine 100 mg twice a day, thiamine folic acid supplement IV 2. Chronic EtOH use and dependence. Social work consult. 3. Chronic tobacco use and dependence. Smoking cessation and counseling. Discharge plan: Home Impression and plan of care have been directed as dictated by the signing physician. Gloria Tan nurse practitioner acting as scribe for signing physician.
[2019-01-19 11:55] LABS: Glucose,Whole Blood 170 mg/dL (75-99)
--- NOTE | 2019-01-19 12:36 | P.DS ---
Providers Date of admission: 01/18/19 18:26 Attending physician: Hayde Fuchs MD Primary care physician: [facility] Course: This is a 58-year-old gentleman with no prior medical history who presented to the emergency department for alcohol intoxication. Route in by EMS after police were called for intoxication at the patient's home. Family felt the patient was neglecting his self-care. Upon arrival to the emergency department he did not have any complaints. Patient denied any recent fever, chills, shortness of breath, chest pain, or any other complaints. Patient does not have any tremor or signs of DT at that time. However he did smell of alcohol and stated that he had drank a few beers that day. Patient is seen today without any complaints. Patient states that yesterday he had a total of 6 beers and has decided that he no longer wants to continue drinking and would like some help. Patient has been recently evicted from his home. Patient states that he is not having any auditory or visual hallucinations, no tremors or signs of DT at this time. Patient was previously admitted and November and was sent home on Ativan 1 mg 4 times a day. Patient states that he was unable to take that amount because it caused him to be very drowsy so he would only take it once or twice a day. Discharge diagnosis 1. EtOH intoxication. 2. Chronic EtOH use and dependence. 3. Chronic tobacco use and dependence. Smoking cessation and counseling. Discharge disposition: Home Impression and plan of care have been directed as dictated by the signing physician. Gloria Tan nurse practitioner acting as scribe for signing physician. . Patient Condition at Discharge: Stable Plan - Discharge Summary New Discharge Prescriptions: New chlordiazePOXIDE HCL [Librium] 5 mg PO TID 3 Days #9 cap Thiamine [Vitamin B-1] 100 mg PO BID-W/MEALS tab chlordiazePOXIDE HCL [Librium] 5 mg PO TID 5 Days #15 cap Continue Thiamine [Vitamin B-1] 100 mg PO BID@1200,1700 tab Discontinued LORazepam [Ativan] 1 mg PO QID 3 Days #12 tab Discharge Medication List Thiamine [Vitamin B-1] 100 mg PO BID@1200,1700 tab 12/03/18 [Rx] Thiamine [Vitamin B-1] 100 mg PO BID-W/MEALS tab 01/19/19 [Rx] chlordiazePOXIDE HCL [Librium] 5 mg PO TID 3 Days #9 cap 01/19/19 [Rx] chlordiazePOXIDE HCL [Librium] 5 mg PO TID 5 Days #15 cap 01/19/19 [Rx] Follow up Appointment(s)/Referral(s): Shreyas Bob MD [Primary Care Provider] - 1-2 days (Patient to make own follow up appt. Office closed at time of discharge. ) Patient Instructions/Handouts: Chlordiazepoxide (By mouth), Abuse of Alcohol (DC), Alcohol Withdrawal (DC) Activity/Diet/Wound Care/Special Instructions: [facility] Patient to follow-up with [facility] post discharge for assistance with housing and substance abuse treatment Alcoholics Anonymous [facility] # [phone]
[2019-01-19 13:28] VITALS: PULSE 88; TEMP 97.7
[2019-01-19 13:29] VITALS: BP 141/92
== END 2019-01-19 14:20 | disposition home or self-care (01) ==
LOC: EC 14:21 → 3NMEDONC 18:26
PROVIDERS: ADMIT Internal Medicine; ATTEND Internal Medicine
DX: F10.229 Alcohol dependence with intoxication, unspecified (principal); Y90.8 Blood alcohol level of 240 mg/100 ml or more; F17.200 Nicotine dependence, unspecified, uncomplicated; Z79.899 Other long term (current) drug therapy; Z87.01 Personal history of pneumonia (recurrent); Z87.828 Personal history of other (healed) physical injury and trauma; Z87.11 Personal history of peptic ulcer disease; Z80.3 Family history of malignant neoplasm of breast
CPT/HCPCS: 96376; 96366 ×2; 96375; 82075; 96361; 96365; 96372; 99284; 99285; 36415; 80053 ×2; 83690; 83735; 84100; 85025 ×2; 81003; 80306; G0378 ×2; G0480; J2060 ×2; J3411 ×2; 80320